=== PATIENT | male | born 1960 | race Hispanic/Latino ===

== ENCOUNTER 2019-12-10 10:41 | Outpatient (CLI) | payer BC, SELFPAY ==
[2019-12-10 11:27] LABS: Anion Gap 7 mmol/L (8-16); Blood Urea Nitrogen 26 mg/dL (9-20); Calcium 8.6 mg/dL (8.4-10.2); Carbon Dioxide 30 mmol/L (22-30); Chloride 101 mmol/L (98-107); Cholesterol 159 mg/dL (0-200); Estimated Glomerular Filt Rate > 60; Glucose 110 mg/dL (75-110); HDL Direct 42 mg/dL; Potassium 3.2 mmol/L (3.4-5.0); Sodium 138 mmol/L (137-145); Triglycerides 115 mg/dL (<150)
[2019-12-10 11:37] LABS: LDL Cholesterol Direct 91 mg/dL
[2019-12-10 11:59] LABS: MALB Creatinine Ratio < 5.4 mg/g (0-30); Microalbumin Urine Random < 6.0 mg/L (0-16.7)
== END 2019-12-10 10:42 | disposition home or self-care (01) ==
PROVIDERS: PCP Internal Medicine; Visit Provider Internal Medicine Endocrinology, Diabetes & Metabolism
DX: E11.65 Type 2 diabetes mellitus with hyperglycemia (principal)
CPT/HCPCS: 36415; 80048; 80061; 82043; 82607

== ENCOUNTER 2019-12-31 10:58 | Outpatient (CLI) | payer BC, SELFPAY ==
[2019-12-31 11:35] LABS: Anion Gap 8 mmol/L (8-16); Blood Urea Nitrogen 20 mg/dL (9-20); Calcium 9.3 mg/dL (8.4-10.2); Carbon Dioxide 32 mmol/L (22-30); Chloride 98 mmol/L (98-107); Estimated Glomerular Filt Rate > 60; Glucose 97 mg/dL (75-110); Potassium 3.7 mmol/L (3.4-5.0); Sodium 138 mmol/L (137-145)
== END 2019-12-31 10:59 | disposition home or self-care (01) ==
LOC: ANHLAB 11:01
PROVIDERS: PCP Internal Medicine; Visit Provider Internal Medicine Endocrinology, Diabetes & Metabolism
DX: E11.65 Type 2 diabetes mellitus with hyperglycemia (principal); E87.6 Hypokalemia
CPT/HCPCS: 36415; 80048

== ENCOUNTER 2020-07-23 10:10 | Outpatient (CLI) | payer BC, SELFPAY ==
[2020-07-23 12:29] LABS: Anion Gap 6 mmol/L (8-16); Blood Urea Nitrogen 20 mg/dL (9-20); Carbon Dioxide 30 mmol/L (22-30); Chloride 102 mmol/L (98-107); Estimated Glomerular Filt Rate > 60; Glucose 98 mg/dL (75-110); Potassium 3.4 mmol/L (3.4-5.0); Sodium 138 mmol/L (137-145)
== END 2020-07-23 10:11 | disposition home or self-care (01) ==
LOC: ANHWCLAB 10:13
PROVIDERS: PCP Internal Medicine; Visit Provider Internal Medicine Endocrinology, Diabetes & Metabolism
DX: E11.65 Type 2 diabetes mellitus with hyperglycemia (principal); E87.6 Hypokalemia
CPT/HCPCS: 36415; 80048

== ENCOUNTER 2020-09-02 07:23 | Outpatient (CLI) | payer BC, SELFPAY | END 2020-09-02 07:24 | disposition home or self-care (01) | LOC: ANHAUDIO 07:25 | PROVIDERS: PCP Internal Medicine; Visit Provider Nurse Practitioner Family | DX: R42 Dizziness and giddiness (principal); H90.3 Sensorineural hearing loss, bilateral | CPT/HCPCS: 92537; 92540; 92546; 92557; 92567 ==

== ENCOUNTER 2021-06-24 09:16 | Outpatient (CLI) | payer BC, SELFPAY ==
[2021-06-24 13:18] LABS: Alanine Aminotransferase 46 U/L (4-50); Albumin Level 4.4 g/dL (3.5-5.1); Alkaline Phosphatase 88 U/L (38-126); Anion Gap 9 mmol/L (8-16); Aspartate Amino Transferase 58 U/L (17-59); Bilirubin,Total 1.3 mg/dL (0.2-1.3); Blood Urea Nitrogen 16 mg/dL (9-20); Calcium 8.7 mg/dL (8.4-10.2); Carbon Dioxide 25 mmol/L (22-30); Chloride 106 mmol/L (98-107); Cholesterol 105 mg/dL (0-200); Estimated Glomerular Filt Rate > 60; Glucose 97 mg/dL (65-110); HDL Direct 48 mg/dL; Potassium 3.7 mmol/L (3.4-5.0); Sodium 140 mmol/L (137-145); Triglycerides 100 mg/dL (<150)
[2021-06-24 13:30] LABS: LDL Cholesterol Direct 31 mg/dL
[2021-06-24 13:49] LABS: Creatinine Urine 100.7 mg/dL
[2021-06-24 13:52] LABS: MALB Creatinine Ratio 44.8 mg/g (0-30); Microalbumin Urine Random 45.1 mg/L (0-16.7)
== END 2021-06-24 09:17 | disposition home or self-care (01) ==
LOC: ANHWCLAB 09:20
PROVIDERS: PCP Internal Medicine; Visit Provider Internal Medicine Endocrinology, Diabetes & Metabolism
DX: E11.65 Type 2 diabetes mellitus with hyperglycemia (principal); E11.69 Type 2 diabetes mellitus with other specified complication; E78.5 Hyperlipidemia, unspecified; E88.81 Metabolic syndrome and other insulin resistance
CPT/HCPCS: 36415; 80053; 80061; 82043; 82607; 84443

== ENCOUNTER 2022-04-28 11:35 | Outpatient (CLI) | payer BC, SELFPAY ==
[2022-04-28 13:16] LABS: Anion Gap 6 mmol/L (8-16); Blood Urea Nitrogen 16 mg/dL (9-20); Calcium 8.6 mg/dL (8.4-10.2); Carbon Dioxide 27 mmol/L (22-30); Chloride 107 mmol/L (98-107); Estimated Glomerular Filt Rate > 60; Glucose 250 mg/dL (65-110); Potassium 4.1 mmol/L (3.4-5.0); Sodium 140 mmol/L (137-145)
[2022-04-28 13:28] LABS: LDL Cholesterol Direct 64 mg/dL
[2022-04-28 13:37] LABS: Creatinine Urine 23.6 mg/dL
[2022-04-28 13:42] LABS: MALB Creatinine Ratio 59.3 mg/g (0-30)
== END 2022-04-28 11:36 | disposition home or self-care (01) ==
PROVIDERS: PCP Internal Medicine; Visit Provider Internal Medicine Endocrinology, Diabetes & Metabolism
DX: E11.65 Type 2 diabetes mellitus with hyperglycemia (principal)
CPT/HCPCS: 36415; 80048; 82043; 82607; 83721; 84443

== ENCOUNTER 2023-02-23 10:40 | Outpatient (CLI) | payer BC, SELFPAY ==
[2023-02-23 13:18] LABS: Alanine Aminotransferase 39 U/L (6-50); Albumin Level 4.5 g/dL (3.5-5.1); Alkaline Phosphatase 126 U/L (38-126); Anion Gap 15 mmol/L (8-16); Aspartate Amino Transferase 52 U/L (17-59); Blood Urea Nitrogen 30 mg/dL (9-20); Calcium 9.5 mg/dL (8.4-10.2); Carbon Dioxide 20 mmol/L (22-30); Chloride 105 mmol/L (98-107); Cholesterol 197 mg/dL (0-200); Estimated Glomerular Filt Rate > 60; Glucose 240 mg/dL (65-110); HDL Direct 57 mg/dL; Potassium 3.7 mmol/L (3.4-5.0); Sodium 140 mmol/L (137-145); Triglycerides 89 mg/dL (<150)
[2023-02-23 13:29] LABS: LDL Cholesterol Direct 108 mg/dL
[2023-02-23 13:32] LABS: Vitamin D 25 Hydroxy 32.7 ng/mL
[2023-02-23 13:50] LABS: Thyroid Stimulating Hormone 0.499 uIU/mL (0.465-4.680)
[2023-02-23 14:15] LABS: Creatinine Urine 49.1 mg/dL
[2023-02-23 14:16] LABS: MALB Creatinine Ratio 18.1 mg/g (0-30); Microalbumin Urine Random 8.9 mg/L (0-16.7)
== END 2023-02-23 10:41 | disposition home or self-care (01) ==
LOC: ANHWCLAB 10:42
PROVIDERS: PCP Internal Medicine; Visit Provider Internal Medicine Endocrinology, Diabetes & Metabolism
DX: E11.69 Type 2 diabetes mellitus with other specified complication (principal); E11.65 Type 2 diabetes mellitus with hyperglycemia; E55.9 Vitamin D deficiency, unspecified; E78.5 Hyperlipidemia, unspecified
CPT/HCPCS: 36415; 80053; 80061; 82043; 82306; 82607; 84443

== ENCOUNTER 2023-02-23 11:22 | Emergency (ER) | payer BC, SELFPAY ==
--- NOTE | ~2023-02-23 | XR_ITS ---
EXAMINATION: XR chest 2V DATE: 02/23/2023 12:02 INDICATION: Cough. TECHNIQUE: Frontal and lateral views of the chest were obtained. COMPARISON: None. FINDINGS: There is no pneumonia, pleural effusion, or pneumothorax. The heart size is normal. There i s a prominent left paracardial fat pad. There is a left chest wall pacer with leads in the right atri um and right ventricle. There is mild chronic anterior wedging of multiple midthoracic vertebral bodi es. IMPRESSION: 1. No acute cardiopulmonary disease. Reviewed, dictated and finalized at location A. WOOD DEALER
--- NOTE | 2023-02-23 11:26 | ED.URI ---
HPI - URI/Sore Throat General Chief Complaint: Upper Respiratory Infection Stated Complaint: Cough Time Seen by Provider: 02/23/23 11:26 Source: patient Mode of arrival: ambulatory Limitations: no limitations History of Present Illness HPI Narrative: Patient is a 62-year-old male who presents with worsening cough and congestion for over 10 days. Patient was seen at a different Urgent Care 02/13 and was given doxycycline and Tylenol with codeine. At that time patient was negative for flu and COVID. Patient finish doxycycline and states he is still having a productive cough. Denies any fever, sore throat, ear pain, nausea, vomiting, diarrhea. Related Data Home Medications Medication Instructions Recorded Confirmed amlodipine 10 mg tablet 10 mg PO DAILY 04/16/19 02/23/23 aspirin 325 mg tablet 325 mg PO DAILY 04/16/19 02/23/23 folic acid 1 mg tablet 1 mg PO DAILY 04/16/19 02/23/23 losartan 100 1 tablet PO DAILY 04/16/19 02/23/23 mg-hydrochlorothiazide 25 mg tablet meloxicam 7.5 mg tablet 7.5 mg PO DAILY 04/16/19 02/23/23 methotrexate sodium 2.5 mg tablet See Rx Instructions .Route .COMPLEX 04/16/19 02/23/23 ranolazine 500 mg tablet,extended 500 mg PO Q12H 04/16/19 02/23/23 release,12 hr (Ranexa) Allergies Allergy/AdvReac Type Severity Reaction Status Date / Time No Known Allergies Allergy Verified 02/23/23 10:07 Review of Systems Review of Systems: All systems reviewed & are unremarkable except as noted in HPI and below Constitutional: Constitutional: Denies body ache(s), Denies chills, Denies fatigue, Denies fever(s), Denies headache(s), Denies malaise and Denies weakness Eyes: Eyes: Denies blurry vision, Denies itchy eyes and Denies loss of vision ENT: Denies otalgia, Denies headache(s), Reports nasal congestion, Denies sinus pain and Denies sore throat Cardiovascular: Cardiovascular: Denies chest pain, Denies irregular heart rhythm and Denies dyspnea Respiratory: Respiratory: Reports cough and Denies dyspnea Gastrointestinal: Gastrointestinal: Denies abdominal pain, Denies diarrhea, Denies nausea and Denies vomiting Musculoskeletal: Musculoskeletal: Denies back pain, Denies myalgias and Denies arthralgias Integumentary/Breasts: Skin/Breast: Denies pruritus and Denies rash Neurologic: Denies headache(s), Denies loss of vision and Denies weakness Psychiatric: Psychiatric: Reports no additional psychiatric complaints Endocrine: Endocrine: Denies fatigue Allergic/Immunologic: Allergic/Immunologic: Denies itchy eyes 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 Erectile dysfunction Hypertension Hypokalemia Metabolic syndrome Morbid obesity Neuropathy Pacemaker Pure hypercholesterolemia SOB (shortness of breath) Type 2 diabetes mellitus with hyperglycemia Surgical History Surgical History No pertinent past surgical history Family History Family History Other Family history of genitourinary disease Hypertension Social History Social History Smoking packs per day: 1 Smoking cigarettes per day: 20.0 Years smoked: 32 Smoking pack-years: 32.00 Smoking status: Former smoker Tobacco type: cigarettes Smoking end date: 03/27/09 Alcohol intake: current Alcohol use details: occasionally Substance use: never Lack of Transportation: No Lack of Food: Never True Current Housing: I Have Housing Concerned About Future Housing: No Difficulty Paying Gas/Electric Bills: No Difficulty Paying for Meds: No Currently Unemployed: No Education: High School Diploma/GED Difficulty w/ Childcar
[2023-02-23 11:33] VITALS: BP 135/73; PULSE 78; RESP 16; TEMP 36.3; O2SAT 100
== END 2023-02-23 12:15 | disposition home or self-care (01) ==
PROVIDERS: Emergency Provider Nurse Practitioner Family; PCP Internal Medicine
DX: J32.9 Chronic sinusitis, unspecified (principal); J40 Bronchitis, not specified as acute or chronic; Z87.891 Personal history of nicotine dependence; M19.90 Unspecified osteoarthritis, unspecified site; J44.9 Chronic obstructive pulmonary disease, unspecified; E78.5 Hyperlipidemia, unspecified; E11.9 Type 2 diabetes mellitus without complications; I10 Essential (primary) hypertension; E66.01 Morbid (severe) obesity due to excess calories; Z68.39 Body mass index [BMI] 39.0-39.9, adult; Z95.0 Presence of cardiac pacemaker; E78.00 Pure hypercholesterolemia, unspecified; Z79.82 Long term (current) use of aspirin; Z79.84 Long term (current) use of oral hypoglycemic drugs; Z79.4 Long term (current) use of insulin
CPT/HCPCS: 36415; 71046; 80053; 80061; 82043; 82306; 82607; 84443; 99213; G0463

== ENCOUNTER 2023-03-05 10:00 | Emergency (ER) | payer BC, SELFPAY ==
[2023-03-05 10:10] VITALS: BP 158/68; PULSE 76; RESP 18; TEMP 36.3; O2SAT 97
--- NOTE | 2023-03-05 10:46 | PC.NURSE ---
Asked to speak to pt, d/t him berating and interrupting stone decorator from doing her job. pt unwilling to listen, pt educated on process for rooms when back is full. pt not willing to wait, asked for bracelet to be taken off, asked for this global technical writer's name. bracelet removed, name given. pt ambulatory out of ED
--- NOTE | 2023-03-05 10:50 | PC.NURSE ---
Pt up to intake desk x 3, verbally aggressive and demanding to be taken back to a room right away. This RN attempted deescalation and pt remained agitated over 28 minute wait time. XRAY ordered per protocol, pt wanting to know wait time and refusing to calm down. Pt demanding to speak with cloth mercerizing supervisor, Dandre GORDONchargeback specialist nurse attempted to explain procedure to patient and to also deescalate pt and family member without success. Pt states he will not remain here to be seen. Pt ambulated out in NAD.
== END 2023-03-05 11:12 | disposition left against medical advice (07) ==
LOC: ANHED 11:08
PROVIDERS: PCP Internal Medicine
DX: S99.922A Unspecified injury of left foot, initial encounter (principal)
CPT/HCPCS: 99199

== ENCOUNTER 2023-04-01 11:31 | Emergency (ER) | payer BC, SELFPAY ==
[2023-04-01 12:00] VITALS: BP 154/63; PULSE 77; RESP 20; TEMP 37.1; O2SAT 97
--- NOTE | 2023-04-01 12:04 | ED.WOUNDLAC ---
HPI - Wound/Laceration General Chief Complaint: Wound/Laceration Stated Complaint: Wound Check Time Seen by Provider: 04/01/23 12:15 Source: patient and RN notes reviewed Mode of arrival: ambulatory Limitations: no limitations History of Present Illness HPI narrative: 62-year-old male presents with concern for wound check. Reports he had a finger amputation and was seen at [facility]. He reports the dressing is bleeding. He called [facility] and was told that he could come and have the dressing redone. Related Data Home Medications Medication Instructions Recorded Confirmed amlodipine 10 mg tablet 10 mg PO DAILY 04/16/19 04/01/23 aspirin 325 mg tablet 325 mg PO DAILY 04/16/19 04/01/23 folic acid 1 mg tablet 1 mg PO DAILY 04/16/19 04/01/23 losartan 100 1 tablet PO DAILY 04/16/19 04/01/23 mg-hydrochlorothiazide 25 mg tablet meloxicam 7.5 mg tablet 7.5 mg PO DAILY 04/16/19 04/01/23 methotrexate sodium 2.5 mg tablet See Rx Instructions .Route .COMPLEX 04/16/19 04/01/23 ranolazine 500 mg tablet,extended 500 mg PO Q12H 04/16/19 04/01/23 release,12 hr (Ranexa) doxycycline monohydrate 100 mg 100 mg PO DIRECTED 04/01/23 04/01/23 capsule oxycodone-acetaminophen 5 mg-325 1 tablet PO DIRECTED 04/01/23 04/01/23 mg tablet Allergies Allergy/AdvReac Type Severity Reaction Status Date / Time No Known Allergies Allergy Verified 04/01/23 12:15 Review of Systems Review of Systems: CONSTITUTIONAL: Denies malaise, chills, sweats, or fever. 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 Erectile dysfunction Hypertension Hypokalemia Metabolic syndrome Morbid obesity Neuropathy Pacemaker Pure hypercholesterolemia SOB (shortness of breath) Type 2 diabetes mellitus with hyperglycemia Surgical History Surgical History No pertinent past surgical history Family History Family History Other Family history of genitourinary disease Hypertension Social History Social History Smoking packs per day: 1 Smoking cigarettes per day: 20.0 Years smoked: 32 Smoking pack-years: 32.00 Smoking status: Former smoker Tobacco type: cigarettes Smoking end date: 03/27/09 Alcohol intake: current Alcohol use details: occasionally Substance use: never Lack of Transportation: No Lack of Food: Never True Current Housing: I Have Housing Concerned About Future Housing: No Difficulty Paying Gas/Electric Bills: No Difficulty Paying for Meds: No Currently Unemployed: No Education: High School Diploma/GED Difficulty w/ Childcare or Family Care: No Comments At time of signature, agree with nursing past medical, surgical, social and family history. There is no relevant family history pertinent to the presenting complaint Exam Narrative: GENERAL: Well-appearing, well-nourished, and in no acute distress. HEART: Regular rate and rhythm. SKIN: Warm, dry. Second digit of left hand amputated at the DIP joint, sutures intact, wound approximated, however there is an area of continuous bleeding on the lateral digit. No surrounding erythema, edema, redness, warmth NEURO: Alert and oriented x3. PSYCH: Normal mood and affect Course Course Emergency Course: Hemostasis attempted with pressure, Surgicel, and time. I was not able to achieve hemostasis with these measures, 1 simple interrupted suture to the bleeding area was placed and hemostasis was achieved. W
== END 2023-04-01 14:25 | disposition home or self-care (01) ==
PROVIDERS: Emergency Provider Nurse Practitioner; PCP Internal Medicine
DX: M96.830 Postprocedural hemorrhage of a musculoskeletal structure following a musculoskeletal system procedure (principal); Z87.891 Personal history of nicotine dependence; J44.9 Chronic obstructive pulmonary disease, unspecified; E78.5 Hyperlipidemia, unspecified; I10 Essential (primary) hypertension; E66.01 Morbid (severe) obesity due to excess calories; Z68.39 Body mass index [BMI] 39.0-39.9, adult; E11.40 Type 2 diabetes mellitus with diabetic neuropathy, unspecified; Z95.0 Presence of cardiac pacemaker; E78.00 Pure hypercholesterolemia, unspecified; M19.90 Unspecified osteoarthritis, unspecified site; Z79.82 Long term (current) use of aspirin
CPT/HCPCS: 12001; 99212; G0463

== ENCOUNTER 2023-04-19 10:20 | Emergency (ER) | payer BC, SELFPAY ==
--- NOTE | ~2023-04-19 | XR_ITS ---
XR finger 2nd LT min 2V 04/19/2023 11:03 Indication: Status amputation. Swelling and discoloration. Procedure: 3 views left second finger Comparison: No prior studies for comparison. Findings: There is a comminuted fracture of the second distal phalanx with amputation. No other fract ure. Mild osteoarthritis of the second finger. 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 Reviewed, dictated and finalized at location B. MEL TENDER Impression: 1: Status post partial amputation of the left second finger at the middle phala nx with adjacent comminuted fracture fragments in the soft tissues.
--- NOTE | 2023-04-19 10:27 | ED.WOUNDLAC ---
HPI - Wound/Laceration General Chief Complaint: Wound/Laceration Stated Complaint: Wound Check Time Seen by Provider: 04/19/23 10:23 Source: patient Mode of arrival: ambulatory Limitations: no limitations History of Present Illness HPI narrative: Atilio is a 62-year-old male patient presenting to the clinic today for a wound check to his left 2nd finger. He reports the left 2nd digit on a chain still on March 31. Was sent to [facility] and the distal finger was not salvageable so flap closure was performed. Patient was seen in the [facility] on April 01 for bleeding coming from the wound and an extra suture was placed at that time closing the wound. Patient was initially placed on doxycycline from initial incident on March 31. Tetanus up-to-date. Has an appointment at [facility]- plastic surgeon next week for suture removal. Comes in today because finger became red and swollen yesterday. He denies any foul odor or discharge coming from the wound. Redness and swelling extends to the entire finger but does not extend into the hand at this time. He denies any fever or chills. Just reports a throbbing pain in his finger. Related Data Home Medications Medication Instructions Recorded Confirmed amlodipine 10 mg tablet 10 mg PO DAILY 04/16/19 04/19/23 aspirin 325 mg tablet 325 mg PO DAILY 04/16/19 04/19/23 folic acid 1 mg tablet 1 mg PO DAILY 04/16/19 04/19/23 losartan 100 1 tablet PO DAILY 04/16/19 04/19/23 mg-hydrochlorothiazide 25 mg tablet meloxicam 7.5 mg tablet 7.5 mg PO DAILY 04/16/19 04/19/23 methotrexate sodium 2.5 mg tablet See Rx Instructions .Route .COMPLEX 04/16/19 04/19/23 ranolazine 500 mg tablet,extended 500 mg PO Q12H 04/16/19 04/19/23 release,12 hr (Ranexa) Allergies Allergy/AdvReac Type Severity Reaction Status Date / Time No Known Allergies Allergy Verified 04/01/23 12:15 Review of Systems Review of Systems: Pertinent positives per HPI. Patient denies any fever, chills, rash, headache, visual changes, dizziness, cough, runny nose, sore throat, shortness of breath, chest pain, palpitations, nausea, vomiting, diarrhea, constipation, abdominal pain, or any urinary issues. 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 Erectile dysfunction Hypertension Hypokalemia Metabolic syndrome Morbid obesity Neuropathy Pacemaker Pure hypercholesterolemia SOB (shortness of breath) Type 2 diabetes mellitus with hyperglycemia Surgical History Surgical History No pertinent past surgical history Family History Family History Other Family history of genitourinary disease Hypertension Social History Social History Smoking packs per day: 1 Smoking cigarettes per day: 20.0 Years smoked: 32 Smoking pack-years: 32.00 Smoking status: Former smoker Tobacco type: cigarettes Smoking end date: 03/27/09 Alcohol intake: current Alcohol use details: occasionally Substance use: never Lack of Transportation: No Lack of Food: Never True Current Housing: I Have Housing Concerned About Future Housing: No Difficulty Paying Gas/Electric Bills: No Difficulty Paying for Meds: No Currently Unemployed: No Education: High School Diploma/GED Difficulty w/ Childcare or Family Care: No Comments At the time of my signature, I reviewed and agree with the nursing past medical, surgical, social, and family history. There is no relevant family history pertinent to the patient complaint. Exam Narrative: General: Well-developed, obese, in no apparent distress Head: Normocephalic, atraumatic.
[2023-04-19 10:38] VITALS: BP 144/62; PULSE 76; RESP 18; TEMP 36.9; O2SAT 98
[2023-04-19] MEDS: cefTRIAXone 1 GM, LIDOCAINE HCL 1% LOCAL INJ 2.1 ML IM (11:49)
== END 2023-04-19 12:10 | disposition home or self-care (01) ==
PROVIDERS: Emergency Provider Nurse Practitioner Family; PCP Internal Medicine
DX: T81.49XA Infection following a procedure, other surgical site, initial encounter (principal); L03.012 Cellulitis of left finger; Z87.891 Personal history of nicotine dependence; J44.9 Chronic obstructive pulmonary disease, unspecified; E78.5 Hyperlipidemia, unspecified; E66.01 Morbid (severe) obesity due to excess calories; Z68.39 Body mass index [BMI] 39.0-39.9, adult; Z95.0 Presence of cardiac pacemaker; E78.00 Pure hypercholesterolemia, unspecified; E11.40 Type 2 diabetes mellitus with diabetic neuropathy, unspecified; M19.90 Unspecified osteoarthritis, unspecified site
CPT/HCPCS: 73140; 96372; 99213; G0463; J0696

== ENCOUNTER 2023-12-14 13:11 | Outpatient (CLI) | payer BC, SELFPAY ==
[2023-12-14 14:40] LABS: Free T4 Free Thyroxine 0.88 ng/mL (0.78-2.19); Vitamin D 25 Hydroxy 35.2 ng/mL
[2023-12-14 15:13] LABS: Alanine Aminotransferase 31 U/L (6-50); Alkaline Phosphatase 83 U/L (38-126); Anion Gap -2 mmol/L (4-12); Aspartate Amino Transferase 36 U/L (17-59); Bilirubin,Total 0.8 mg/dL (0.2-1.3); Blood Urea Nitrogen 13 mg/dL (9-20); Calcium 8.7 mg/dL (8.4-10.2); Carbon Dioxide 29 mmol/L (22-30); Chloride 99 mmol/L (98-107); Cholesterol 169 mg/dL (0-200); Estimated Glomerular Filt Rate > 60; Glucose 98 mg/dL (65-110); HDL Direct 47 mg/dL; Potassium 3.7 mmol/L (3.4-5.0); Sodium 126 mmol/L (137-145); Triglycerides 120 mg/dL (<150)
[2023-12-14 15:24] LABS: LDL Cholesterol Direct 101 mg/dL
== END 2023-12-14 13:12 | disposition home or self-care (01) ==
PROVIDERS: PCP Internal Medicine; Visit Provider Internal Medicine Endocrinology, Diabetes & Metabolism
DX: E11.65 Type 2 diabetes mellitus with hyperglycemia (principal); E55.9 Vitamin D deficiency, unspecified; E78.5 Hyperlipidemia, unspecified; E88.810 Metabolic syndrome
CPT/HCPCS: 36415; 80053; 80061; 82306; 82607; 84439; 84443

== ENCOUNTER 2024-05-02 09:18 | Outpatient (CLI) | payer BC, SELFPAY ==
--- OUTSIDE RECORDS SUMMARY | 2024-05-02 09:29 | XMS_ITS | CCD ---
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 Active losartan-hydroc hlorothiazide (HYZAAR) 100-25 mg tablet Active meloxicam (MOBIC) 7.5 mg tablet Active NACL INH/NEBULIZER Inhale. Active albiglutide (Tanzeum) 30 mg/0.5 mL pen injector Tanzeum 30 mg/0.5 mL subcutaneous pen injector 100 units daily Active albuterol HFA (PROVENTIL HFA;VENTOLIN HFA) 90 mcg/actuation inhaler albuterol sulfate HFA 90 mcg/actuation aerosol inhaler Active aspirin 325 mg tablet Active dulaglutide 1.5 mg/0.5 mL pen injector Inject 1.5 mg under the skin per week. Active empagliflozin 10 mg tablet 10 mg 1 (one) time each day. Active folic acid (FOLVITE) 1 mg tablet Active glimepiride (AMARYL) 2 mg tablet Take 2 mg by mouth 1 (one) time each day. Active glyBURIDE (DIABETA) 5 mg tablet glyburide 5 mg tablet TAKE 2 TABLETS BY MOUTH TWICE DAILY Active hydrOXYzine HCL (ATARAX) 25 mg tablet hydroxyzine HCl 25 mg tablet Active insulin degludec (Tresiba FlexTouch U-200) 200 unit/mL (3 mL) injection Active lisinopriL (PRINIVIL,ZESTR [place]) 20 mg tablet lisinopril 20 mg tablet TAKE 1 TABLET BY MOUTH DAILY Active meclizine (ANTIVERT) 25 mg tablet meclizine 25 mg tablet TK 1 T PO TID PRN Active meloxicam (MOBIC) 15 mg tablet Take 1 tablet by mouth 1 (one) time each day. 1 Active metFORMIN (GLUCOPHAGE) 1,000 mg tablet Acti ve methotrexate 2.5 mg tablet TAKE 7 TABLETS BY MOUTH EVERY 7 DAYS 1 Active methylPREDNISol one (MEDROL DOSPAK) 4 mg tablet follow package directions. You may use a refill if you have flares in the future 0 Active metoprolol tartrate (LOPRESSOR) 25 mg tablet metoprolol tartrate 25 mg tablet Active pioglitazone (ACTOS) 45 mg tablet pioglitazone 45 mg tablet Active ranolazine (RANEXA) 500 mg 12 hr tablet Active simvastatin (ZOCOR) 40 mg tablet Active traMADoL (ULTRAM) 50 mg tablet tramadol 50 mg tablet TK 1 T PO Q 6 H NEEDED FOR MODERATE PAIN Active dulaglutide 1.5 mg/0.5 mL pen injector Inject 4.5 mg under the skin per week. Active folic acid (FOLVITE) 1 mg tablet Take 1 tablet by mouth 1 (one) time each day. 1 Active doxycycline (VIBRAMYCIN) 100 mg capsule Take 100 mg by mouth in the morning and at bedtime. 2 Active ezetimibe (ZETIA) 10 mg tablet Take 10 mg by mouth 1 (one) time each day. 2 Active FreeStyle Yaz 2 Sensor kit 2 Active BD Shelby 2nd Gen Pen Needle 32 gauge x 5/32 needle USE WITH INSULIN INJECTION TWICE DAILY 2 Active rosuvastatin (CRESTOR) 40 mg tablet Take 40 mg by mouth 1 (one) time each day. 2 Active amLODIPine (NORVASC) 10 mg tablet Take 10 mg by mouth 1 (one) time each day. 2 Active Jardiance 25 mg tablet Take 1 tablet by mouth 1 (one) time each day. 2 Active aspirin 325 mg EC tablet Take 1 tablet by mouth 1 (one) time each day. 2 Active folic acid (FOLVITE) 1 mg tablet Take 1,000 mcg by mouth 1 (one) time each day. 2 Active Active Problems Problem Noted Date Diagnosed Date Chronic pain of right knee 10/28/2016 Morbid obesity with body mas s index (BMI) of 40.0 to 44.9 in adult 07/18/2016 Overview (09/23/2020): Morbid obesity with BMI of 40.0-44.9, adult Shoulder pain 07/18/2016 Overview (09/23/2020): Chronic pain of both shoulders Unknown and unspecified causes of morbidity 02/25 Overview (09/23/2020): Encounter for long-term (current) use of high-risk medication Diabetes mellitus 08/10/2013 Overview (09/23/2020): Diabetes mellitus Hypertension 08/10/2013 Overview (09/23/2020): HTN (hypertension) Rheumatoid arthritis 08/10/2013 Overview (09/23/2020): Rheumatoid arthritis Hyperlipidemia 05/25/2012 Overview (09/23/2020): Hyperlipidemia Immunizations Immunization Administration Dates Next Due COVID-19, mRNA, LNP-S, PF, 3 0 mcg/0.3 mL dose 02/11/2021,06/30/2020,06/09/2020 Influenza, high-dose, trivalent, PF 02/21/2017,1 05/10/2014 Influenza, live, intranasal 01/22/2018 Influenza, live, intranasal, quadrivalent 02/04/2020,02/19/2019,01/22/2018,02/14 Influenza, seasonal, intrade rmal, preservative free 01/17/2014 Influenza, split virus, trivalent, PF 02/17/2021 ,02/04/2020,02/08/2017 Influenza, unspecified 01/24/2019 Pneumococcal conjugate PCV 13 02/19/2019 Pneumococcal polysaccharide PPV23 02/15/2016 Td, adult, 2 Lf tetanus toxo id, preservative free, adsorbed 05/17/2017 Social History Tobacco Use Types Packs/Day Years Used Date Smoking Tobacco: Former Cigarettes Smokeless Tobacco: Never Tobacco Cessation:Counseling Given: Not Answered Alcohol Use Standard Drinks/Week Yes 5 (1 standard drink = 0.6 oz pure alcohol) Sex and Gender Information Value Date Recorded Sex Assigned at Not on file Legal Sex Male 11:20 AM PDT Gender Identity Not on file Sexual Orientation Not on file Last Filed Vital Signs Vital Sign Reading Time Taken Comments Blood Pressure 132/69 09/29/2021 8:39 AM CDT Pulse 60 09/29/2021 8:39 AM CDT Temperature 36.1 C (97 F) 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
--- OUTSIDE RECORDS SUMMARY | 2024-05-02 09:29 | XMS_ITS | Clinical Summary ---
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 Name Role Phone Unavailable Primary Care Provider Unavailabl e Social History Tobacco Use Types Packs/Day Years Used Date Smoking Tobacco: Never Assessed Intimate Partner Violence Answer Date R ecorded Insults You Not on file 07/10/2020 Threatens You Not on file 07/10/2020 Screams at You Not on file 07/10/2020 Physically Hurt Not on file 07/10/2020 Intimate Partner Violence Score Not on file 07/10/2020 Stress Answer Date Recorded Stress in your Life Not on file 01/31/2024 Dealing with Stress 3 01/31/2024 Sex and Gender Information Value Date Recorded Sex Assigned at Not on file Legal Sex Male 12:18 AM SPARE PERSON Gender Identity Not on file Sexual Orientation Not on file Plan of Treatment Health Maintenance Due Date Last Done Comments Dental Cleaning/Exam 1960 HIV Screening 1960 Hepatitis C Screening 1960 Annual Preventive Exam 11/08/1977 Hep B Infection Screening - Triple Screen 11/08/1977 Tetanus Diphtheria and Pertu ssis Immunization (1 - Tdap) 11/08/1978 Colorectal Cancer Screening 11/08/1989 Zoster Immunization (1 of 2) 11/08/2009 Covid-19 Immunization (1 - 2 02425 season) 2023 Influenza Immunization (#1) 2023 HIB Immunization Aged Out No longer e ligible based on patient's age to complete this topic HPV Immunization Aged Out No longer e ligible based on patient's age to complete this topic Hepatitis A Immunization Aged Out No longer eligible based on patient's age to complete this topic Hepatitis B Immunization Aged Out No longer eligible based on patient's age to complete this topic Pneumococcal: Ped (0 to 5 Yr s) and At-Risk Member (6 to 64 Yrs) Aged Out No longer e ligible based on patient's age to complete this topic Polio Immunization Aged Out No longer eligible based on patient's age to complete this topic
--- OUTSIDE RECORDS SUMMARY | 2024-05-02 09:29 | XMS_ITS | Clinical Summary ---
Author Organization [facility] Address [address] [place] [address] Care Team Providers Care Trim Setter Name Role Phone Alphonso Echols MD Primary Care Provider Allergies No known active allergies Medications amLODIPine (NORVASC) 10 mg tablet take 1 tablet by oral route every day 0 0 016 Active losartan-hydroc hlorothiazide (HYZAAR) 100-25 mg per tablet take 1 tablet by oral route every day 0 0 016 Active sodium chloride 0.9 % solution for nebulization with albuterol 5 mg/mL solution for nebulization 0.6 mg/mL Take by nebulization Active glyBURIDE (DIABETA) 5 mg tablet glyburide 5 mg tablet TAKE 2 TABLETS BY MOUTH TWICE DAILY Active sildenafiL (VIAGRA) 50 mg tablet TK ONE T PO 30 MINUTES TO 4 HOURS PRIOR TO SEXUAL ACTIVITY Active albuterol HFA (PROVENTIL HFA,VENTOLIN HFA,PROAIR HFA) 90 mcg/actuation inhaler albuterol sulfate HFA 90 mcg/actuation aerosol inhaler Active OneTouch Verio strip Active Accu-Chek Fastclix Lancet Drum misc USE TO CHECK BLOOD SUGAR BID 020 Active meclizine (ANTIVERT) 25 mg tablet meclizine 25 mg tablet TK 1 T PO TID PRN Active OneTouch Delica Plus Lancet 30 gauge misc 020 Active ranolazine ER (RANEXA) 500 mg 12 hr tablet Take 1 tablet (500 mg total) by mouth 2 (two) times a day 020 Active lisinopriL (PRINIVIL,ZESTR IL) 20 mg tablet lisinopril 20 mg tablet TAKE 1 TABLET BY MOUTH DAILY Active traMADoL (ULTRAM) 50 mg tablet Active hydrOXYzine (ATARAX) 25 mg tablet hydroxyzine HCl 25 mg tablet Active pioglitazone (ACTOS) 45 mg tablet Active methylPREDNISol one (MEDROL DOSEPACK) 4 mg Dosepack TAKE DIRECTED YOU MAY USE A REFILL IF YOU HAVE FLARES IN THE FUTURE 21 tablet 021 Active cholecalciferol (VITAMIN D-3) 50,000 unit capsule Take by mouth 016 Active ezetimibe (ZETIA) 10 mg tablet ezetimibe 10 mg tablet 970 Active BD Shelby 2nd Gen Pen Needle 32 gauge x needle USE WITH INSULIN INJECTION TWICE DAILY 022 Active rosuvastatin (CRESTOR) 40 mg tablet Take 1 tablet (40 mg total) by mouth daily 022 Active metFORMIN (GLUCOPHAGE) 1,000 mg tablet Take 1 tablet (1,000 mg total) by mouth 2 (two) times a day 022 Active Jardiance 25 mg tablet Take 1 tablet (25 mg total) by mouth daily 022 Active TRESIBA 200 unit/mL (3 mL) pen for injection INJECT 120 UNITS SUBCUTANEOUSLY ONCE DAILY 022 Active Ozempic 2 mg/dose (8 mg/3 mL) pen injector injection Inject 2 mg under the skin once a week 023 Active FreeStyle Yaz 2 Sensor kit as directed 023 Active glimepiride (AMARYL) 4 mg tablet Take 1 tablet (4 mg total) by mouth daily 023 Active methylPREDNISol one (Medrol, Anibal,) 4 mg Dosepack follow package directions 1 packet 023 Active HumaLOG 100 unit/mL pen for injection MAX 60 UNITS PER DAY, USE DIRECTED PER SLIDING SCALE 023 Active HYDROcodone-ursula taminophen (NORCO) 5-325 mg per tablet Take 1 tablet by mouth every 8 (eight) hours 023 Active diclofenac sodium (VOLTAREN) 1 % gel APPLY TOPICALLY TO AFFECTED AREA TWICE DAILY 023 Active fluorouraciL (EFUDEX) 5 % cream 023 Active Space Chamber with Large Mask spacer as directed 023 Active meloxicam (MOBIC) 15 mg tablet Take 1 tablet by mouth once daily 30 tablet 024 Active Nexletol 180 mg tablet Take 1 tablet by mouth daily 024 Active Toshia Aspirin 325 mg enteric coated tablet Take 1 tablet (325 mg total) by mouth daily 90 tablet 024 Active folic acid (FOLVITE) 1 mg tablet Take 1 tablet by mouth once daily 30 tablet 11 024 Active methotrexate 2.5 mg tablet TAKE 7 TABLETS BY MOUTH ONCE A WEEK 84 tablet 025 Active Mounjaro 2.5 mg/0.5 mL pen injector injection Mounjaro 2.5 mg/0.5 mL pen injector Active methotrexate 2.5 mg tablet TAKE 7 TABLETS BY MOUTH ONCE A WEEK 84 tablet 024 2024 Discontinued Active Problems Problem Noted Date Diagnosed Date Chronic pain of right knee 10/28/2016 Morbid obesity with body mas s index (BMI) of 40.0 to 44.9 in adult 07/18/2016 Overview (08/19/2016): Morbid obesity with BMI of 40.0-44.9, adult Shoulder pain 07/18/2016 Overview (08/19/2016): Chronic pain of both shoulders Drug indicated 03/16/2015 Overview (07/01/2016): Encounter for long-term (current) use of high-risk medication Diabetes mellitus 08/10/2013 Overview (07/01/2016): Diabetes mellitus Rheumatoid arthritis 08/10/2013 Overview (07/01/2016): Rheumatoid arthritis Hypertension 08/10/2013 Overview (07/01/2016): HTN (hypertension) Hyperlipidemia 05/25/2012 Overview (07/01/2016): Hyperlipidemia Encounters Date Type Department Care Team Description 04/25/2024 1:43 PM FUNDRAISING OFFICER - 04/25/2024 11:59 PM FUNDRAISING OFFICER Hospital Encounter [facility] [address] [place] [id number] Discharge Disposition: Discharge to home or self care 04/25/2024 12:30 PM FUNDRAISING OFFICER Office Visit [facility] Rheumatology at [facility] [address] [place] [id number] Farida Serrano MD Rheumatoid arthritis with positive rheumatoid factor, involving unspecified site (HCC) (Primary Dx); Long-term use of high-risk medication from Last 3 Months Immunizations Name Administration Dates Next Due Influenza LAIV (Nasal) 02/04/2020,2018,01/22/2018,02/14 Influenza, Quadrivalent, Hig h Dose, Preservative Free, Intrr 02/17/2021 Influenza, Quadrivalent, Spl it, Intramuscular 02/04/2020,02/19/2019,02/15/2016 Influenza, Quadrivalent, Spl it, Preservative Free, Intramuscular 12/13/2022,12/21/2021,02/04/2020,01/22 Influenza, Trivalent, High D ose, Split, Preservative Free, Intramuscular 02/21/2017,03/09/2015 Influenza, Trivalent, Preser vative Free, Intramuscular 01/17/2024,02/17/2021,02/04/2020,02/08 Influenza, Trivalent, Split, Preservative Free, Intradermal 01/17/2014 Influenza, Unspecified 01/24/2019 [employer] SARS-CoV-2 Monovalent Vaccination (12+ Yrs) PURPLE 02/11/2021,06/30/2020,06/09/2020 Pneumococcal Conjugate PCV 13 02/19/2019 Pneumococcal Polysaccharide PPV23 02/25/2022, TD Preservative Free 05/17/2017 Td, adsorbed 05/17/2017 Tdap 03/31/2023 Family History Medical History Relation Name Comments Other Father Alive and well; /Other; Hypertension Mother Hypertension; Relation Name Status Comments Father Alive Mother Social History Tobacco Use Types Packs/Day Years Used Date Smoking Tobacco: Former Smokeless Tobacco: Never Tobacco Cessation:Counseling Given: Not Answered Comments:Smoking History Packs/day: 1 Packs Alcohol Use Standard Drinks/Week Comments Yes 0 (1 standard drink = 0.6 oz pur e alcohol) AUDIT-C Answer Date Recorded Q1: How often do you have a drink containing alc ohol? 2-4 times a month 04/25/2024 Q2: How many drinks containi ng alcohol do you have on a typical day when you are drinking? 3 or 4 04/25/2024 Q3: How often do you have si x or more drinks on one occasion? Never 04/25/2024 PHQ-2 Answer Date Recorded PHQ-2 Score 0 11/14/2018 Sex and Gender Information Value Date Recorded Sex Assigned at Not on file Legal Sex Male 8:37 AM FUNDRAISING OFFICER Gender Identity Not on file Sexual Orientation Not on file Obstetrics History Last Filed Vital Signs Vital Sign Reading Time Taken Comments Blood Pressure 126/72 04/25/2024 12:38 PM FUNDRAISING OFFICER Pulse 60 04/25/2024 12:38 PM FUNDRAISING OFFICER Temperature 36.3 C (97.4 F) 04/25/2024 12:38 PM FUNDRAISING OFFICER Respiratory Rate 16 09/27/2023 11:53 AM CDT Oxygen Saturation 96% 04/25/2024 12:38 PM FUNDRAISING OFFICER Inhaled Oxygen Concentration - - Weight 114.5 kg (252 lb 8 oz) 04/25/2024 12:38 P M FUNDRAISING OFFICER Height 165.1 cm (5' 5 ) 04/25/2024 12:38 PM FUNDRAISING OFFICER Body Mass Index 42.02 04/25/2024 12:38 PM FUNDRAISING OFFICER Plan of Treatment Health Maintenance Due Date Last Done Comments Albumin Creatinine Ratio, Urine 1959 Colon Cancer Screening-Colonoscopy 1959 Hemoglobin A1C 1959 Hepatitis C Screening 1959 Prostate Cancer Screening-PSA 1959 Dilated Eye Exam 1959 Foot Exam 1959 Lipid Panel 1959 Hepatitis B Screening 11/08/1977 Regular Well Visit/Exam 18-64 11/08/1977 Zoster Vaccine (1 of 2) 11/08/1978 Depression Screening 05/01/2019 05/01/2018 Covid-19 Vaccine (2023-2 5 season) 2023 02/11/2021, 06/30/2020, 06/09/2020 eGFR 04/25/2025 04/25/2024, 12/26, 09/27/2023, Additional history exists Pneumococcal vaccine <65 (4 of 4 - PPSV23 or PCV20) 02/25/2027 02/25/2022, 02/19/2019, 02/15/2016 DTaP/Tdap/Td Vaccine (2 - Td or Tdap) 03/31/2033 03/31/2023, 05/17/2017, 05/17/2017 Influenza Vaccine Completed 01/17/2024, , 12/21/2021, Additional history exists Procedures Procedure Name Priority Date/Time Associated Diagnosis Comments EGFR Routine 04/25/2024 1:38 PM FUNDRAISING OFFICER Long-term use of high-risk medication COMPREHENSIVE METABOLIC PANEL Routine 04/25/2024 1:38 PM FUNDRAISING OFFICER Long-term use of high-risk medication CBC WITHOUT DIFFERENTIAL Routine 04/25/2024 1:38 PM FUNDRAISING OFFICER Long-term use of high-risk medication ERYTHROCYTE SEDIMENTATION RATE Routine 04/25/2024 1:38 PM FUNDRAISING OFFICER Rheumatoid arthritis with positive rheumatoid factor, involving unspecified site (HCC) from Last 3 Months Results * eGFR (04/25/2024 1:38 PM FUNDRAISING OFFICER) eGFR >90 >=60 mL/min/1. 73 m2 Comment: Interpretive Data Reference Interval Normal >/= 90 mL/min/1.73m2 Mildly decreased* 60 - 89 mL/min/1.73m2 Mildly to moderately decreased 45 - 59 mL/min/1.73m2 Moderately to severely decreased 30 - 44 mL/min/1.73m2 Severely decreased 15 - 29 mL/min/1.73m2 Kidney Failure < 15 mL/min/1.73m2 *Relative to young adult level Estimated glomerular filtration rate is determined by the 2020 CKD-EPI equation recommended by the National Kidney Foundation (A Unifying Approach to GFR Estimation: Recommendations of the NKF-ASK Task Force on Reassessing the Inclusion of Race in Diagnosing Kidney Disease, JASN 202). The CKD-EPI equation should not be used for patients with unstable renal function and has not been validated in children and those over 70. Current interpretive data was last reviewed 2021. Blood 04/25/2024 1:38 PM FUNDRAISING OFFICER 04/25/2024 3:58 PM FUNDRAISING OFFICER Farida Serrano MD LAB BLOOD ORDERABLES Final Result Performing Organization Address [facility] Co de Phone Number [facility] [address] [facility] [employer] [place], [place] [id number] * Erythrocyte sedimentation rate (04/25/2024 1:38 PM FUNDRAISING OFFICER) Pathologist [facility] Erythrocyte sedimentation rate 14 1 - 20 mm/hr Blood 04/25/2024 1:38 PM FUNDRAISING OFFICER 04/25/2024 3:39 PM FUNDRAISING OFFICER Farida Serrano MD LAB BLOOD ORDERABLES Final Result Performing Organization Address [facility] de Phone Number [facility] [address] [employer] [place] [place] [address] * (ABNORMAL) CBC without differential (04/25/2024 1:38 PM FUNDRAISING OFFICER) Pathologist [facility] WBC 6.8 3.8 - 9.9 K/cumm Hgb 13.4 13.0 - 17.5 g/dL [facility] Hct 41.6 38.9 - 50.3 % [facility] Plt 252 150 - 400 K/cumm [facility] MPV 11.6 9.1 - 12.3 fL [facility] RBC 4.08(L) 4.30 - 5.80 M/cumm [facility] MCV 102.0(H) 81.3 - 96.4 fL [facility] MCH 32.8 27.1 - 33.3 pg [facility] MCHC 32.2(L) 32.3 - 35.7 g/dL [facility] RDW CV 13.7 11.1 - 14.9 % [facility] RDW SD 50.8(H) 35.7 - 48.1 fL [facility] NRBC abs 0.00 0.00 - 0.01 K/cumm [facility] Blood 04/25/2024 1:38 PM FUNDRAISING OFFICER 04/25/2024 3:39 PM FUNDRAISING OFFICER us Farida Serrano MD LAB BLOOD ORDERABLES Final Result [facility] [address] Department [place] [address] * (ABNORMAL) Comprehensive metabolic panel (04/25/2024 1:38 PM FUNDRAISING OFFICER) Sodium 142 135 - 145 mmol/L Potassium, pl 4.1 3.3 - 4.9 mmol/L [facility] Chloride 103 97 - 110 mmol/L [facility] CO2 28 22 - 32 mmol/L [facility] Anion gap 11 2 - 15 mmol/L [facility] BUN 10 6 - 25 mg/dL [facility] Creatinine 0.74(L) 0.80 - 1.30 mg/dL [facility] Glucose 102 70 - 199 mg/dL [facility] Comment: Interpretive Data Fasting glucose >/= 126 mg/dl is diagnostic for diabetes. Fasting is defined as no caloric intake for at least 8 hours. Fasting glucose between 100 mg/dl to 125 mg/dl is diagnostic of prediabetes. In a patient with classic symptoms of hyperglycemia or hyperglycemic crisis, a random glucose >/= 200 mg/dl is diagnostic for diabetes. In the absence of unequivocal hyperglycemia, results should be confirmed by repeat testing. The classification and Diagnosis of Diabetes Diabetes Care 202; 46: S19-S40. Current interpretive data was last revised 2022. Calcium 9.3 8.5 - 10.3 mg/dL [facility] Bilirubin, total 0.4 0.1 - 1.2 mg/dL [facility] Protein, pl 7.0 6.5 - 8.5 g/dL [facility] Albumin 4.3 3.5 - 5.0 g/dL [facility] Alk phos 90 40 - 130 Units/L [facility] ALT 23 7 - 55 Units/L [facility] AST 27 10 - 50 Units/L [facility] Blood 04/25/2024 1:38 PM FUNDRAISING OFFICER 04/25/2024 3:58 PM FUNDRAISING OFFICER Farida Serrano MD LAB BLOOD ORDERABLES Final Result [facility] [address] Department [place] [address] from Last 3 Months Insurance ANTHEM ACCESS ANTHEM ACCESS CHOICE Care Teams Trim Setter Relationship Specialty Start Date End Date Alphonso Echols MD PCP - General Internal Medicine 05/29/17
--- OUTSIDE RECORDS SUMMARY | 2024-05-02 09:29 | XMS_ITS | CONTINUITY OF CARE DOCUMENT ---
Author Name seema bernardolaurie Address Unknown Organization [facility] Address [address] [place] [address] Phone [phone] Care Team Providers Care Cath Lab Radiology Technician Name Role Phone Lalo SOLIMAN, Lakshmi Unavailable Alphonso Echols MD Unavailable Alphonso Echols MD Unavailable PROBLEMS Condition Status Date Provider Notes Vitamin D deficiency active Tayo Zamudio Sick sinus syndrome active Jaimie Lawrence DIABETES MELLITUS active Lakshmi May MD HX OF CHEST PAIN-NL CORS ON CATH 05/15 active Lakshmi May MD HTN ESSENTIAL--echo ef nl, 03/2024 active Davie Finneymedzai OBESITY active Lakshmi May MD FAMILY HX HEART DISEASE active Lakshmi May MD ABDOMINAL PAIN completed - Tayo Zee MD LEG PAIN completed - Tayo Zee MD ABNORMAL ELECTROCARDIOGRAM COMPLETE HEART BLOCK completed - Tayo Zee MD SICK SINUS SYNDROME S/P PACEMAKER BIOTRONIC;RV PACES 100% completed - Lakshmi May MD Echo nl lv fn , mild LAE, NO LVH, no valve issues 08/08 SLEEP APNEA;ON CPAP active Tayo Zee MD COPD active Tayo Zee MD Dyspnea on exertion;mild to mod obst on pfts active Lakshmi May MD Tobacco use, quit active Tayo Zee MD Hypercholesterolemia completed - Lakshmi May MD RHEUMATOID ARTHRITIS active Tayo Zamudio Hyperlipidemia active Lakshmi May MD s/p biotronic pacemaker/Gen. change Biotronik PM 11/04/19 ( NOT MRI SAFE) active Hanna Shields Fatigue, chronic active Lakshmi May MD Cardiology examination active Davie Peralta ENCOUNTERS Date Type Provider Location Encounter Diag nosis - In-person encounter Office Visit Lakshmi May MD [place] [facility] HTN ESSENTIAL--echo ef nl, ardiology examination - In-person encounter Office Visit Lakshmi May MD [place] [facility] - In-person encounter Office Visit Lakshmi May MD [place] [facility] - In-person encounter Office Visit Lakshmi May MD [place] [facility] - In-person encounter Office Visit Lakshmi May MD [place] [facility] - In-person encounter Office Visit Lakshmi May MD [facility] - In-person encounter Office Visit Lakshmi May MD [place] [facility] - In-person encounter Office Visit Lakshmi May MD [facility] HTN ESSENTIAL--echo ef nl, 03/2024 - In-person encounter Office Visit Lakshmi May MD [place] [facility] - In-person encounter Office Visit Genaro Fernandez MD [place] [facility] - In-person encounter Office Visit Lakshmi May MD [place] [facility] - In-person encounter Office Visit Lakshmi May MD [place] [facility] - In-person encounter Office Visit Lakshmi May MD [place] [facility] - In-person encounter Office Visit Lakshmi May MD [place] [facility] Fatigue, chronic - In-person encounter Office Visit Lakshmi May MD [facility] - In-person encounter Office Visit Lakshmi May MD [facility] - In-person encounter Office Visit Lakshmi May MD [facility] SICK SINUS SYNDROME S/P PACEMAKER BIOTRONIC;RV PACES 100%HypercholesterolemiaHyperl ipidemias/p biotronic pacemaker/Gen. change Biotronik PM 11/04/19 ( NOT MRI SAFE) - In-person encounter Office Visit Tayo Zee MD [place] [facility] RHEUMATOID ARTHRITIS - In-person encounter Office Visit Lakshmi May MD [place] [facility] - In-person encounter Office Visit Lakshmi May MD [place] [facility] - In-person encounter Office Visit Lakshmi May MD [place] [facility] - In-person encounter Office Visit Tayo Zee MD [place] [facility] HX OF CHEST PAIN-NL CORS ON CATH N ESSENTIAL--echo ef nl, BDOMINAL PAINLEG PAINABNORMAL ELECTROCARDIOGRAM COMPLETE HEART BLOCKSICK SINUS SYNDROME S/P PACEMAKER BIOTRONIC;RV PACES 100%SLEEP APNEA;ON CPAPCOPDDyspnea on exertion;mild to mod obst on pftsTobacco use, quitHypercholesterolemia - In-person encounter Office Visit Lakshmi May MD [place] [facility] - In-person encounter Office Visit Lakshmi May MD [facility] - In-person encounter Office Visit Lakshmi May MD [facility] - In-person encounter Office Visit Lakshmi May MD [place] [facility] HX OF CHEST PAIN-NL CORS ON CATH 05/15SICK SINUS SYNDROME S/P PACEMAKER BIOTRONIC;RV PACES 100% - In-person encounter Office Visit Lakshmi May MD [place] [facility] DIABETES MELLITUSHX OF CHEST PAIN-NL CORS ON CATH 05/15HTN ESSENTIAL--echo ef nl, 03/2024OBESITYFAMILY HX HEART DISEASE VITAL SIGNS Date Observation Value Provider Body Mass Index (Ratio) 39.38 kg/m2 [facility] blood pressure, diastolic 79 mm[Hg[facility], systolic 165 mm[Hg] [facility], oximetry 98 % [facility] pulse rate 72 /min [facility] respiratory rate E&M 12 /min [facility] weight E&M 244 [lb_av] [facility] height E&M 66 [in_i] [facility] blood pressure, cuff size regular [facility] Body Mass Index (Ratio) 37.12 kg/m2 Deandre May MD pulse rate 78 /min Celina Polo blood pressure, cuff size regular Ta bitevens Polo blood pressure, diastolic 82 mm[Hg] Ta bitha Polo blood pressure, systolic 148 mm[Hg] Tab itha Polo weight E&M 230 [lb_av] Celina Polo respiratory rate E&M 12 /min Celina Polo height E&M 66 [in_i] Celina Polo Body Mass Index (Ratio) 39.06 kg/m2 [facility] blood pressure, diastolic 67 mm[Hg] Li nkLogic blood pressure, systolic 134 mm[Hg] Carol kLogic blood pressure, cuff size regular Dennis marychuy [place] blood pressure, diastolic 67 mm[Hg] Fa marychuy [place] blood pressure, systolic 134 mm[Hg] Armando amaya [place] oxygen saturation, oximetry 95 % [facility] respiratory rate E&M 16 /min Tisha Mccarty iller pulse rate 75 /min [facility] weight E&M 242 [lb_av] [facility] height E&M 66 [in_i] [facility] Body Mass Index (Ratio) 37.44 kg/m2 Deandre aMy MD oxygen saturation, oximetry 97 % [facility] pulse rate 75 /min [facility] blood pressure, diastolic 76 mm[Hg] [facility] blood pressure, systolic 169 mm[Hg] [facility] weight E&M 232 [lb_av] [facility] blood pressure, cuff size large An alexsandra Vance height E&M 66 [in_i] Preethi Vance Body Mass Index (Ratio) 39.22 kg/m2 Deandre May MD blood pressure, diastolic 83 mm[Hg] Ke rri Edd blood pressure, systolic 164 mm[Hg] Jennifer ri Edd blood pressure, cuff size large Ke rri Edd oxygen saturation, oximetry 97 % Gabby Edd respiratory rate E&M 16 /min Gabby G isiahenejohn pulse rate 69 /min Gabby Jeremy [facility] weight E&M 243 [lb_av] Gabby Edwinanenfe ld height E&M 66 [in_i] Gabby Chidiuenenfe [facility] Body Mass Index (Ratio) 38.25 kg/m2 Davie Peralta pulse rate 75 /min Lizet Urena blood pressure, diastolic 62 mm[Hg] Te ri Urena blood pressure, systolic 144 mm[Hg] Ter i Urena oxygen saturation, oximetry 98 % Lizet Urena respiratory rate E&M 14 /min [facility]et St[facility] weight E&M 237 [lb_av] Lizet Urena Body Mass Index (Ratio) 38.09 kg/m2 Deandre May MD blood pressure, diastolic 75 mm[Hg] Li nkLogic blood pressure, systolic 166 mm[Hg] Carol kLogic blood pressure, cuff size regular Ca therine [place] blood pressure, diastolic 75 mm[Hg] Ca therine Rolando blood pressure, systolic 166 mm[Hg] Cat herine Rolando oxygen saturation, oximetry 98 % Jaclyn [place] respiratory rate E&M 18 /min Catheri ne Rolando pulse rate 89 /min Jaclyn Rolando weight E&M 236 [lb_av] Jaclyn Rolando height E&M 66 [in_i] Jaclyn Rolando Body Mass Index (Ratio) 39.06 kg/m2 Prosper Yaoty blood pressure, cuff size large Ke rri Gruenenfelder blood pressure, diastolic 70 mm[Hg] Ke rri Gruenenfelder blood pressure, systolic 168 mm[Hg] Ker ri Edwinanenfbradener oxygen saturation, oximetry 98 % Gabby Jamaalnfbradener respiratory rate E&M 16 /min Gabby G khadar pulse rate 76 /min Gabby Edwinanechase lder weight E&M 242 [lb_av] Gabby Gruenenfe lder height E&M 66 [in_i] Gabby Luna er Body Mass Index (Ratio) 38.25 kg/m2 Urban Fernandez MD blood pressure, diastolic 60 mm[Hg] Deya Ferreira Rowe blood pressure, systolic 122 mm[Hg] Melinda Rowe oxygen saturation, oximetry 97 % Larry Rowe respiratory rate E&M 18 /min Jason Rowe pulse rate 84 /min Larry Santana nson weight E&M 237 [lb_av] Larry melissaon height E&M 66 [in_i] Larry Santana nson Body Mass Index (Ratio) 39.06 kg/m2 Deandre May MD blood pressure, cuff size large Deya juarez Sydni blood pressure, diastolic 70 mm[Hg] Deya juarez Sydni blood pressure, systolic 122 mm[Hg] Kisha hardy Sydni oxygen saturation, oximetry 98 % Himanshu Sydni respiratory rate E&M 18 /min Himanshu Sydni pulse rate 83 /min Himanshu Sydni weight E&M 242 [lb_av] Himanshu Sydni height E&M 66 [in_i] Himanshu Sydni Body Mass Index (Ratio) 39.06 kg/m2 Deandre May MD blood pressure, cuff size regular Kr isty [place] blood pressure, diastolic 70 mm[Hg] Kr isty Joanna blood pressure, systolic 140 mm[Hg] Sonia Marshall pulse rate 92 /min Tessa Joanna oxygen saturation, oximetry 98 % Tessa Joanna respiratory rate E&M 17 /min Tessa Joanna weight E&M 242 [lb_av] Tessa Joanna height E&M 66 [in_i] Tessa Joanna Body Mass Index (Ratio) 39.22 kg/m2 Deandre May MD blood pressure, diastolic 80 mm[Hg] Da kevin Madan blood pressure, systolic 122 mm[Hg] Dac ia Madan oxygen saturation, oximetry 98 % Aidee Madan respiratory rate E&M 16 /min Aidee V oss pulse rate 94 /min Aidee Madan weight E&M 243 [lb_av] Aidee Madan height E&M 66 [in_i] Aidee Madan Body Mass Index (Ratio) 40.02 kg/m2 Deandre May MD blood pressure, diastolic 62 mm[Hg] astity Marcos blood pressure, systolic 142 mm[Hg] Sheeba stity Marcos oxygen saturation, oximetry 96 % [facility] E&M 16 /min Chastit y Marcos pulse rate 77 /min Chastity Marcos weight E&M 248 [lb_av] [facility] Marcos height E&M 66 [in_i] [facility] Marcos Body Mass Index (Ratio) 40.19 kg/m2 Deandre May MD blood pressure, diastolic 68 mm[Hg] Ma rsha O'Augustin blood pressure, systolic 122 mm[Hg] Mar tari O'Augustin oxygen saturation, oximetry 97 % Claudia O'Augutsin respiratory rate E&M 16 /min Claudia O'Augustin pulse rate 96 /min Claudia O'Augustin weight E&M 249 [lb_av] Claudia O'Augustin blood pressure, resting Yes Linton horner O'Augustin height E&M 66 [in_i] Claudia O'Augustin Body Mass Index (Ratio) 40.35 kg/m2 Deandre May MD pulse rate 93 /min Lisa Watt respiratory rate E&M 20 /min Lisa Watt oxygen saturation, oximetry 98 % Lisa Watt blood pressure, diastolic 80 mm[Hg] Ashvin Watt blood pressure, systolic 124 mm[Hg] Jhonny Watt blood pressure, cuff size large Ashvin Watt weight E&M 250 [lb_av] Lisa Watt height E&M 66 [in_i] Lisa Awtt Body Mass Index (Ratio) 40.99 kg/m2 Deandre May MD blood pressure, cuff size regular Ashvin Watt blood pressure, diastolic 70 mm[Hg] Ashvin Watt blood pressure, systolic 144 mm[Hg] Jhonny Watt oxygen saturation, oximetry 99 % Lisa Watt respiratory rate E&M 22 /min Lisa Watt pulse rate 84 /min Lisa Watt weight E&M 254 [lb_av] Lisa Watt height E&M 66 [in_i] Lisa Watt blood pressure, diastolic 80 mm[Hg] Richard Puga blood pressure, systolic 142 mm[Hg] Jennifer Puga pulse rate 85 /min Gabby rodriguezer oxygen saturation, oximetry 97 % Gabby Puga respiratory rate E&M 16 /min Gabby rubalcava Body Mass Index (Ratio) 40.67 kg/m2 Luis Carlos Puga weight E&M 252 [lb_av] Gabby Luna lder blood pressure, diastolic 74 mm[Hg] Deya Rowe blood pressure, systolic 130 mm[Hg] Melinda Rowe pulse rate 80 /min Larry araya oxygen saturation, oximetry 98 % Larry Rowe respiratory rate E&M 16 /min Jason Rowe Body Mass Index (Ratio) 39.73 kg/m2 Arlen Rowe weight E&M 246.2 [lb_av] Larry ruiz blood pressure, diastolic 77 mm[Hg] Me wendy Marcum blood pressure, systolic 145 mm[Hg] Portia jose Marcum pulse rate 84 /min Chelo Marcum oxygen saturation, oximetry 98 % Chelo Marcum respiratory rate E&M 14 /min Chelo Marcum Body Mass Index (Ratio) 39.86 kg/m2 [facility] ssa Marcum weight E&M 247 [lb_av] Chelo Marcum Body Mass Index (Ratio) 39.70 kg/m2 [facility] ssa Marcum blood pressure, diastolic 80 mm[Hg] Me wendy Marcum blood pressure, systolic 176 mm[Hg] Portia jose Marcum pulse rate 83 /min Chelo Marcum oxygen saturation, oximetry 98 % Chelo Marcum respiratory rate E&M 14 /min Chelo Marcum weight E&M 246 [lb_av] Chelo Marcum Body Mass Index (Ratio) 39.06 kg/m2 Anea armani Brown blood pressure, diastolic 75 mm[Hg] An eatris Brown blood pressure, systolic 134 mm[Hg] Ane atris Brown pulse rate 76 /min Aneatris Brown oxygen saturation, oximetry 98 % Aneatris Brown respiratory rate E&M 17 /min Aneatri s Brown weight E&M 242 [lb_av] Aneatris Brown blood pressure, diastolic 84 mm[Hg] Me wendy Marcum blood pressure, systolic 194 mm[Hg] Portia jose Marcum Body Mass Index (Ratio) 39.54 kg/m2 Alaina glynn Marcum pulse rate 78 /min Chelo Marcum oxygen saturation, oximetry 98 % Chelo Marcum respiratory rate E&M 14 /min Chelo Kim weight E&M 245 [lb_av] Chelo Marcum Body Mass Index (Ratio) 40.98 kg/m2 Liza Williamoney blood pressure, diastolic 72 mm[Hg] Na luisa Williamoney blood pressure, systolic 137 mm[Hg] Karly zuri Jaquez pulse rate 91 /min Vanessa Jaquez oxygen saturation, oximetry 97 % Vanessa Williamoney respiratory rate E&M 18 /min Vanessa Jaquez weight E&M 253 [lb_av] Vanessa Williamoney blood pressure, diastolic 74 mm[Hg] Ch erese Patrick blood pressure, systolic 132 mm[Hg] Justine kirill Patrick pulse rate 78 /min Lynne Patrick oxygen saturation, oximetry 97 % Lynne Patrick respiratory rate E&M 17 /min Lynne Patrick weight E&M 238 [lb_av] Lynne Patrick Body Mass Index (Ratio) 37.58 kg/m2 Alan Schmitz blood pressure, diastolic, left arm 70 mm [Hg] Melba Schmitz blood pressure, systolic, left arm 138 mm [Hg] Melba Schmitz blood pressure, diastolic, right arm 70 m m[Hg] Melba Schmitz blood pressure, systolic, right arm 124 m m[Hg] Melba Schmitz blood pressure, diastolic 70 mm[Hg] Collins blood pressure, systolic 138 mm[Hg] Rio Schmitz pulse rate 75 /min Melba Schmitz oxygen saturation, oximetry 98 % Melba Schmitz respiratory rate E&M 16 /min Melba Schmitz weight E&M 232 [lb_av] Melba Schmitz blood pressure, diastolic 60 mm[Hg] Héctor elaine Young RN blood pressure, systolic 150 mm[Hg] Matthew Hernandezjemma GORDON pulse rate 33 /min Matthew Hernandezjemma GORDON oxygen saturation, oximetry 98 % Matthew Hernandezjemma GORDON respiratory rate E&M 18 /min Matthew malone RN weight E&M 232 [lb_av] Matthew Hector GORDON height E&M 66 [in_i] Matthew Young RN ALLERGIES No Known Drug Allergies RESULTS Date Observation Value Provider Reference Range Interpretation Location activated partial thromboplastin time (aPTT) 23 s [facility] 24-33 Low prothrombin time (patient) 9.7 s [facility] 9.1-12.0 international normalized ratio (INR) 0.9 [facility] 0.8-1.2 bacteria, urine microscopy None seen [facility] None seen/Few epithelial cells, urine 0-10 [facility] 0 - 10 RBC, Urine 0-2 /hpf [facility] 0 - 2 WBC urine on microscopy 0-5 /hpf [facility] 0 - 5 urinalysis, microscopic examination See report [facility] nitrate, urine Negative [facility] Negative urobilinogen, urine, semiquantitative (dipstick) 0.2 [facility] 0.2-1.0 bilirubin, urine Negative [facility] Negative hemoglobin, urine, by dipstick Negative [facility] Negative ketones, urine, by test strip Negative [facility] Negative glucose, urine 3+ [facility] Negative Abnormal protein, urine, semiquantitative (dipstick) Negative [facility] Negative/Tra ce leukocyte esterase, urine, by dipstick Negative [facility] Negative appearance, urine Clear [facility] Clear urine color Yellow [facility] Yellow pH, urine, semiquantitative 5.5 [facility] 5.0-7.5 specific gravity, body fluid >=1.030 [facility] 1.005-1.030 Abnormal basophil count, absolute 0.0 x10E3/uL [facility] 0.0-0.2 Eosinophil Absolute Count 0.2 X10E3/UL [facility] 0.0-0.4 monocyte count, blood, automated 1.0 X10E3/UL [facility] 0.1-0.9 High lymphocyte count, blood, automated 1.3 X10E3/UL [facility] 0.7-3.1 Absolute Neutrophils 10.1 X10E3/UL [facility] 1.4-7.0 High basophils as percent of blood leukocytes 0 % [facility] Not Estab. eosinophils as percent of blood leukocytes 2 % [facility] Not Estab. monocytes as percent of blood leukocytes 8 % [facility] Not Estab. lymphocytes as percent of blood leukocytes 10 % [facility] Not Estab. neutrophils as percent of blood leukocytes 79 % [facility] Not Estab. platelet count 254 X10E3/UL [facility] 391-288 2862/08 /06 red blood cell distribution width 12.8 % [facility] 11.6-15.4 mean corpuscular hemoglobin concentration, RBC 33.1 G/DL [facility] 31.5-35.7 mean corpuscular hemoglobin, RBC 34.3 pg [facility] 26.6-33.0 High mean corpuscular volume, RBC 104 fL [facility] 79-97 High hematocrit, blood 43.8 % [facility] 37.5-51.0 hemoglobin, blood 14.5 g/dL [facility] 13.0-17.7 erythrocyte (RBC) count 4.23 X10E6/UL [facility] 4.14-5.80 leukocyte count, blood 12.7 X10E3/UL [facility] 3.4-10.8 High alanine aminotransferase (SGPT), serum 28 1/L [facility] 0-44 aspartate aminotransferase (SGOT), serum 18 1/L [facility] 0-40 alkaline phosphatase, serum 113 1/L [facility] 39-117 bilirubin, serum, total 0.5 mg/dL [facility] 0.0-1.2 albumin/globulin ratio, serum 2.0 [facility] 1.2-2.2 globulin, serum 2.2 [facility] 1.5-4.5 albumin, serum 4.4 g/dL [facility] 3.8-4.9 protein, total, serum 6.6 g/dL [facility] 6.0-8.5 calcium, serum 9.3 mg/dL [facility] 8.7-10.2 carbon dioxide, venous blood 28 mmol/L [facility] 20-29 chloride, serum 99 mmol/L [facility] 96-106 potassium, serum 5.7 mmol/L [facility] 3.5-5.2 High sodium, serum 138 mmol/L [facility] 434-387 5034/08 /06 urea nitrogen/creatinine ratio, serum 19 [facility] 9-20 eGFR if 88 mL/min/{1.7 3_m2} [facility] >59 eGFR if not 76 mL/min/{1.7 3_m2} [facility] >59 creatinine, serum 1.06 mg/dL [facility] 0.76-1.27 urea nitrogen, blood 20 mg/dL [facility] 6-24 blood glucose, random 281 mg/dL [facility] 65-99 High ferritin, serum 57 ng/mL [facility] 30-400 thyroid stimulating hormone, serum 3.570 u[IU]/mL [facility] 0.450-4.500 iron saturation percent, serum 13 % [facility] 15-55 Low iron, serum 51 ug/dL [facility] 38-169 iron binding capacity, unsaturated 337 ug/dL [facility] [phone]/01 /10 iron binding capacity, total 388 ug/dL [facility] 149-840 7852/01 /10 basophil count, absolute 0.0 x10E3/uL [facility] 0.0-0.2 Eosinophil Absolute Count 0.3 X10E3/UL [facility] 0.0-0.4 monocyte count, blood, automated 0.9 X10E3/UL [facility] 0.1-0.9 lymphocyte count, blood, automated 1.8 X10E3/UL [facility] 0.7-3.1 Absolute Neutrophils 8.0 X10E3/UL [facility] 1.4-7.0 High basophils as percent of blood leukocytes 0 % [facility] Not Estab. eosinophils as percent of blood leukocytes 3 % [facility] Not Estab. monocytes as percent of blood leukocytes 8 % [facility] Not Estab. lymphocytes as percent of blood leukocytes 16 % [facility] Not Estab. neutrophils as percent of blood leukocytes 73 % [facility] Not Estab. platelet count 252 X10E3/UL [facility] [phone]/01 /10 red blood cell distribution width 14.3 % [facility] 12.3-15.4 mean corpuscular hemoglobin concentration, RBC 33.0 G/DL [facility] 31.5-35.7 mean corpuscular hemoglobin, RBC 32.6 pg [facility] 26.6-33.0 mean corpuscular volume, RBC 99 fL [facility] 79-97 High hematocrit, blood 38.8 % [facility] 37.5-51.0 hemoglobin, blood 12.8 g/dL [facility] 13.0-17.7 Low erythrocyte (RBC) count 3.93 X10E6/UL [facility] 4.14-5.80 Low leukocyte count, blood 11.1 X10E3/UL [facility] 3.4-10.8 High alanine aminotransferase (SGPT), serum 23 1/L [facility] 0-44 aspartate aminotransferase (SGOT), serum 25 1/L [facility] 0-40 alkaline phosphatase, serum 87 1/L [facility] 39-117 bilirubin, serum, total 0.4 mg/dL [facility] 0.0-1.2 albumin/globulin ratio, serum 1.8 [facility] 1.2-2.2 globulin, serum 2.4 [facility] 1.5-4.5 albumin, serum 4.4 g/dL [facility] 3.5-5.5 protein, total, serum 6.8 g/dL [facility] 6.0-8.5 calcium, serum 9.0 mg/dL [facility] 8.7-10.2 carbon dioxide, venous blood 24 mmol/L [facility] 20-29 chloride, serum 102 mmol/L [facility] 96-106 potassium, serum 4.0 mmol/L [facility] 3.5-5.2 sodium, serum 140 mmol/L [facility] [phone]/01 /10 urea nitrogen/creatinine ratio, serum 23 [facility] 9-20 High eGFR if 126 mL/min/{1.7 3_m2} [facility] >59 eGFR if not 109 mL/min/{1.7 3_m2} [facility] >59 creatinine, serum 0.62 mg/dL [facility] 0.76-1.27 Low urea nitrogen, blood 14 mg/dL [facility] 6-24 blood glucose, random 75 mg/dL [facility] 65-99 pro brain natriuretic peptide 22.5 pg/mL [facility] 0.0 - 125.0 very low density lipoproteins 36.2 mg/dL [facility] 5.0 - 40.0 LDL/HDL (low-density lipoprotein/high-de nsity lipoprotein) ratio 1.5 [facility], beta, serum, point, quantitative, calculated 75.8 (?) [facility] 0.0 - 100.0 HDL cholesterol, serum 52.0 mg/dL [facility] 35.0 - 55.0 cholesterol, serum 164.0 mg/dL [facility] 0.0 - 200.0 triglyceride, serum, fasting 181.0 mg/dL [facility] 0.0 - 150.0 High hemoglobin A1C, blood, as % of total hemoglobin 11.4 % [facility] 4.0 - 5.6 [facility] platelet count 181 10*3/mm3 [facility] hematocrit, blood 35.8 % [facility] lipoprotein, beta, serum, point, quantitative, calculated 52 mg/dL [facility] cholesterol, serum 104 mg/dL [facility] international normalized ratio (INR) 1.0 [facility] thyroid stimulating hormone, serum 3.700 u[IU]/mL [facility] B-type natriuretic peptide 308 pg/mL [facility] alanine aminotransferase (SGPT), serum 64 1/L [facility] aspartate aminotransferase (SGOT), serum 49 1/L [facility] creatinine, serum 0.70 mg/dL [facility] potassium, serum 4.9 mmol/L [facility] sodium, serum 139 mmol/L [facility] HISTORY OF MEDICATION USE Medication Status Instructions Dates Provider Indications Com geoffs Frances 2.5 mg/0.5 mL pen injector active Davie Ahmedzai Humulin R U-500 (Conc) Kwikpen 500 unit/mL (3 mL) insulin pen active Davie Ahmedzai Ozempic 2 mg/dose (8 mg/3 mL) pen injector completed - Davie Ahmedzai ranolazine 500 mg tablet extended release 12 hr active Take 1 tablet by mouth twice daily Gabby Puga Trulicity 4.5 mg/0.5 mL pen injector completed - Eve Mack Tresiba FlexTouch U-200 200 unit/mL (3 mL) insulin pen active Davie Finneymedzai Jardiance 25 mg tablet active Davie Sharminmedzai rosuvastatin 40 mg tablet active Take 1 tablet by mouth once a day Davie Ahmedzai ezetimibe 10 mg tablet active Davie Ahmedzai tramadol 50 mg tablet completed 1 tablet by mouth every six hours as needed - Genaro Fernandez MD CEPHALEXIN 500 MG ORAL CAPSULE completed 1 po tid x 5 days - Larry Rowe Trulicity 1.5 mg/0.5 mL pen injector completed subcutaneously once a day - Davie Ahmedzai Jardiance 10 mg tablet completed 1 tablet by mouth once a day - Davie Ahmedzai Ranexa 500 mg tablet extended release 12 hr completed 1 tablet by mouth twice a day - Vickie STORYEMPRYAN 1 MG/DOSE SUBCUTANEOUS SOLUTION PEN-INJECTOR completed 1 unit every monday - Himanshu Sydni Tresiba FlexTouch U-100 100 unit/mL (3 mL) insulin pen completed 100 unit subcutaneously once a day - Letha Rodríguez meloxicam 7.5 mg tablet active 1 tablet by mouth once a day Lakshmi May MD methotrexate sodium 2.5 mg tablet active 7 tablet by mouth once a week Gabby Puga IBUPROFEN 800 MG ORAL TABLET completed as needed - Lakshmi May MD cholecalciferol (vitamin D3) 1,250 mcg (50,000 unit) capsule active 1 once a week Tayo Zee MD LET HIM KNOW HIS VIT D IS LOW AND SUGAR IT TOO HIGH QSYMIA 7.5-46 MG ORAL CAPSULE EXTENDED RELEASE 24 HOUR completed one tablet daily - Lakshmi May MD QSYMIA 3.75-23 MG ORAL CAPSULE EXTENDED RELEASE 24 HOUR completed one tablet daily - Lakshmi MCMAHAN PEN-INJECTOR completed once aweek - Chastity Marcos Hyzaar 100-25 mg tablet active tablet by mouth once a day Lakshmi May MD HUMALOG MIX 50/50 SUSPENSION completed 35 units in AM, 40 in PM - Chastity Marcos Norvasc 10 mg tablet active 1 tablet by mouth once a day Jaclyn Marshall ProAir HFA 90 mcg/actuation HFA aerosol inhaler active 2 puff every four to six hours Lakshmi May MD GLYBURIDE 5 MG ORAL TABLET completed 2 tabs twice daily - Larry Rowe metformin 1,000 mg tablet active tablet by mouth twice a day Jaclyn Marshall aspirin 325 mg tablet active Take 1 tablet by mouth once a day Elsa Gonzlaez RN METOPROLOL TARTRATE 25 MG ORAL TABLET completed one tablet twice daily - Lakshmi May MD folic acid 1 mg tablet active tablet by mouth once a day Matthew Young RN ACTOS 45 MG ORAL TABLET completed daily - Larry Rowe METHOTREXATE 2.5 MG ORAL TABLET completed 7 tabs on Mon - Lisa Watt LISINOPRIL-HYDROC HLOROTHIAZIDE 20-25 MG ORAL TABLET completed po daily - Lakshmi May MD GLYBURIDE-METFORM IN 2.5-500 MG ORAL TABLET completed 2 in am and pm - Lynne Patrick simvastatin 40 mg tablet completed tablet by mouth once a day - Tayo eZe MD JANUVIA 100 MG ORAL TABLET completed 1 tab daily - Gabby Puga SOCIAL HISTORY Date Observation Value Provider drug use none Davie Peralta alcohol use, average drinks per day yes Davie Peralta alcohol use, type beer Davie bocanegra alcohol use yes Davie Peralta passive cigarette sm josselyn exposure no Davie Peralta chewing tobacco use Former Davie martinez smoking status Former smoker Davie Cruz i drug use none Davie Peralta alcohol use, average drinks per day yes Davie Peralta alcohol use, type beer Davie bocanegra alcohol use yes Davie Peralta passive cigarette sm josselyn exposure no Davie Peralta chewing tobacco use Former Davie martinez smoking status Former smoker Davie Cruz i drug use none [facility] alcohol use, average drinks per day yes [facility] alcohol use, type beer [facility] alcohol use yes [facility] passive cigarette sm josselyn exposure no [facility] chewing tobacco use Former [facility] ller smoking status Former smoker [facility] social history E&M Marital Statu s: Radha marin: 2 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 Davie Peralta social history reviewed E&M revi ewed - no changes required Davie Chancezaceci alcohol use yes Lizet Urena chewing tobacco use Former Lizet schneider smoking status Former smoker Lizet Urena physical exercise, f requency, days per week some Jaclyn Rolando caffeine use, averag e drinks per day yes Jaclyn Rolando passive cigarette sm josselyn exposure no Jaclyn [place] smoking status Former smoker Jaclyn Ot is social history reviewed E&M revi ewed - no changes required Davie Chancezaceci social history reviewed E&M revi ewed - no changes required Davie Finneymedzai In the past 3 months , has anyone annoyed you by telling you to cut down or stop using drugs? 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 Genaro Fernandez MD pacemaker surgery, hx of yes Preston Fernandez MD physical exercise, f requency, days per week some Larry Rowe caffeine use, averag e drinks per day yes Larry Rowe passive cigarette sm josselyn exposure no Larry Rowe smoking status Former smoker Larry St munoz social history reviewed E&M revi ewed - no changes required Patrick Tan physical exercise, f requency, days per week some Himanshu Sydni caffeine use, averag e drinks per day yes Himanshu Sydni passive cigarette sm josselyn exposure no Himanshu Sydni smoking status Former smoker Himanshu Armasyyu m social history E&M Marital Statu s: Smoking History: Priscilla rueda is a former smoker. Lakshmi May MD social history reviewed E&M revi ewed - no changes required Lakshmi May MD physical exercise, f requency, days per week some Tessa Marshall caffeine use, averag e drinks per day yes Tessa Marshall passive cigarette sm josselyn exposure no Tsesa Marshall smoking status Former smoker Tessa Marshall social history E&M Marital Statu s: Smoking History: Priscilla rueda is a former smoker. Lakshmi May MD social history reviewed E&M revi ewed - no changes required Lakshmi May MD physical exercise, f requency, days per week some Aidee Madan alcohol counseling no Aidee Satya s In the past 3 months , has anyone annoyed you by telling you to cut down or stop using drugs? (CAGE substance use question #2) N Aidee Madan In the past 3 months , have you felt you should cut down or stop using drugs?(CAGE substance use question #1) N Aidee Madan alcohol use, average drinks per day yes Aidee Madan alcohol use, type beer Aidee Madan alcohol use yes Aidee Madan caffeine use, averag e drinks per day yes Aidee Madan drug use none Aidee Madan passive cigarette sm josselyn exposure no Aidee Madan smoking status Former smoker Lakshmi May MD smoking status Former smoker Lakshmi May MD social history reviewed E&M revi ewed - no changes required Lakshmi May MD physical exercise, f requency, days per week some Chastity Marcos alcohol counseling no Chastity Marcos In the past 3 months , has anyone annoyed you by telling you to cut down or stop using drugs? (CAGE substance use question #2) N Chastity Marcos In the past 3 months , have you felt you should cut down or stop using drugs?(CAGE substance use question #1) N Chastity Marcos alcohol use, average drinks per day yes Chastity Marcos alcohol use, type beer Chastity H ogue alcohol use yes Chastity Marcos caffeine use, averag e drinks per day yes Chastity Marcos drug use none Chastity Marcos passive cigarette sm josselyn exposure no Chastity Marcos number of grandchildren Lakshmi May MD T matt May MD social history reviewed E&M revi ewed - no changes required Lakshmi May MD smoking status Former smoker Claudia Primitivo recinos social history reviewed E&M revi ewed - no changes required Lakshmi May MD social history reviewed E&M revi ewed - no changes required Lakshmi May MD quit smoking, stage quit Tayo spears MD social history E&M Marital Statu s: Smoking History: Priscilla rueda is a former smoker. Tayo Zee MD social history reviewed E&M revi ewed - no changes required Tayo Zee MD physical exercise, f requency, days per week some Gabby Puga alcohol counseling no Gabby llanos In the past 3 months , has anyone annoyed you by telling you to cut down or stop using drugs? (CAGE substance use question #2) N Gabby Puga In the past 3 months , have you felt you should cut down or stop using drugs?(CAGE substance use question #1) N Gabby Puga alcohol use, average drinks per day yes Gabby Puga alcohol use, type beer Gabby pierson alcohol use yes Gabby fierro caffeine use, averag e drinks per day yes Gabby Puga drug use none Gabby rodriguezer passive cigarette sm josselyn exposure no Gabby Puga smoking status Former smoker Gabby Hinton [facility] social history reviewed E&M revi ewed - no changes required Lakshmi May MD physical exercise, f requency, days per week some Larry Rowe alcohol counseling no Larry Rowe In the past 3 months , has anyone annoyed you by telling you to cut down or stop using drugs? (CAGE substance use question #2) N Larry Rowe In the past 3 months , have you felt you should cut down or stop using drugs?(CAGE substance use question #1) N Larry Rowe alcohol use, average drinks per day yes Larry Rowe alcohol use, type beer Larry Rowe alcohol use yes Larry araya caffeine use, averag e drinks per day yes Larry Rowe drug use none Larry araya passive cigarette sm josselyn exposure no Larry Rowe smoking status Former smoker Larry Chu social history reviewed E&M revi ewed - no changes required Lakshmi May MD physical exercise, f requency, days per week some Chelo Marcum alcohol counseling no Cheol Han In the past 3 months , has anyone annoyed you by telling you to cut down or stop using drugs? (CAGE substance use question #2) N Chelo Marcum In the past 3 months , have you felt you should cut down or stop using drugs?(CAGE substance use question #1) N Chelo Marcum alcohol use, average drinks per day yes Chelo Marcum alcohol use, type beer Chelo Hi alcohol use yes Chelo Marcum caffeine use, averag e drinks per day yes Chelo Marcum drug use none Chelo Marcum passive cigarette sm josselyn exposure no Chelo Marcum smoking status Former smoker Chelo Ordonez nn social history reviewed E&M revi ewed - no changes required Lakshmi May MD physical exercise, f requency, days per week some Chelo Marcum alcohol counseling no Chelo Han In the past 3 months , has anyone annoyed you by telling you to cut down or stop using drugs? (CAGE substance use question #2) N Chelo Marcum In the past 3 months , have you felt you should cut down or stop using drugs?(CAGE substance use question #1) N Chelo Marcum alcohol use, average drinks per day yes Chelo Marcum alcohol use, type beer Chelo Hi caffeine use, averag e drinks per day yes Chelo Marcum drug use none Chelo Marcum passive cigarette sm josselyn exposure no Chelo Marcum smoking/tobacco cess ation, patient education and counseling yes Chelo Marcum smoking status Former smoker Chelo Ordonez luis alberto smoking/tobacco cess ation, patient education and counseling yes Tayo Zee MD quit smoking, stage quit Tayo spears MD social history reviewed E&M revi ewed - no changes required Tayo Zee MD smoking status Former smoker Pedrito Edin nunes social history reviewed E&M revi ewed - no changes required Lakshmi May MD physical exercise, f requency, days per week some Chelo Marcum alcohol counseling no Chelo Mccarty cCaluis alberto In the past 3 months , has anyone annoyed you by telling you to cut down or stop using drugs? (CAGE substance use question #2) N Chelo Marcum In the past 3 months , have you felt you should cut down or stop using drugs?(CAGE substance use question #1) N Chelo Marcum alcohol use, average drinks per day yes Chelo Marcum alcohol use, type beer Chelo Hi caffeine use, averag e drinks per day yes Chelo Kimann drug use none Chelo Kimann passive cigarette sm josselyn exposure no Chelo Marcum smoking status Former smoker Chelo Ordonez nn drug use none Lakshmi May MD social history reviewed E&M reviewed Lakshmi May MD social history reviewed E&M reviewed Matthew Young RN smoking history, tot al pack/year 12 Melba Schmitz alcohol counseling no Melba mckeon In the past 3 months , has anyone annoyed you by telling you to cut down or stop using drugs? (CAGE substance use question #2) N Melba Schmitz In the past 3 months , have you felt you should cut down or stop using drugs?(CAGE substance use question #1) N Melba Schmitz alcohol use, type beer Melba tavarez drug use no Melba Schmitz passive cigarette sm josselyn exposure no Melba Schmitz smoking, year quit 3 2008 Melba Schmitz smoking status former smoker Melba barcenas social history E&M Marital Status: Marrie d Lakshmi May MD physical exercise, f requency, days per week some Matthew Young RN drug use none Matthew Young RN caffeine use, averag e drinks per day yes Matthew Young RN alcohol use, average drinks per day yes Matthew Young RN smoking status Quit Matthew Young RN social history reviewed E&M reviewed Matthew Young RN MENTAL STATUS Date Observation Value Provider assessment of judgme nt and insight E&M Alert and oriented to time, place and person. Mood and affect are normal. Lakshmi May MD assessment of judgme nt and insight E&M Alert and oriented to time, place and person. Mood and affect are normal. Matthew Young RN assessment of judgme nt and insight E&M Alert and oriented to time, place and person. Mood and affect are normal. Matthew Young RN FAMILY HISTORY Family Member Condition Mother Family History Unkno wn Father Negative FH of Coron keiry Artery Disease INSURANCE PROVIDERS Payer name Policy type / Coverage type [place] red constitution party ID [facility] [id number] ADVANCE DIRECTIVES Name Date DISCUSSED - NO DECISION MADE TREATMENT PLAN Date Name Performer [id number],S, Davie Ahmedza i [id number],S, Davie Ahmedza i [id number],S, Davie Ahmedza i [id number],S, Davie Ahmedza i [id number],S, Davie Ahmedza i [id number],S, Davie Ahmedza i [id number],S, Davie Ahmedza i [id number],S, Davie Ahmedza i [id number],S, Davie Ahmedza i [id number],S, Davie Ahmedza i [id number],S, Davie Ahmedza i [id number],S, Davie Ahmedza i [id number],S, Davie Ahmedza i [id number],S, Davie Ahmedza i Cardiology: H is updated medication list for this problem includes: Mounjaro 2.5 Mg/0.5 Ml Pen Injector (Tirzepatide) Humulin R U-500 (conc) Kwikpen 500 Unit/ml (3 Ml) Insulin Pen (Insulin regular hum u-500 conc) Aspirin 325 Mg Tablet (Aspirin) ..... Take 1 tablet by mouth once a day Ozempic 2 Mg/dose (8 Mg/3 Ml) Pen Injector (Semaglutide) Tresiba Flextouch U-200 200 Unit/ml (3 Ml) Insulin Pen (Insulin degludec) Jardiance 25 Mg Tablet (Empagliflozin) Metformin 1,000 Mg Tablet (Metformin) ..... Tablet by mouth twice a day Hyzaar 100-25 Mg Tablet (Losartan-hydrochlorothiazide) ..... Tablet by mouth once a day Lakshmi May MD Cardiology Lakshmi May MD Cardiology: H is updated medication list for this problem includes: Aspirin 325 Mg Tablet (Aspirin) ..... Take 1 tablet by mouth once a day Hyzaar 100-25 Mg Tablet (Losartan-hydrochlorothiazide) ..... Tablet by mouth once a day Norvasc 10 Mg Tablet (Amlodipine) ..... 1 tablet by mouth once a day T his visit has been a part of the consistent, comprehensive, and ongoing management of the chronic medical condition(s) listed above for the patient. Lakshmi May MD Cardiology Lakshmi May MD Cardiology Davie Peralta Cardiology Davie Peralta Cardiology Davie Peralta Cardiology: B P today: 148/82 P rior BP: 134/67 (03/14/2023) Labs Reviewed: C reat: 1.06 (10/31/2019) C hol: 164.0 (01/06/2016) HDL: 52.0 (01/06/2016) LDL: 75.8 (?) (01/06/2016) T.0 (01/06/2016) His updated medication list for this problem includes: Aspirin 325 Mg Tablet (Aspirin) ..... 1 tablet by mouth once a day Hyzaar 100-25 Mg Tablet (Losartan-hydrochlorothiazide) ..... Tablet by mouth once a day Norvasc 10 Mg Tablet (Amlodipine) ..... 1 tablet by mouth once a day Davie Peralta Cardiology Davie Peralta Cardiology Davie Peralta Cardiology Davie Ahmedzai Cardiology Davie Ahmedzai Cardiology Davie Ahmedzai Cardiology Davie Ahmedzai Cardiology Davie Ahmedzai Cardiology Davie Ahmedzai Cardiology Davie Ahmedzai Cardiology Davie Ahmedzai Cardiology Davie Ahmedzai Cardiology Davie Ahmedzai Cardiology Davie Ahmedzai Cardiology Davie Ahmedzai Cardiology Davie Ahmedzai Cardiology Davie Ahmedzai Cardiology Davie Ahmedzai Cardiology Davie Ahmedzai Cardiology Davie Ahmedzai Cardiology Follow up Prosper C Beat ty Cardiology Follow up Prosper C Beat ty Cardiology Follow up Prosper C Beat ty Cardiology Follow up : B P today: 168/70 P rior BP: 122/60 (12/31/2019) Labs Reviewed: C reat: 1.06 (10/31/2019) C hol: 164.0 (01/06/2016) HDL: 52.0 (01/06/2016) T.0 (01/06/2016) Pros[facility] Genaro Fernandez MD Cardiology Genaro Fernandez MD Cardiology Genaro Ramlowell SOLIMAN Cardiology Genaro Ramlowell SOLIMAN Cardiology Lakshmi May MD Cardiology Lakshmi May MD Cardiology Lakshmi May MD Cardiology Lakshmi May MD Cardiology Lakshmi May MD Cardiology Lakshmi May MD Cardiology Lakshmi May MD Cardiology Lakshmi May MD Cardiology Lakshmi May MD Cardiology follow up Lakshmi barnard MD Cardiology follow up Lakshmi barnard MD Cardiology follow up Lakshmi barnard MD Cardiology follow up Lakshmi barnard MD Cardiology:Per pt, akil perez gets cortisone injections in his knee and shoulders for pain management. Lakshmi May MD Cardiology:C/o b/l B LE edema that is fairly new since his last visit. Will check echo to evaluate his cardiac function. 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 His HgB A1c was recently checked. Lakshmi May MD Cardiology:C/o chron ic fatigue and often has to wake up throughout the night. Will do stress test and echo to evaluate his cardiac function. W ill do routine blood work to evaluate. Lakshmi May MD Cardiology:BP today: 142/62 P rior BP: 122/68 (03/17/2017) Lakshmi May MD Cardiology:Recent he at stroke due to the heat environment at his work. Advised him on increasing his fluid intake. Lakshmi May MD Cardiology Lakshmi May MD Cardiology Lakshmi May MD Cardiology:Will stop Vitamin D. Recheck with next bloodwork Lakshmi May MD Cardiology Lakshmi May MD Cardiology: B P today: 122/68 P rior BP: 124/80 (09/15/2016) Labs Reviewed: C reat: 0.70 (01/11/2012) C hol: 164.0 (01/06/2016) HDL: 52.0 (01/06/2016) T.0 (01/06/2016) Lakshmi May MD Cardiology:The patie nt is using CPAP on a regular basis. The patient has been benefiting from therapy and should continue use. Lakshmi May MD Cardiology:Last pacemaker functi on shows no events. Lakshmi May MD Cardiology Lakshmi May MD Cardiology Lakshmi May MD Cardiology Lakshmi May MD Cardiology Lakshmi May MD Cardiology Lakshmi May MD Cardiology Lakshmi May MD Cardiology Lakshmi May MD Cardiology Lakshmi May MD Cardiology Lakshmi May MD Cardiology Lakshmi May MD Cardiology Follow up:will try di et pill Tayo Zee MD Cardiology Follow up :machine broke, needs new script, has been 100% complinat Tayo Zee MD Cardiology Follow up :for 5 years, if hdl low and a1c would fit best trial cat 3 Tayo Zee MD Cardiology Follow up :rv paces 100%, nml ef 15, need to keep eye on ef while rv pacing Tayo Zee MD Cardiology Lakshmi May MD Cardiology Lakshmi May MD Cardiology Lakshmi May MD Cardiology Lakshmi May MD Cardiology Lakshmi May MD Cardiology Lakshmi May MD Cardiology Lakshmi May MD Cardiology Lakshmi May MD Cardiology Lakshmi May MD follow up: T he following medications were removed from the medication list: Metoprolol Tartrate 25 Mg Tabs (Metoprolol tartrate) ..... One tablet twice daily His updated medication list for this problem includes: Norvasc 5 Mg Oral Tabs (Amlodipine besylate) ..... Po daily Aspirin 325 Mg Tabs (Aspirin) ..... 1 tab daily Lisinopril-hydrochlorothiazide 20-25 Mg Oral Tabs (Lisinopril-hydrochlorothiazide) ..... Po daily BP today: 176/80 P rior BP: 134/75 (08/14/2014) Labs Reviewed: C reat: 0.70 (01/11/2012) C hol: 104 (01/11/2012) LDL: 52 (01/11/2012) Lakshmi May MD follow up: O rders: C arotid Duplex Bilateral (CPT-64319) X -Ray, Chest, PA & Lateral (CPT-90371) P FRANNY, N TERMINAL (64570) Tayo Zee MD follow up: H is updated medication list for this problem includes: Aspirin 325 Mg Tabs (Aspirin) ..... 1 tab daily Lisinopril 20 Mg Tabs (Lisinopril) ..... One tab. daily Glyburide 5 Mg Tabs (Glyburide) ..... 1.5 tabs twice daily Januvia 100 Mg Tabs (Sitagliptin phosphate) ..... 1 tab daily Actos 45 Mg Tabs (Pioglitazone hcl) ..... Daily Metformin Hcl 1000 Mg Tabs (Metformin hcl) ..... Twice daily Lakshmi May MD follow up: H is updated medication list for this problem includes: Aspirin 325 Mg Tabs (Aspirin) ..... 1 tab daily Lisinopril 20 Mg Tabs (Lisinopril) ..... One tab. daily Metoprolol Tartrate 25 Mg Tabs (Metoprolol tartrate) ..... One tablet twice daily Orders: E KG (CPT-07171) Lakshmi May MD follow up: H is updated medication list for this problem includes: Aspirin 325 Mg Tabs (Aspirin) ..... 1 tab daily Lisinopril 20 Mg Tabs (Lisinopril) ..... One tab. daily Metoprolol Tartrate 25 Mg Tabs (Metoprolol tartrate) ..... One tablet twice daily Lakshmi May MD follow up: H is updated medication list for this problem includes: Januvia 100 Mg Tabs (Sitagliptin phosphate) ..... 1 tab daily Lisinopril 20 Mg Tabs (Lisinopril) ..... One tab. daily Actos 45 Mg Tabs (Pioglitazone hcl) ..... Daily Aspirin 325 Mg Tabs (Aspirin) ..... 1 tab daily Metformin Hcl 1000 Mg Tabs (Metformin hcl) ..... Twice daily BP today: 137/72 Prior BP: 132/74 (09/21/2012) Labs Reviewed: C reat: 0.70 (01/11/2012) Lakshmi May MD follow up: H is updated medication list for this problem includes: Lisinopril 20 Mg Tabs (Lisinopril) ..... One tab. daily Metoprolol Tartrate 25 Mg Tabs (Metoprolol tartrate) ..... One tablet twice daily Aspirin 325 Mg Tabs (Aspirin) ..... 1 tab daily Orders: E KG (CPT-17639) BP today: 137/72 P rior BP: 132/74 (09/21/2012) Labs Reviewed: C reat: 0.70 (01/11/2012) C hol: 104 (01/11/2012) LDL: 52 (01/11/2012) Lakshmi May MD follow up: H is updated medication list for this problem includes: Lisinopril 20 Mg Tabs (Lisinopril) ..... One tab. daily Metoprolol Tartrate 25 Mg Tabs (Metoprolol tartrate) ..... One tablet twice daily Aspirin 325 Mg Tabs (Aspirin) ..... 1 tab daily BP today: 137/72 Prior BP: 132/74 (09/21/2012) H CT: 35.8 (01/11/2012) Platelets: 181 (01/11/2012) C reat: 0.70 (01/11/2012) Na+: 139 (01/11/2012) K+: 4.9 (01/11/2012) TSH: 3.700 (01/11/2012) Stress Echo Findings: Baseline EKG revealed RBBB/ during exercise had very frequent VPC`s, but no ST segment depression to suggest ischemia. Baseline echo revealed left ventricular hypertrophy with normal left ventricular function; post exercise revealed expected increase in wall motion and decrease in cavity size. No wall motion abnormalities. In view of RBBB on baseline EKG; an exericse myoview test maybe considered, also for very frequent VPC`s. - [facility] (12/30/2011) C ardiac Cath: Angiographically normal coronary arteries. Normal left ventricular systolic function with an ejection fraction of 60%. - [facility] (01/11/2012) Lakshmi May MD follow up: H is updated medication list for this problem includes: Lisinopril 20 Mg Tabs (Lisinopril) ..... One tab. daily Metoprolol Tartrate 25 Mg Tabs (Metoprolol tartrate) ..... One tablet twice daily Aspirin 325 Mg Tabs (Aspirin) ..... 1 tab daily BP today: 137/72 Prior BP: 132/74 (09/21/2012) H CT: 35.8 (01/11/2012) Platelets: 181 (01/11/2012) C reat: 0.70 (01/11/2012) Na+: 139 (01/11/2012) K+: 4.9 (01/11/2012) TSH: 3.700 (01/11/2012) Stress Echo Findings: Baseline EKG revealed RBBB/ during exercise had very frequent VPC`s, but no ST segment depression to suggest ischemia. Baseline echo revealed left ventricular hypertrophy with normal left ventricular function; post exercise revealed expected increase in wall motion and decrease in cavity size. No wall motion abnormalities. In view of RBBB on baseline EKG; an exericse myoview test maybe considered, also for very frequent VPC`s. - [facility] (12/30/2011) C ardiac Cath: Angiographically normal coronary arteries. Normal left ventricular systolic function with an ejection fraction of 60%. - [facility] (01/11/2012) Lakshmi May MD follow up: T he following medications were removed from the medication list: Glyburide-metformin 2.5-500 Mg Tabs (Glyburide-metformin) ..... 2 in am and pm His updated medication list for this problem includes: Januvia 100 Mg Tabs (Sitagliptin phosphate) ..... 1 tab daily Lisinopril 20 Mg Tabs (Lisinopril) ..... One tab. daily Actos 45 Mg Tabs (Pioglitazone hcl) ..... Daily Aspirin 325 Mg Tabs (Aspirin) ..... 1 tab daily Metformin Hcl 1000 Mg Tabs (Metformin hcl) ..... Twice daily BP today: 132/74 Prior BP: 138/70 (02/14/2012) Labs Reviewed: C reat: 0.70 (01/11/2012) Lakshmi May MD follow up: H is updated medication list for this problem includes: Lisinopril 20 Mg Tabs (Lisinopril) ..... One tab. daily Metoprolol Tartrate 25 Mg Tabs (Metoprolol tartrate) ..... One tablet twice daily Aspirin 325 Mg Tabs (Aspirin) ..... 1 tab daily Lakshmi May MD follow up: H is updated medication list for this problem includes: Lisinopril 20 Mg Tabs (Lisinopril) ..... One tab. daily Metoprolol Tartrate 25 Mg Tabs (Metoprolol tartrate) ..... One tablet twice daily Aspirin 325 Mg Tabs (Aspirin) ..... 1 tab daily BP today: 132/74 Prior BP: 138/70 (02/14/2012) H CT: 35.8 (01/11/2012) Platelets: 181 (01/11/2012) C reat: 0.70 (01/11/2012) Na+: 139 (01/11/2012) K+: 4.9 (01/11/2012) TSH: 3.700 (01/11/2012) Stress Echo Findings: Baseline EKG revealed RBBB/ during exercise had very frequent VPC`s, but no ST segment depression to suggest ischemia. Baseline echo revealed left ventricular hypertrophy with normal left ventricular function; post exercise revealed expected increase in wall motion and decrease in cavity size. No wall motion abnormalities. In view of RBBB on baseline EKG; an exericse myoview test maybe considered, also for very frequent VPC`s. - O (12/30/2011) C ardiac Cath: Angiographically normal coronary arteries. Normal left ventricular systolic function with an ejection fraction of 60%. - [facility] (01/11/2012) Lakshmi May MD follow up: H is updated medication list for this problem includes: Januvia 100 Mg Tabs (Sitagliptin phosphate) ..... 1 tab daily Glyburide-metformin 2.5-500 Mg Tabs (Glyburide-metformin) ..... 2 in am and pm Lisinopril 20 Mg Tabs (Lisinopril) ..... One tab. daily Actos 45 Mg Tabs (Pioglitazone hcl) ..... Daily Aspirin 325 Mg Tabs (Aspirin) ..... 1 tab daily BP today: 138/70 Prior BP: 150/60 (01/09/2012) Labs Reviewed: C reat: 0.70 (01/11/2012) Lakshmi May MD follow up: H is updated medication list for this problem includes: Lisinopril 20 Mg Tabs (Lisinopril) ..... One tab. daily Metoprolol Tartrate 25 Mg Tabs (Metoprolol tartrate) ..... One tablet twice daily Aspirin 325 Mg Tabs (Aspirin) ..... 1 tab daily BP today: 138/70 Prior BP: 150/60 (01/09/2012) S tress Echo Findings: Baseline EKG revealed RBBB/ during exercise had very frequent VPC`s, but no ST segment depression to suggest ischemia. Baseline echo revealed left ventricular hypertrophy with normal left ventricular function; post exercise revealed expected increase in wall motion and decrease in cavity size. No wall motion abnormalities. In view of RBBB on baseline EKG; an exericse myoview test maybe considered, also for very frequent VPC`s. - [facility] (12/30/2011) C ardiac Cath: Angiographically normal coronary arteries. Normal left ventricular systolic function with an ejection fraction of 60%. - [facility] (01/11/2012) C HOL: 104 (01/11/2012) LDL: 52 (01/11/2012) HCT: 35.8 (01/11/2012) Platelets: 181 (01/11/2012) C reat: 0.70 (01/11/2012) Na+: 139 (01/11/2012) K+: 4.9 (01/11/2012) INR: 1.0 (01/11/2012) T SH: 3.700 (01/11/2012) Lakshmi May MD follow up: H is updated medication list for this problem includes: Lisinopril 20 Mg Tabs (Lisinopril) ..... One tab. daily Metoprolol Tartrate 25 Mg Tabs (Metoprolol tartrate) ..... One tablet twice daily Aspirin 325 Mg Tabs (Aspirin) ..... 1 tab daily BP today: 138/70 Prior BP: 150/60 (01/09/2012) H CT: 35.8 (01/11/2012) Platelets: 181 (01/11/2012) C reat: 0.70 (01/11/2012) Na+: 139 (01/11/2012) K+: 4.9 (01/11/2012) TSH: 3.700 (01/11/2012) Stress Echo Findings: Baseline EKG revealed RBBB/ during exercise had very frequent VPC`s, but no ST segment depression to suggest ischemia. Baseline echo revealed left ventricular hypertrophy with normal left ventricular function; post exercise revealed expected increase in wall motion and decrease in cavity size. No wall motion abnormalities. In view of RBBB on baseline EKG; an exericse myoview test maybe considered, also for very frequent VPC`s. - [facility] (12/30/2011) C ardiac Cath: Angiographically normal coronary arteries. Normal left ventricular systolic function with an ejection fraction of 60%. - [facility] (01/11/2012) Lakshmi May MD Lakshmi May MD Lakshmi May MD : H is updated medication list for this problem includes: Lisinopril 20 Mg Tabs (Lisinopril) ..... One tab. daily Lakshmi May MD : H is updated medication list for this problem includes: Lisinopril 20 Mg Tabs (Lisinopril) ..... One tab. daily S tress Echo Findings: Baseline EKG revealed RBBB/ during exercise had very frequent VPC`s, but no ST segment depression to suggest ischemia. Baseline echo revealed left ventricular hypertrophy with normal left ventricular function; post exercise revealed expected increase in wall motion and decrease in cavity size. No wall motion abnormalities. In view of RBBB on baseline EKG; an exericse myoview test maybe considered, also for very frequent VPC`s. - O (12/30/2011) Lakshmi May MD : H is updated medication list for this problem includes: Januvia 25 Mg Tabs (Sitagliptin phosphate) ..... Once daily Glyburide-metformin 2.5-500 Mg Tabs (Glyburide-metformin) ..... 2 in am and pm Lisinopril 20 Mg Tabs (Lisinopril) ..... One tab. daily Actos 45 Mg Tabs (Pioglitazone hcl) ..... Daily Lakshmi May MD Date Name Complete Echo Complete Echo PARTIAL THROMBOPLAST IN TIME, ACTIVATED URINALYSIS, COMPLETE W/REFLEX TO CULTURE COMPREHENSIVE METABO LIC PANEL W/EGFR PROTHROMBIN TIME WIT H INR CBC (INCLUDES DIFF/P LT) TSH, 3RD GENERATION W/REFLEX TO FT4 COMPREHENSIVE METABO LIC PANEL, W/EGFR IRON AND TOTAL IRON BINDING CAPACITY FERRITIN CBC (INCLUDES DIFF/P LT) TSH, 3RD GENERATION W/REFLEX TO FT4 COMPREHENSIVE METABO LIC PANEL, W/EGFR IRON AND TOTAL IRON BINDING CAPACITY FERRITIN CBC (INCLUDES DIFF/P LT) Sleep Study Home STR - Adenosine Complete Echo Complete Echo PROBNP, N TERMINAL VITAMIN D, 25-HYDROX Y, LC/MS/MS HEMOGLOBIN A1c LIPID PANEL DLCO - 75851 FRC - 30556 FVC - 44984 CBC (H/H, RBC, INDIC ES, WBC, PLT) COMPREHENSIVE METABO LIC PANEL W/EGFR PROBNP, N TERMINAL X-Ray, Chest, PA & L ateral Carotid Duplex Bilat eral Complete Echo HISTORY OF PROCEDURES Procedure Date Procedure Name Provider Procedure Notes S tatus Complex e/m visit ad d on Lakshmi May MD completed EKG Lakshmi May MD completed EKG Lakshmi May MD completed EKG Lakshmi May MD completed EKG Lakshmi May MD completed ICM Interrogation, Remote (Prof) Lakshmi May MD INTERROGATION EVAL REMOTE </30 D CV MNTR SYS completed ICM Interrogation, Remote (Tech) Lakshmi May MD INTERROGATION EVAL REMOTE </30 D TECH REVIEW completed Pacemaker Interrogation, Remote (Tech) Lakshmi May MD INTERROGATION REMOTE </90 D CAREER TECHNICAL COUNSELOR REVIEW completed Pacemaker Interrogation, Remote (Prof) Lakshmi May MD INTERROGATION EVAL REMOTE </90 D 1/2/BERRY PLANTER LEAD P completed Pacemaker Interrogation, Remote (Tech) Lakshmi May MD INTERROGATION REMOTE </90 D CAREER TECHNICAL COUNSELOR REVIEW completed Pacemaker Interrogation, Remote (Prof) Lakshmi May MD INTERROGATION EVAL REMOTE </90 D 1/2/BERRY PLANTER LEAD P completed Regadenoson, 4 units Lakshmi May MD completed Cardiolite, 2 units Lakshmi May MD completed SPECT Images Beverly Lowry MD completed Stress EKG Beverly Lowry MD completed Pacemaker Interrogation, Remote (Tech) Lakshmi May MD INTERROGATION REMOTE </90 D CAREER TECHNICAL COUNSELOR REVIEW completed Pacemaker Interrogation, Remote (Prof) Lakshmi May MD INTERROGATION EVAL REMOTE </90 D 1/2/BERRY PLANTER LEAD P completed Pacemaker Interrogation, Remote (Tech) Lakshmi May MD INTERROGATION REMOTE </90 D CAREER TECHNICAL COUNSELOR REVIEW completed Pacemaker Interrogation, Remote (Prof) Lakshmi May MD INTERROGATION EVAL REMOTE </90 D 1/2/BERRY PLANTER LEAD P completed SNOMED-CT: [id number] Current Medications Documented Lakshmi May MD completed Pacemaker Interrogation, Remote (Tech) Lakshmi May MD INTERROGATION REMOTE </90 D CAREER TECHNICAL COUNSELOR REVIEW completed Pacemaker Interrogation, Remote (Prof) Lakshmi May MD INTERROGATION EVAL REMOTE </90 D 1/2/BERRY PLANTER LEAD P completed ICM Interrogation, Remote (Prof) Lakshmi May MD INTERROGATION EVAL REMOTE </30 D CV MNTR SYS completed ICM Interrogation, Remote (Tech) Lakshmi May MD INTERROGATION EVAL REMOTE </30 D TECH REVIEW completed SNOMED-CT: 50564501 Physical Exam, Performed: Pulse Exam of Foot Laskhmi May MD completed EKG Lakshmi May MD completed SNOMED-CT: [id number] Current Medications Documented Lakshmi May MD completed Pacemaker Interrogation, Remote (Tech) Lakshmi May MD INTERROGATION REMOTE </90 D CAREER TECHNICAL COUNSELOR REVIEW completed Pacemaker Interrogation, Remote (Prof) Lakshmi May MD INTERROGATION EVAL REMOTE </90 D 1/2/BERRY PLANTER LEAD P completed SNOMED-CT: 24122346 Physical Exam, Performed: Pulse Exam of Foot Lakshmi May MD completed Pacemaker Interrogation, Remote (Tech) Lakshmi May MD INTERROGATION REMOTE </90 D CAREER TECHNICAL COUNSELOR REVIEW completed Pacemaker Interrogation, Remote (Prof) Lakshmi May MD INTERROGATION EVAL REMOTE </90 D 1/2/BERRY PLANTER LEAD P completed FVC - 80553 Lakshmi May MD complete d FRC - 99540 Lakshmi May MD complete d DLCO - 72475 Lakshmi May MD complet ed SNOMED-CT: [id number] Current Medications Documented Tayo Zee MD completed Pacemaker Interrogation, Remote (Tech) Lakshmi May MD INTERROGATION REMOTE </90 D CAREER TECHNICAL COUNSELOR REVIEW completed Pacemaker Interrogation, Remote (Prof) Lakshmi May MD INTERROGATION EVAL REMOTE </90 D 1/2/BERRY PLANTER LEAD P completed SNOMED-CT: [id number] Physical Exam, Performed: Pulse Exam of Foot Lakshmi May MD completed EKG Lakshmi May MD completed SNOMED-CT: [id number] Current Medications Documented Lakshmi May MD completed Pacemaker Interrogation, Remote (Tech) Lakshmi May MD INTERROGATION REMOTE </90 D CAREER TECHNICAL COUNSELOR REVIEW completed Pacemaker Interrogation, Remote (Prof) Lakshmi May MD INTERROGATION EVAL REMOTE </90 D 1/2/BERRY PLANTER LEAD P completed Pacemaker Interrogation, Remote (Tech) Lakshmi May MD INTERROGATION REMOTE </90 D CAREER TECHNICAL COUNSELOR REVIEW completed Pacemaker Interrogation, Remote (Prof) Lakshmi May MD INTERROGATION EVAL REMOTE </90 D 1/2/BERRY PLANTER LEAD P completed SNOMED-CT: [id number] Physical Exam, Performed: Pulse Exam of Foot Lakshmi aMy MD completed SNOMED-CT: [id number] Current Medications Documented Matthew Young RN completed Pacemaker Interrogation, Remote (Tech) Lakshmi May MD INTERROGATION REMOTE </90 D CAREER TECHNICAL COUNSELOR REVIEW completed Pacemaker Interrogation, Remote (Prof) Lakshmi May MD INTERROGATION EVAL REMOTE </90 D 1/2/BERRY PLANTER LEAD P completed Pacemaker Interrogation, Remote (Tech) Lakshmi May MD INTERROGATION REMOTE </90 D CAREER TECHNICAL COUNSELOR REVIEW completed Pacemaker Interrogation, Remote (Prof) Lakshmi May MD INTERROGATION EVAL REMOTE </90 D 1/2/BERRY PLANTER LEAD P completed EKG Tayo Zee MD complete d Pacemaker Interrogation, Remote (Tech) Lakshmi May MD INTERROGATION REMOTE </90 D CAREER TECHNICAL COUNSELOR REVIEW completed Pacemaker Interrogation, Remote (Prof) Lakshmi May MD INTERROGATION EVAL REMOTE </90 D 1/2/BERRY PLANTER LEAD P completed EKG Lakshmi May MD completed ICM Interrogation, Remote (Prof) Lakshmi May MD INTERROGATION EVAL REMOTE </30 D CV MNTR SYS completed Pacemaker Interrogation, Remote (Tech) Lakshmi May MD INTERROGATION REMOTE </90 D CAREER TECHNICAL COUNSELOR REVIEW completed Pacemaker Interrogation, Remote (Prof) Lakshmi May MD INTERROGATION EVAL REMOTE </90 D 1/2/BERRY PLANTER LEAD P completed Pacemaker Interrogation, Remote (Tech) Lakshmi May MD INTERROGATION REMOTE </90 D CAREER TECHNICAL COUNSELOR REVIEW completed Pacemaker Interrogation, Remote (Prof) Lakshmi May MD INTERROGATION EVAL REMOTE </90 D 1/2/BERRY PLANTER LEAD P completed Pacemaker Interrogation, Remote (Tech) Lakshmi May MD INTERROGATION REMOTE </90 D CAREER TECHNICAL COUNSELOR REVIEW completed Pacemaker Interrogation, Remote (Prof) Lakshmi May MD INTERROGATION EVAL REMOTE </90 D 1/2/BERRY PLANTER LEAD P completed DLCO - 36373 Dean Durham completed FRC - 50493 Dean Durham completed FVC - 55749 Dean Durham completed EKG Lakshmi May MD completed Pacemaker Interrogation, Remote (Tech) Lakshmi May MD INTERROGATION REMOTE </90 D CAREER TECHNICAL COUNSELOR REVIEW completed Pacemaker Interrogation, Remote (Prof) Lakshmi May MD INTERROGATION EVAL REMOTE </90 D 1/2/BERRY PLANTER LEAD P completed Pacemaker Interrogation, Remote (Tech) Lkashmi May MD INTERROGATION REMOTE </90 D CAREER TECHNICAL COUNSELOR REVIEW completed Pacemaker Interrogation, Remote (Prof) Lakshmi May MD INTERROGATION EVAL REMOTE </90 D 1/2/BERRY PLANTER LEAD P completed
--- OUTSIDE RECORDS SUMMARY | 2024-05-02 09:29 | XMS_ITS | Referral Summary ---
Author Organization [facility] Address [address] [place] [address] Care Team Providers Care Small Equipment Operator Name Role Phone Alphonso Echols MD Primary Care Provider Encounters Date Type Department Care Team Description 04/25/2024 1:43 PM CLINICAL OPERATIONS CONSULTANT - 04/25/2024 11:59 PM CLINICAL OPERATIONS CONSULTANT Hospital Encounter [id number] [place] [address] Discharge Disposition: Discharge to home or self care 04/25/2024 12:30 PM CLINICAL OPERATIONS CONSULTANT Office Visit [facility] Rheumatology at [facility] [address] [place] [address] Farida Serrano MD Rheumatoid arthritis with positive rheumatoid factor, involving unspecified site (HCC) (Primary Dx); Long-term use of high-risk medication from Last 3 Months Allergies No known active allergies Medications amLODIPine (NORVASC) 10 mg tablet take 1 tablet by oral route every day 0 0 05/12/ 016 Active losartan-hydroc hlorothiazide (HYZAAR) 100-25 mg [...] misc USE TO CHECK BLOOD SUGAR BID Active meclizine (ANTIVERT) 25 mg tablet meclizine 25 mg tablet TK 1 T PO TID PRN Active OneTouch Delica Plus Lancet 30 gauge misc Active ranolazine ER (RANEXA) 500 mg 12 hr tablet Take 1 tablet (500 mg total) by mouth 2 (two) times a day Active lisinopriL (PRINIVIL,ZESTR IL) 20 mg tablet [...] HAVE FLARES IN THE FUTURE 21 tablet Active cholecalciferol (VITAMIN D-3) 50,000 unit capsule Take by mouth Active ezetimibe (ZETIA) 10 mg tablet ezetimibe 10 mg tablet 970 Active BD Shelby 2nd Gen Pen Needle 32 gauge x 5/32 needle USE WITH INSULIN INJECTION TWICE DAILY Active rosuvastatin (CRESTOR) 40 mg tablet Take 1 tablet (40 mg total) by mouth daily Active metFORMIN (GLUCOPHAGE) 1,000 mg tablet Take 1 tablet (1,000 mg total) by mouth 2 (two) times a day Active Jardiance 25 mg tablet Take 1 tablet (25 mg total) by mouth daily Active TRESIBA 200 unit/mL (3 mL) pen for injection INJECT 120 UNITS SUBCUTANEOUSLY ONCE DAILY Active Ozempic 2 mg/dose (8 mg/3 mL) pen injector injection Inject 2 mg under the skin once a week Active FreeStyle Yaz 2 Sensor kit as directed Active glimepiride (AMARYL) 4 mg tablet Take 1 tablet (4 mg total) by mouth daily Active methylPREDNISol one (Medrol, Anibal,) 4 mg Dosepack follow package directions 1 packet Active HumaLOG 100 unit/mL pen for injection MAX 60 UNITS PER DAY, USE DIRECTED PER SLIDING SCALE Active HYDROcodone-ursula taminophen (NORCO) 5-325 mg per tablet Take 1 tablet by mouth every 8 (eight) hours Active diclofenac sodium (VOLTAREN) 1 % gel APPLY TOPICALLY TO AFFECTED AREA TWICE DAILY Active fluorouraciL (EFUDEX) 5 % cream Active Space Chamber with Large Mask spacer as directed Active meloxicam (MOBIC) 15 mg tablet Take [...] HTN (hypertension) Hyperlipidemia 05/25/2012 Overview (07/01/2016): Hyperlipidemia Immunizations Name Administration Dates Next Due Influenza LAIV (Nasal) 02/04/2020,2018,01/22/2018,02/14 Influenza, Quadrivalent, Hig h Dose, Preservative Free, Intrr 02/17/2021 Influenza, Quadrivalent, Spl it, Intramuscular 02/04/2020,02/19/2019,02/15/2016 Influenza, Quadrivalent, Spl it, Preservative Free, Intramuscular 12/13/2022,12/21/2021,02/04/2020,01/22 Influenza, Trivalent, High D ose, Split, Preservative Free, Intramuscular 02/21/2017,03/09/2015 Influenza, Trivalent, Preser vative Free, Intramuscular 01/17/2024,02/17/2021,02/04/2020,02/08 Influenza, Trivalent, Split, Preservative Free, Intradermal 01/17/2014 Influenza, Unspecified 01/24/2019 [place] SARS-CoV-2 Monovalent Vaccination (12+ Yrs) PURPLE 02/11/2021,06/30/2020,06/09/2020 Pneumococcal Conjugate PCV 13 02/19/2019 Pneumococcal Polysaccharide PPV23 02/25/2022, TD Preservative Free 05/17/2017 Td, adsorbed 05/17/2017 Tdap 03/31/2023 Social History Tobacco Use Types Packs/Day Years [...] on file Legal Sex Male 8:37 AM CLINICAL OPERATIONS CONSULTANT Gender Identity Not on file Sexual Orientation Not on file Last Filed Vital Signs Vital Sign Reading Time Taken Comments Blood Pressure 126/72 04/25/2024 12:38 PM CLINICAL OPERATIONS CONSULTANT Pulse 60 04/25/2024 12:38 PM CLINICAL OPERATIONS CONSULTANT Temperature 36.3 C (97.4 F) 04/25/2024 12:38 PM CLINICAL OPERATIONS CONSULTANT Respiratory Rate 16 09/27/2023 11:53 AM CDT Oxygen Saturation 96% 04/25/2024 12:38 PM CLINICAL OPERATIONS CONSULTANT Inhaled Oxygen Concentration - - Weight 114.5 kg (252 lb 8 oz) 04/25/2024 12:38 P M CLINICAL OPERATIONS CONSULTANT Height 165.1 cm (5' 5 ) 04/25/2024 12:38 PM CLINICAL OPERATIONS CONSULTANT Body Mass Index 42.02 04/25/2024 12:38 PM CLINICAL OPERATIONS CONSULTANT Plan of Treatment Not on file Procedures Procedure Name Priority Date/Time Associated Diagnosis Comments EGFR Routine 04/25/2024 1:38 PM CLINICAL OPERATIONS CONSULTANT Long-term use of high-risk medication COMPREHENSIVE METABOLIC PANEL Routine 04/25/2024 1:38 PM CLINICAL OPERATIONS CONSULTANT Long-term use of high-risk medication CBC WITHOUT DIFFERENTIAL Routine 04/25/2024 1:38 PM CLINICAL OPERATIONS CONSULTANT Long-term use of high-risk medication ERYTHROCYTE SEDIMENTATION RATE Routine 04/25/2024 1:38 PM CLINICAL OPERATIONS CONSULTANT Rheumatoid arthritis with positive rheumatoid factor, involving unspecified site (HCC) from Last 3 Months Results * eGFR (04/25/2024 1:38 PM CLINICAL OPERATIONS CONSULTANT) eGFR >90 >=60 mL/min/1. 73 m2 Comment: [...] of Race in Diagnosing Kidney Disease, JASN 2020). The CKD-EPI equation should not be used for patients with unstable renal function and has not been validated in children and those over 70. Current interpretive data was last reviewed 2021. Blood 04/25/2024 1:38 PM CLINICAL OPERATIONS CONSULTANT 04/25/2024 3:58 PM CLINICAL OPERATIONS CONSULTANT Farida Serrano MD LAB BLOOD ORDERABLES Final Result Performing Organization Address [facility] Co de Phone Number [facility] [place] [address] [place] [address] * Erythrocyte sedimentation rate (04/25/2024 1:38 PM CLINICAL OPERATIONS CONSULTANT) Erythrocyte sedimentation rate 14 1 - 20 mm/hr Blood 04/25/2024 1:38 PM CLINICAL OPERATIONS CONSULTANT 04/25/2024 3:39 PM CLINICAL OPERATIONS CONSULTANT Farida Serrano MD LAB BLOOD ORDERABLES Final Result Performing Organization Address [facility] Co de Phone Number [facility] [address] [place] [address] * (ABNORMAL) CBC without differential (04/25/2024 1:38 PM CLINICAL OPERATIONS CONSULTANT) [facility] WBC 6.8 3.8 - 9.9 K/cumm Hgb 13.4 13.0 - 17.5 g/dL [facility] Hct 41.6 38.9 - 50.3 % [facility] Plt 252 150 - 400 K/cumm [facility] MPV 11.6 9.1 - 12.3 fL [facility] RBC 4.08(L) 4.30 - 5.80 M/cumm [facility] MCV 102.0(H) 81.3 - 96.4 fL [facility] MCH 32.8 27.1 - 33.3 pg [facility] MCHC 32.2(L) 32.3 - 35.7 g/dL [facility] RDW CV 13.7 11.1 - 14.9 % [facility] RDW SD 50.8(H) 35.7 - 48.1 fL [facility] NRBC abs 0.00 0.00 - 0.01 K/cumm [facility] Blood 04/25/2024 1:38 PM CLINICAL OPERATIONS CONSULTANT 04/25/2024 3:39 PM CLINICAL OPERATIONS CONSULTANT Farida Serrano MD LAB BLOOD ORDERABLES Final Result [facility] [address] Department [place] [address] * (ABNORMAL) Comprehensive metabolic panel (04/25/2024 1:38 PM CLINICAL OPERATIONS CONSULTANT) [facility] Sodium 142 135 - 145 mmol/L Potassium, pl 4.1 3.3 - 4.9 mmol/L [facility] Chloride 103 97 - 110 mmol/L [facility] CO2 28 22 - 32 mmol/L [facility] Anion gap 11 2 - 15 mmol/L [facility] BUN 10 6 - 25 mg/dL [facility] Creatinine 0.74(L) 0.80 - 1.30 mg/dL [facility] Glucose 102 70 - 199 mg/dL [facility] Comment: Interpretive Data Fasting glucose >/= 126 [...] classification and Diagnosis of Diabetes Diabetes Care 2021; 46: S19-S40. Current interpretive data was last revised 2022. Calcium 9.3 8.5 - 10.3 mg/dL [facility] Bilirubin, total 0.4 0.1 - 1.2 mg/dL [facility] Protein, pl 7.0 6.5 - 8.5 g/dL [facility] Albumin 4.3 3.5 - 5.0 g/dL [facility] Alk phos 90 40 - 130 Units/L [facility] ALT 23 7 - 55 Units/L [facility] AST 27 10 - 50 Units/L [facility] Blood 04/25/2024 1:38 PM CLINICAL OPERATIONS CONSULTANT 04/25/2024 3:58 PM CLINICAL OPERATIONS CONSULTANT us Farida Serrano MD LAB BLOOD ORDERABLES Final Result [facility] [address] Department [place] [address] from Last 3 Months Insurance [facility] ACCESS [facility] ACCESS CHOICE Care Teams Small Equipment Operator Relationship Specialty Start Date End Date Alphonso Echols MD PCP - General Internal Medicine 05/29/17
--- OUTSIDE RECORDS SUMMARY | 2024-05-02 09:29 | XMS_ITS | Data Portability ---
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 We talked about treatment options today in detail he would like to try a round of gel shots he needs to lose a few more lb and get his hemoglobin A1c down to a better level he states his last 1 was 8. At that point he could qualify for total knee arthroplasty. In the meantime he would like to try gel shots but we have to get these approved so for now we will do cortisone it has been 4 months since his last injections by his report. Under sterile conditions I injected the patient's right knee joint in the office with 4 cc 0.5% Marcaine and 20 mg of Kenalog. Patient tolerated procedure well. I will see him back in 6 weeks we will do gel shots at that time once we get them approved. Also wanted try a course of oral prednisone for 6 days he will monitor his blood sugars he has a sliding scale that he uses for insulin when his blood sugars get too high he will monitor this carefully. We talked about total knee arthroplasty in detail today including risks benefits limitations and alternatives and the procedure itself and recovery time. He voiced understanding agrees above plan will call for any further problems difficulties or questions. Not available 12/26/2023 10:30:13 02/26/2024 02/26/2024 The patient has severe primary osteoarthritis of the right knee joint. At his request under sterile conditions I injected the patient's right knee joint today in the office with Euflexxa injection number 1 from the specialty pharmacy. The patient tolerated the procedure well. I will see him back next week for the 2nd injection right knee he was given a refill on his diclofenac 75 mg b.i.d. with food at his request. I have advised him and his son who was with him today that they may not get great relief from the gel shots due to the severity of the osteoarthritis but he could get some that would make his knee pain tolerable and livable for a time we will have to see how things go. They voiced understanding and agree with the above plan they will call for any further problems difficulties or questions. Not available 02/26/2024 11:33:21 03/04/2024 03/04/2024 the patient has severe primary osteoarthritis of the right knee joint. At his request under sterile conditions I injected the patient's right knee joint in the office today with Euflexxa injection number 2 this is from the specialty pharmacy. I will see him back as soon as possible for the 3rd injection he is leaving town for a couple of weeks due to a family member being very ill. Unfortunately he can not come to his next appointment next week when he calls in again after he returns to town we will get him right into do his 3rd injection right knee. The patient and his son voiced understanding and agreed with the above plan they will call for any further problems difficulties or questions. Not available 03/04/2024 11:00:29 04/02/2024 04/02/2024 the patient has severe primary osteoarthritis right knee joint. Under sterile conditions I injected the patient's right knee joint in the office today with Euflexxa injection number 3 from the specialty pharmacy. The patient tolerated the procedure well. He will give it time see how things go I will see him back in 6 weeks we talked about physical therapy wanted try a course of physical therapy to see if this helps give him more relief we will get that set up. He will continue with diclofenac 75 mg b.i.d. if he gets no relief from the gel shots we could do cortisone again 6 weeks we will see how he does. He voiced understanding and agreed with the above plan he will call for any further problems difficulties or questions. The patient's son was with him today helping translate from Botswanan to Scottish. Not available 04/02/2024 15:38:02 Plan of Treatment Reminders Order Date Submit Date Provider Last Modified By Organization Details Last Modified Time Details Appointments Any 5 2024 10:15A M LUCIEN Wade Not available Not available Not available Any 2024 09:00A M Silvestre Trevino MD Not available Not available Not available Lab PSA, serum or plasma [address] (Lab), [address] [place], [address], 05/01/2024 09:54:23 vitamin D, 25-hydr oxy, total, serum [address] (Lab), [address] [place], [address], 05/01/2024 09:54:22 CBC 2024 025 [facility] (Lab), [address] [place], [address], 04/26/2024 02:03:16 CMP, serum or plasma 2024 025 [facility] (Lab), [address] [place], [address], 04/26/2024 02:03:16 lipid panel, serum [address] (Lab), [address] [place], [address], 05/01/2024 09:54:[address] l therapi st referra l - patient to schedul e 2024 025 [facility], [address], [place], [address], 04/04/2024 12:37:51 general surgeon william recinos - Please call patient to [facility] 2024 025 CASSIE Thacker MD, [address], [address], [place], [address], 04/11/2024 14:20:20 Procedures injecti on/aspi ration joint/b ursa (PROC) 2023 024 [email or web address] In-Office Order, Internal Use Only DO Not Attach Compendium DO Not Attach Compendium, Do Not Delete/merge, [id number] 12/26/2023 10:06:20 injecti on/aspi ration joint/b ursa (PROC) - in office procedu re, adminis tered by provide r 2023 024 In-Office Order, Internal Use Only DO Not Attach Compendium DO Not Attach Compendium, Do Not Delete/merge, [id number] 02/26/2024 11:18:21 injecti on/aspi ration joint/b ursa (PROC) - in office procedu re, adminis tered by provide r 2023 024 In-Office Order, Internal Use Only DO Not Attach Compendium DO Not Attach Compendium, Do Not Delete/merge, [id number] 03/04/2024 10:48:41 injecti on/aspi ration joint/b ursa (PROC) - in office procedu re, adminis tered by provide r 2024 025 In-Office Order, Internal Use Only DO Not Attach Compendium DO Not Attach Compendium, Do Not Delete/merge, [id number] 04/02/2024 15:29:14 Surgeries None recorde d. Imaging XR, knee 2023 024 [facility], [facility], [place], [address], 12/26/2023 11:25:25 Medication Orders Marcain e 0.5 % (5 mg/mL) injecti on solutio n 2023 [facility], [facility] [place], [address], 04/10/2024 10:11:36 Kenalog 10 mg/mL suspens ion for injecti on 2023 [facility], [address] [place] [address], [address], 04/10/2024 10:09:47 prednis one 10 mg tablets in a dose pack 2023 [facility], [address] [place] [address], [id number], 04/10/2024 10:07:40 diclofe nac sodium 75 mg tablet, delayed release 2023 [facility], [address] [place] [address], [id number], 02/26/2024 11:39:46 Patient TargetsNo targets recorded. Patient Instructions Encounter Date Encounter Id Patient Instructions Last Modified By Organization Details Last Modified Time 12/26/2023 [id number] viscosupplementa tion treatment* Not available 02/15/2024 11:38:55 Reason for Referral Physical Therapist Referral for Osteoarthritis of right knee joint patient to schedule Referring Physician: Tyron Pantoja, Orthopedic Surgery, Encounter Date: 04/02/2024 General Surgeon Referral for Hernia of anterior abdominal wall Please call patient to schedule. Referring Physician: Silvestre Trevino, Internal Medicine, Encounter Date: 04/10/2024 Results Created Date Observation Date Name Description Value Unit Range Abnormal Flag Note LastModifiedBy Organization Detail LastModifiedTime 12/26/19 24 XR, knee No observ ation record ed. [facility] [address], [place], [address], 12/26/2023 10:30:55 Result Notes None recorded. 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 Active treated Not Available [facility] 4 06:50:12 Anemia 705172298 Active 2020 Not Available [facility] 4 06:50:12 Hypertri glycerid emia 476130328 Active 2020 Not Available [facility] 4 06:50:12 Knee pain Completed 202002/24/2022 Not Available [facility] 3 02:52:37 Knee pain Completed 201605/17/2017 Not Available [facility] 3 02:52:37 Vitamin D deficien cy 85452150 Active Not Available [facility] 4 06:50:12 Sick sinus syndrome 53712957 Active Not Available [facility] 4 06:50:12 Neuropat hy 699062032 Active Not Available [facility] 4 06:50:12 Osteoart hritis 338445294 Active Not Available [facility] 4 06:50:12 Vertigo 335160981 Completed Not Available [facility] 3 02:52:38 Hernia of anterior abdomina l wall 681697174 Active Not Available [facility] 4 06:50:12 Obesity 411405707 Active Not Available [facility] 4 06:50:12 Hand pain 55609591 Completed Not Available [facility] 3 02:52:38 Hyperlip idemia 45104734 Active Not Available [facility] 4 06:50:12 Carpal tunnel syndrome 08551144 Active Not Available [facility] 4 06:50:12 Rheumato id arthriti s 24441865 Active Not Available [facility] 4 06:50:12 Diabetes mellitus 15446109 Active Not Available [facility] 4 06:50:12 Sleep apnea 33097002 Active Not Available [facility] 4 06:50:12 Ex-smoke r 9454036 Active Not Available [facility] 4 06:50:12 Erectile dysfunct ion 594995425 Active 2020 Not Available [facility] 4 06:50:12 Thoracic back pain 092614447 Active 2022 Not Available [facility] 4 06:50:12 Fracture of thoracic spine 177145291 Active 2022 Not Available [facility] 4 06:50:12 Acute bronchit is 52423038 Active 2022 Not Available [facility] 4 06:50:12 Nausea 322235254 Active 2023 Jenni Warner MA null, [place] [facility] 4 15:44:22 Acute sinusiti s 34731680 Active 2023 Silvestre Trevino MD [address] [facility] [address], [place], [address] , [facility] 4 10:28:46 Pain of right knee joint 85242652656 4100 Active 2023 Silvestre Trevino MD [address] [facility], [place], [address] , [facility] - [facility] 4 10:46:05 Osteoart hritis of right knee joint 08676762333 9100 Active 2023 Farida Kumar null, [employer] [facility] 4 10:03:29 Sebaceou s cyst of skin 380831067 Active 2024 Svetlana Cuello null, [place] [facility] 09:57:38 Notes:Some problems listed i n Documents: #[id number], #[id number] could not be added to this patient's chart. Please review these documents and add these problems to the patient's chart manually as needed. Problem Notes None recorded. Procedures Surgical History Date Name Laterality Status Provider Name and Address Organization Details Recorded Time Pacemaker completed 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[place] [facility] 12/26/2023 09:47:06 Hernia Repair completed 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[place] [facility] 12/26/2023 09:47:16 Imaging Results Imaging Date Name Status LastModified by Organiz ation Details LastModified Time 12/26/2023 XR, knee completed [facility] [address], [place], [address], 12/26/2023 10:30:55 Procedure Notes None recorded. Medical Equipment None Reported. Medications Name Sig Start Date Stop Date Status Note LastModified by Organization Details LastModified Time cyclobenz aprine 10 mg tablet Take 1 tablet 3 times a day by oral route as needed. 04/12 completed Not Available Not Available Not Available amoxicill in 500 mg capsule TAKE 1 CAPSULE BY MOUTH EVERY 8 HOURS 12/25 completed Not Available Not Available Not Available Augmentin 875 mg-125 mg tablet Take 1 tablet every 12 hours by oral route. active Not Available Not Available No t Available prednison e 10 mg tablet TAKE 1 TABLET BY MOUTH THREE TIMES DAILY FOR 3 DAYS AND THEN 1 TWICE DAILY FOR 2 DAYS AND THEN 1 ONCE DAILY FOR 1 DAY 04/10 completed Not Available Not Available Not Available doxycycli ne hyclate 100 mg capsule Take 1 capsule twice a day by oral route. active Not Available Not Available No t Available clindamyc in HCl 300 mg capsule TAKE 1 CAPSULE BY MOUTH THREE TIMES DAILY 10/23 completed Not Available Not Available Not Available sildenafi l 50 mg tablet TAKE ONE TABLET BY MOUTH APPROXIM ATELY ONE HOUR BEFORE SEXUAL ACTIVITY . DO NOT USE MORE THAN ONE DOSE DAILY 10/23 completed Not Available Not Available Not Available azithromy david 250 mg tablet TAKE 2 TABLETS BY MOUTH ON DAY 1 AND THEN TAKE 1 TABLET BY MOUTH ONCE A DAY ON DAY 2 THROUGH DAY 5 10/14 completed Not Available Not Available Not Available aspirin 325 mg tablet TAKE 1 TABLET BY MOUTH ONCE DAILY active Not Available Not Available No t Available glyburide 5 mg tablet TAKE 2 TABLETS BY MOUTH TWICE DAILY active Dr.Sandu Sorenson Not Available Not Available Not Available ibuprofen 800 mg tablet TK 1 T PO TID WF 10/15 completed Not Available Not Available Not Available benzonata te 200 mg capsule Take 1 capsule 3 times a day by oral route. 12/12 completed Not Available Not Available Not Available hydrocodo ne 5 mg-acetam inophen 325 mg tablet TAKE 1 TABLET BY MOUTH EVERY 8 HOURS 12/25 completed Not Available Not Available Not Available meloxicam 15 mg tablet TAKE 1 TABLET BY MOUTH ONCE DAILY 10/23 completed Not Available Not Available Not Available FreeStyle Lancets 28 gauge USE 1 LANCET TO CHECK GLUCOSE TWICE DAILY 10/23 completed Not Available Not Available Not Available lisinopri l 20 mg tablet TAKE 1 TABLET BY MOUTH DAILY active Not Available Not Available No t Available prednison e 20 mg tablet TAKE 2 TABLETS BY MOUTH ONCE DAILY FOR 5 DAYS 12/25 completed Not Available Not Available Not Available fluoroura cil 5 % topical cream 2024 active Not Available Not Available Not Avai lable prednison e 5 mg tablet active Not Available Not Available Not Available pioglitaz one 45 mg tablet TK 1 T PO QD active Dr.Sandu Sorenson Not Available Not Available Not Available acetamino phen 300 mg-codein e 30 mg tablet TAKE 1 TABLET BY MOUTH EVERY 6 HOURS NEEDED (MAY TAKE 1-2 TABS DIRECTED ) 12/25 completed Not Available Not Available Not Available amlodipin e 5 mg tablet 10/21 completed Not Available Not Available Not Available tramadol 50 mg tablet TAKE 1 TABLET BY MOUTH EVERY 6 HOURS NEEDED FOR PAIN active Not Available Not Available No t Available simvastat in 40 mg tablet TAKE 1 TABLET DAILY active Not Available Not Available No t Available glimepiri de 2 mg tablet TK 1 T PO QD 10/15 completed Not Available Not Available Not Available prednison e 10 mg tablets in a dose pack Take 1 tab by mouth, 3 times a day for 3 daysTake 1 tab by mouth 2 times a day for 2 daysTake 1 tab by mouth once a day for 1 day 04/10 completed Not Available Not Available Not Available meloxicam 7.5 mg tablet qd 10/15 completed Not Available Not Available Not Available losartan 100 mg-hydroc hlorothia zide 25 mg tablet Take 1 tablet by mouth once daily active Not Available Not Available No t Available oxycodone -acetamin ophen 5 mg-325 mg tablet TAKE 1 TABLET BY MOUTH EVERY 6 HOURS NEEDED FOR PAIN 12/25 completed Not Available Not Available Not Available ofloxacin 0.3 % ear drops 04/12 completed Not Available Not Available Not Available Marcaine 0.5 % (5 mg/mL) injection solution Take 20 mg by injectio n route. 04/10 completed Not Available Not Available Not Available methotrex ate sodium 2.5 mg tablet TAKE 7 TABLETS BY MOUTH ONCE A WEEK active Not Available Not Available No t Available Kenalog 10 mg/mL suspensio n for injection Take 20 mg by injectio n route. 04/10 completed [facility]: [phone] Not Available Not Available Not Available meclizine 25 mg tablet TAKE 1 TABLET BY MOUTH THREE TIMES DAILY NEEDED active Not Available Not Available No t Available amlodipin e 10 mg tablet Take 1 tablet by mouth once daily 04/10 completed Not Available Not Available Not Available benzonata te 100 mg capsule TAKE 1 CAPSULE BY MOUTH TWICE DAILY NEEDED FOR COUGH 12/25 completed Not Available Not Available Not Available doxycycli ne monohydra te 100 mg capsule TAKE 1 CAPSULE BY MOUTH EVERY 12 HOURS FOR 7 DAYS 12/25 completed Not Available Not Available Not Available cephalexi n 500 mg capsule TAKE 1 CAPSULE BY MOUTH THREE TIMES DAILY FOR 5 DAYS active Not Available Not Available No t Available metformin 1,000 mg tablet TAKE 1 TABLET TWICE A DAY active Not Available Not Available No t Available triamcino lone acetonide 0.1 % topical ointment APPLY OINTMENT TOPICALL Y EVERY 12 HOURS NEEDED APPLY SPARINGL Y 10/23 completed Not Available Not Available Not Available glimepiri de 4 mg tablet TAKE 1 TABLET BY MOUTH TWICE DAILY WITH BREAKFAS T 04/10 completed Not Available Not Available Not Available gabapenti n 300 mg capsule TAKE 1 CAPSULE BY MOUTH AT BEDTIME 04/10 completed Not Available Not Available Not Available lisinopri l 20 mg-hydroc hlorothia zide 25 mg tablet 02/14 completed Not Available Not Available Not Available diclofena c sodium 75 mg tablet,de layed release Take 1 tablet twice a day by oral route. active Not Available Not Available No t Available folic acid 1 mg tablet TAKE 1 TABLET BY MOUTH ONCE DAILY active Not Available Not Available No t Available hydroxyzi ne HCl 25 mg tablet 02/14 completed Not Available Not Available Not Available hydrochlo rothiazid e 25 mg tablet TK 1 T PO QD active Not Available Not Available No t Available ergocalci ferol (vitamin D2) 1,250 mcg (50,000 unit) capsule Take 1 capsule every week by oral route. 10/23 completed Not Available Not Available Not Available levofloxa david 750 mg tablet TAKE 1 TABLET BY MOUTH ONCE DAILY FOR 10 DAYS 10/14 completed Not Available Not Available Not Available methylpre dnisolone 4 mg tablets in a dose pack TAKE DIRECTED YOU MAY USE A REFILL IF YOU HAVE FLARES IN THE FUTURE 02/17 completed Not Available Not Available Not Available albuterol sulfate HFA 90 mcg/actua tion aerosol inhaler INHALE 2 PUFFS BY MOUTH EVERY 4 HOURS NEEDED 2023 active Not Available Not Available Not Avai lable doxycycli ne hyclate 100 mg tablet TAKE 1 TABLET BY MOUTH TWICE DAILY FOR 10 DAYS 12/25 completed Not Available Not Available Not Available amoxicill in 500 mg-potass ium clavulana te 125 mg tablet 04/12 completed Not Available Not Available Not Available olmesarta n 40 mg tablet TAKE 1 TABLET BY MOUTH EVERY DAY 10/20 completed only if Losartan /hctz is unavail Not Available Not Available Not Available ezetimibe 10 mg tablet TAKE 1 TABLET BY MOUTH ONCE DAILY active Not Available Not Available No t Available cyclobenz aprine 5 mg tablet TK 1 T PO HS PRF MUSCLE SPASMS 10/18 completed Not Available Not Available Not Available rosuvasta tin 40 mg tablet TAKE 1 TABLET BY MOUTH ONCE DAILY active Not Available Not Available No t Available Cialis 10 mg tablet Take 1 tablet every day by oral route as needed. active Not Available Not Available No t Available metoprolo l tartrate 25 mg tablet active Not Available Not Available Not Available Euflexxa 10 mg/mL (mw 2.4-3.6 million) intra-art icular syringe active Not Available Not Available Not Available ranolazin e ER 500 mg tablet,ex tended release,1 2 hr TAKE 1 TABLET BY MOUTH TWICE DAILY active Not Available Not Available No t Available BD Ultra-Fin e Short Pen Needle 31 gauge x 5/16 U BID 09/11 completed Not Available Not Available Not Available Januvia 100 mg tablet TK 1 T PO QD 10/18 completed Not Available Not Available Not Available cholecalc iferol (vitamin D3) 1,250 mcg (50,000 unit) capsule TK 1 C PO ONCE WEEKLY 04/12 completed Not Available Not Available Not Available Humalog Mix 75-25 KwikPen U-100 insulin 100 unit/mL subcutane ous pen INJ 42 TO 50 UNITS SC QAM AND 50 UNITS QPM WITH MEALS 10/23 completed Not Available Not Available Not Available Humalog KwikPen (U-100) Insulin 100 unit/mL subcutane ous MAX 60 UNITS PER DAY, USE DIRECTED PER SLIDING SCALE active Not Available Not Available No t Available FreeStyle Barnum Lite kit USE UTD 02/17 completed Not Available Not Available Not Available Travel Sickness (meclizin e) 25 mg chewable tablet TAKE 1 TABLET BY MOUTH 3 TIMES A DAY NEEDED 04/12 completed Not Available Not Available Not Available Accu-Chek FastClix Lancing Device U TO CHECK BLOOD SUGAR TID 05/17 completed Not Available Not Available Not Available OneTouch Verio test strips USE 1 STRIP TO CHECK GLUCOSE TWICE DAILY active Not Available Not Available No t Available Qsymia 3.75 mg-23 mg capsule, extended release TK ONE C PO QD active Not Available Not Available No t Available Qsymia 7.5 mg-46 mg capsule, extended release TAKE ONE CAPLET BY MOUTH QD 02/21 completed Not Available Not Available Not Available diclofena c 20 mg/gram/a ctuation (2 %) topical soln metered-d ose pump 12/25 completed Not Available Not Available Not Available Tanzeum 30 mg/0.5 mL subcutane ous pen injector 100 units daily 02/14 completed Not Available Not Available Not Available Bydureon 2 mg/0.65 mL subcutane ous pen injector INJ 1 PEN BY SQ ROUTE ONCE Q 7 DAYS 10/23 completed Not Available Not Available Not Available Jardiance 10 mg tablet TK 1 T PO QD IN THE MORNING 10/14 completed Endo Not Available Not Available Not Available Jardiance 25 mg tablet TAKE 1 TABLET BY MOUTH ONCE DAILY active Not Available Not Available No t Available Trulicity 1.5 mg/0.5 mL subcutane ous pen injector INJECT 1 SYRINGE SUBCUTAN EOUSLY ONCE A WEEK active Not Available Not Available No t Available Tresiba FlexTouch U-200 insulin 200 unit/mL (3 mL) subcutane ous pen INJECT 75 UNITS SUBCUTAN EOUSLY ONCE DAILY 04/10 completed Not Available Not Available Not Available Tresiba FlexTouch U-100 insulin 100 unit/mL (3 mL) subcutane ous pen Inject 90 units every day by subcutan eous route. 10/14 completed Not Available Not Available Not Available OneTouch Verio Flex Meter active Not Available Not Available Not Available Humulin R U-500 (Conc) Insulin Kwikpen 500 unit/mL (3 mL) subcutane ous INJECT 90 UNITS SUBCUTAN EOUSLY BEFORE BREAKFAS T AND 50 UNITS BEFORE DINNER. IF SUGAR 150-200= ADD 5 UNITS. 201-250= ADD 10 UNITS, 251-300= ADD 15 UNITS. MAX DAILY QIQU=225 UNITS. 04/10 completed Not Available Not Available Not Available Ozempic 1 mg/dose (2 mg/1.5 mL) subcutane ous pen injector 12/25 completed Not Available Not Available Not Available Accu-Chek Fastclix Lancet Drum USE TO CHECK BLOOD SUGAR BID 06/17 completed Not Available Not Available Not Available BD Shelby 2nd Gen Pen Needle 32 gauge x USE 4 TIMES DAILY active Not Available Not Available No t Available OneTouch Delica Plus Lancet 33 gauge USE 1 LANCET TO CHECK GLUCOSE TWICE DAILY active Not Available Not Available No t Available Nexletol 180 mg tablet TAKE 1 TABLET BY MOUTH ONCE DAILY 04/10 completed Not Available Not Available Not Available FreeStyle Yaz 2 Sensor kit USE DIRECTED active Not Available Not Available No t Available Afluria Qd 2019- (36 mos up)(PF)60 mcg (15 mcg x4)/0.5 mL IM syringe active Not Available Not Available Not Available Space Chamber with Large Mask USE DIRECTED 12/25 completed Not Available Not Available Not Available Trulicity 3 mg/0.5 mL subcutane ous pen injector INJECT 3 MG ONCE A WEEK active Not Available Not Available No t Available Trulicity 4.5 mg/0.5 mL subcutane ous pen injector INJECT 4.5MG (0.5ML) SUBCUTAN EOUSLY WEEKLY FOR 3 MONTHS 06/29 completed Not Available Not Available Not Available Ozempic 2 mg/dose (8 mg/3 mL) subcutane ous pen injector INJECT 2 MG SUBCUTAN EOUSLY ONCE A WEEK 04/10 completed Not Available Not Available Not Available Mounjaro 5 mg/0.5 mL subcutane ous pen injector 04/10 completed Not Available Not Available Not Available Toshia Aspirin 325 mg tablet,de layed release TAKE 1 TABLET BY MOUTH ONCE DAILY 10/23 completed Not Available Not Available Not Available Mounjaro 2.5 mg/0.5 mL subcutane ous pen injector active Not Available Not Available Not Available FreeStyle Yaz 3 [place] USE DIRECTED active Not Available Not Available No t Available FreeStyle Yaz 3 Plus Sensor device USE DIRECTED active Not Available Not Available No t Available Vitals Date Recorded Body height Body mass index (BMI) Body weight Provider Name and Address Organization Details Last Updated DateTime 12/26/2023 165.1 cm 39.9 kg/m2 562520.17 g 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[employer] 12/26/2023 09:42:20 Date Recorded Body height Body mass index (BMI) Body weight Provider Name and Address Organization Details Last Updated DateTime 02/26/2024 165.1 cm 39.4 kg/m2 562994.39 g 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[employer] 02/26/2024 11:17:33 Date Recorded Body height Body mass index (BMI) Body weight Provider Name and Address Organization Details Last Updated DateTime 03/04/2024 165.1 cm 38.3 kg/m2 368588.25 g 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[employer] [facility] [employer] 03/04/2024 10:48:01 Date Recorded Body height Body mass index (BMI) Body weight Provider Name and Address Organization Details Last Updated DateTime 04/02/2024 165.1 cm 39.4 kg/m2 198822.39 g 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 68 g 98 [degF] 97 % 97 % 61 /min 142 mm[Hg] 78 mm[Hg] Svetlana griffin SD [facility] [employer] 09:57:11 Social History Question Answer Notes LastModified by Organizat ion Details LastModified Time Tobacco Smoking Status Former Smoker Not Available [facility] 05/25/2022 02:44:06 Do You Have An Advance Directive? No [id number] Information not available 05/25/2022 What Is Your Level Of Alcohol Consumption? 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 16+yearssince lastcigarette 15 Yrs Ago Information not available 12/26/2023 What Was The Date Of Your Most Recent Tobacco Screening? 02/25/2022 [id number] Information not available 05/25/2022 What Is Your Current Pack Years? 20-29packyear s [id number] Information not available 05/25/2022 What Is Your Relationship Status? [id number] Information not available 05/25/2022 Sex: Unknown Functional Status None recorded. Mental Status None recorded. Family History Nothing Reported. Medical History Condition Response MRSA N SLEEP APNEA N ALLERGIES/HAYFEVER N LUNG DISEASE/DISORDER N INSOMNIA N COPD N RADIATION / CHEMOTHERAPY N HIGH CHOLESTEROL / HYPERLIPIDEMIA N HYPERTHYROIDISM N BLOOD DISEASES N EAR OR HEARING PROBLEMS N HYPOTHYROIDISM N DEPRESSION (INCLUDING POST ) N HAVE YOU BEEN HOSPITALIZED OR SEEN IN [facility] ER IN THE PAST YEAR ? N STROKE/TIA N ULCERS N OBESITY N ANEURYSM N HISTORY WITH COMPLICATIONS WITH ANESTHES IA ? N ARTHRITIS Y USE OF BLOOD THINNERS N NO SIGNIFICANT PAST MEDICAL HISTORY N DIABETES, TYPE Y PARATHYROID DISEASE N ENT N SEASONAL ALLERGIES N HEARTBURN / REFLUX N HEPATITIS / LIVER DISEASE N SLEEP DISORDER N SEIZURES/EPILEPSY N HEADACHES/MIGRAINES Y CHF N PACEMAKER Y DIZZINESS Y HEART DISEASE/HEART PROBLEMS N AIDS/HIV N FRACTURES N HYPERTENSION Y CANCER: SPECIFY N TOURETTE'S N BLOOD TRANSFUSION N ANEMIA/BLOOD DISORDER N ANESTHESIA COMPLICATIONS N CHRONIC EAR INFECTIONS N TUBERCULOSIS N Immunizations Vaccine Type Date Status Note Provider Nam e and Address Organization Details Recorded Time SARS-COV-2 (COVID-19) vaccine, UNSPECIFIED 1 completed Not Available [facility] 04/04/2023 06:50:13 SARS-COV-2 (COVID-19) vaccine, UNSPECIFIED 1 completed Not Available [facility] 04/04/2023 06:50:13 Influenza, split virus, quadrivalent, preservative 0 completed Not Available [facility] 04/04/2023 06:50:13 influenza, unspecified formulation 9 completed Not Available [facility] 04/04/2023 06:50:13 Td (adult), 5 Lf tetanus toxoid, preservative free, adsorbed 8 completed Not Available [facility] 04/04/2023 06:50:13 Influenza, high-dose, quadrivalent, PF 1 completed Not Available [facility] 04/04/2023 06:50:13 Td (adult), 2 Lf tetanus toxoid, preservative free, adsorbed 8 completed Not Available [facility] 04/04/2023 06:50:13 Influenza, high-dose, trivalent, PF 7 completed Not Available [facility] 04/04/2023 06:50:13 Influenza, split virus, quadrivalent, preservative 6 completed Not Available [facility] 04/04/2023 06:50:13 pneumococcal polysaccharide PPV23 6 completed Not Available [facility] 04/04/2023 06:50:13 Influenza, high-dose, trivalent, PF 5 completed Not Available [facility] 04/04/2023 06:50:13 Pneumococcal conjugate PCV 13 9 completed Not Available [facility] 04/04/2023 06:50:13 Influenza, split virus, quadrivalent, preservative 9 completed Not Available [facility] 04/04/2023 06:50:13 Past Encounters Encounter ID Performer Location Encounter Start Date Encounter Closed Date Diagnosis/Indication Diagnosis SNOMED-CT Code Diagnosis ICD10 Code Diagnosis Note [id number] [facility] [address] [facility] [place] [address] 06/17/2020 00:00:00 06/17/2020 10:51:26 [id number] [facility] [place] [address] [facility] [address] [place] [address] 08/13/2020 00:00:00 08/13/2020 11:14:49 [id number] [facility] Internal Med [address] [place] [address] 10/14/2020 00:00:00 10/14/2020 11:40:24 [id number] [facility] [address] [place] [address] 02/17/2021 00:00:00 02/17/2021 14:56:49 [id number] [facility] [address] [place] [address] 06/17/2021 00:00:00 06/17/2021 11:18:45 [id number] [facility] [address] [place] [address] 07/21/2021 00:00:00 07/21/2021 14:57:52 [id number] [facility] [address] [place] [address] 10/22/2021 00:00:00 10/22/2021 11:05:52 [id number] [facility] Internal Med [address] [place] [address] 02/25/2022 00:00:00 02/25/2022 11:10:23 [id number] Silvestre Trevino MD [facility] Internal [facility] [address] [facility] [place] [address] 06/29/2022 10:23:36 06/29/2022 11:02:14 Benign essential hypertension 6561275 I10 under control Diabetes mellitus 256679 09 E11.9 under control Hyperlipidemia 65259647 E78.5 labs good Obesity 029073468 E66.9 advised to lose weight Rheumatoid arthritis 698 86678 M06.9 seeing rheumatolo gist and is stable Erectile dysfunction 860 607218 F52.21 Viagra prn Anemia 856835562 D64.9 now nl Sick sinus syndrome 3608 3008 I49.5 s/p pace maker Sleep apnea 29368754 G47 .30 CPAP compliant Hernia of anterior abdominal wall 214278865 K43.9 seen surgeon, Vitamin D deficiency 347 74206 E55.9 otc Ex-smoker 4060506 Z87.89 1 [id number] Nissa Robert [facility] Internal [facility] [address] [facility] [place] [address] 10/27/2022 10:04:26 10/27/2022 11:24:37 Benign essential hypertension 9132790 I10 under control Diabetes mellitus 708719 09 E11.9 under control Hyperlipidemia 52399943 E78.5 labs good Obesity 418691024 E66.9 advised to lose more Rheumatoid arthritis 698 95357 M06.9 seeing rheumatolo gist and is stable Erectile dysfunction 860 146707 F52.21 Viagra prn Anemia 323750783 D64.9 now nl Sick sinus syndrome 3608 3008 I49.5 s/p pace maker Sleep apnea 70471106 G47 .30 CPAP compliant Hernia of anterior abdominal wall 038769809 K43.9 seen surgeon, Vitamin D deficiency 347 17498 E55.9 otc Ex-smoker 0674970 Z87.89 1 Adult heal th examination 377560021 Z00.00 Thoracic back pain 99375 8004 M54.6 may need [place] [id number] Silvestre Trevino MD [facility] Internal [facility] [address] [facility] [place] [address] 03/01/2023 09:51:14 03/01/2023 10:30:33 Benign essential hypertension 9824034 I10 under control Diabetes mellitus 593142 09 E11.9 getting better Hyperlipidemia 94807631 E78.5 labs good Obesity 129620836 E66.9 advised to lose more Rheumatoid arthritis 698 82312 M06.9 seeing rheumatolo gist and is stable Erectile dysfunction 860 130768 F52.21 Viagra prn Anemia 544034800 D64.9 now nl Sick sinus syndrome 3608 3008 I49.5 s/p pace maker Sleep apnea 08415794 G47 .30 CPAP compliant Hernia of anterior abdominal wall 338344119 K43.9 seen surgeon, Vitamin D deficiency 347 11456 E55.9 otc Ex-smoker 6781480 Z87.89 1 Adult heal th examination 239665177 Z00.00 Thoracic back pain 62506 8004 M54.6 getting better Acute bronchitis 5059372 2 J20.9 Screening for malignant neoplasm of prostate 737472313 Z12.5 [id number] Silvestre Trevino MD [facility] Internal Med [facility] [address] [facility] [place] [address] 08/09/2023 10:08:15 08/09/2023 10:51:41 Benign essential hypertension 5877346 I10 under control Diabetes mellitus 227418 09 E11.9 getting better, watch diet, lose weight Hyperlipidemia 23729975 E78.5 under control Obesity 481877726 E66.9 advised to lose more Rheumatoid arthritis 698 39020 M06.9 seeing rheumatolo gist Erectile dysfunction 860 564150 F52.21 Viagra prn Anemia 769345029 D64.9 improved Sick sinus syndrome 3608 3008 I49.5 s/p pace maker Sleep apnea 17367186 G47 .30 CPAP compliant Hernia of anterior abdominal wall 443952037 K43.9 seen surgeon, watching Vitamin D deficiency 347 26714 E55.9 otc Ex-smoker 2372240 Z87.89 1 Adult heal th examination 388563171 Z00.00 Colonoscop y- 02/24/2014 PSA- 03/02/2023 FLU- 12/2022 (per pt)Pneumov ax - 02/15/2016 Prevnar - 02/19/2019 COVID- Has had 5 vacc Thoracic back pain 80018 8004 M54.6 better [id number] Silvestre Trevino MD [facility] [address] [place] [address] 12/13/2023 09:54:43 12/13/2023 10:51:39 Benign essential hypertension 7862279 I10 watch Diabetes mellitus 104522 09 E11.9 getting better, Hyperlipidemia 80609358 E78.5 under control Obesity 154254294 E66.9 advised to lose more Rheumatoid arthritis 698 98450 M06.9 seeing rheumatolo gist Erectile dysfunction 860 587604 F52.21 Viagra prn Anemia 668513801 D64.9 improved Sick sinus syndrome 3608 3008 I49.5 s/p pace maker Sleep apnea 90625198 G47 .30 CPAP compliant Hernia of anterior abdominal wall 221524825 K43.9 seen surgeon, watching Vitamin D deficiency 347 46447 E55.9 otc Ex-smoker 5868012 Z87.89 1 Thoracic back pain 76007 8004 M54.6 better Adult heal th examination 109370921 Z00.00 Colonoscop y- 02/24/2014 PSA- 03/02/2023 FLU- 12/2022 (per pt)Pneumov ax - 02/15/2016 Prevnar - 02/19/2019 COVID- Has had 5 vacc Acute sinusitis 91582691 J01.90 mucinex Sebaceous cyst of skin 276294466 L72.3 Pain of ri ght knee joint 7008010551 08889 M25.869 [id number] LUCIEN [facility] [place] [address] [place] [address] 12/26/2023 09:24:46 12/26/2023 10:10:23 Pain of right knee joint 5702914371 52802 M25.561 Osteoarthr itis of right knee joint 2018945770 35755 M17.11 [id number] LUCIEN Wade [facility] [place] [address] [place] [address] 02/26/2024 11:14:57 02/26/2024 11:27:48 Osteoarthritis of right knee joint 4218354500 61321 M17.11 Pain of ri ght knee joint 5771698299 85270 M25.497 [id number] LUCIEN Wade [facility] [place] [address] [place] [address] 03/04/2024 10:45:14 03/04/2024 11:13:43 Osteoarthritis of right knee joint 4794705522 10646 M17.11 Pain of ri ght knee joint 6276673707 24737 M25.688 [id number] LUCIEN Wade S[facility] [place] [address] [place] [address] 04/02/2024 15:24:42 04/02/2024 15:37:52 Osteoarthritis of right knee joint 1103236868 87844 M17.11 Pain of ri ght knee joint 8962418721 55875 M25.932 [id number] Silvestre Trevino MD [facility] Internal Med [address] [place] [address] 04/10/2024 09:32:36 04/10/2024 10:48:46 Benign essential hypertension 8309601 I10 watch, same meds Diabetes mellitus 717862 09 E11.9 seeing endo Hyperlipidemia 61445070 E78.5 under control Obesity 250844683 E66.9 advised to lose more Rheumatoid arthritis 698 27483 M06.9 seeing rheumatolo gist Erectile dysfunction 860 061966 F52.21 Viagra prn Anemia 246145644 D64.9 improved Sick sinus syndrome 3608 3008 I49.5 s/p pace maker Sleep apnea 47915171 G47 .30 CPAP compliant Hernia of anterior abdominal wall 715454545 K43.9 getting some pain Vitamin D deficiency 347 36882 E55.9 otc Ex-smoker 9094295 Z87.89 1 Thoracic back pain 98679 8004 M54.6 better Adult heal th examination 604198085 Z00.00 Colonoscop y- 02/24/2014 PSA- 03/02/2023 FLU- 12/2022Pneum ovax 02/15/2016 Prevnar 13- 02/19/2019 YENIFER- Has had 5 vacc Screening for malignant neoplasm of prostate 280785302 Z12.5 Health Concerns Section Related Observation LastModified by Organization Detai ls LastModified Time None Recorded Concern Status LastModified by Organization Details LastModified Time None Recorded Advance Directives Directive N: Payers Encounter Date Sequence Insurance Name Policy Number Policy Uribe Covered Member ID Uribe Member ID Guarantor Name 12/26/2023 1 [place] [id number] A Atilio Peres [id number] 18 Atilio Peres 02/26/2024 1 [place] [id number] A Atilio Peres [id number] 18 Atilio Peres 03/04/2024 1 [place] [id number] A Atilio Peres [id number] 18 Atilio Peres 04/02/2024 1 [place] [id number] A Atilio Peres [id number] 18 Atilio Peres 04/10/2024 1 [place] [id number] A Atilio Peres [id number] 18 Atilio Peres Notes Date Note Type Note Provider Name and Address Organization Details Recorded Time 12/26/2023 text/html The patient is a 63-year-old male who presents with right knee pain this been ongoing for many years. He states he has rheumatoid arthritis but he also has primary osteoarthritis in his right knee. 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 He comes in today to talk about other treatment options including knee replacement. He states he has aching pain medially he is on his feet for 12 hours a day at his job. He states that this aggravates his knee he does take methotrexate and also has taken diclofenac and meloxicam previously which really do not give him much relief. He has throbbing and aching he can not squat kneel go up and down stairs well any twisting or turning of the knee causes significant medial-sided knee pain states the pain is about an 8 on a scale of 1-10 most days. He has been trying to lose weight he is down to 240 lb his BMI is now 39.9 his height is 5 ft 5 in tall. Despite conservative measures his symptoms continue he denies any specific recent trauma or injury to the right knee many years ago he had a laceration to the anterior knee but no fractures. He comes in today for initial evaluation treatment of his right knee pain as described. He denies any loss of motion he has good function and strength his main complaint is pain medially. A new past medical history sheet was reviewed and signed on the intake sheet of today's date drug allergies current medications family social history previous surgical history 10 point review of systems was reviewed and discussed in detail today with the patient. LUCIEN Wade [address], [place], [address], [employer] 12/26/2023 10:31:38 02/26/2024 text/html The patient retu rns for Euflexxa injection number 1 right knee he brings the medication from the specialty pharmacy. The patient has severe primary osteoarthritis with ntyq-jd-qrqv changes in the medial compartment and also large osteophyte formation around the patellofemoral articulation with severe changes here also. Cortisone 6 weeks ago gave him some mild relief not really the relief he is looking for. 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 He would now like to try a round of gel shots. He states he is on his feet quite a bit each day at work he states he also takes diclofenac chronically he would like a refill on this. He describes his pain at a 9 on a scale of 1-10 most days. Pain is worse with activity somewhat relieved by rest. He denies any effusion no erythema heat or other signs of infection he would like to try the gel shot series now he knows that his only really good solution would be total knee arthroplasty but he is trying to avoid that. He would rather wait a few years before he has his knee replaced. LUCIEN Wade [address], [place], [address], [employer] 02/26/2024 11:33:39 03/04/2024 text/html patient returns for Euflexxa injection number 2 right knee he brings the medication from the specialty pharmacy. He has severe primary osteoarthritis with zbrb-qa-plaf changes in the medial compartment and also large osteophyte formation around the patellofemoral articulation with severe changes here also. He is already starting to get some good relief from the 1st injection last week he is quite pleased already. He denies any erythema effusion or signs of infection walking more comfortably he comes in today for the 2nd injection right knee. LUCIEN Wade [address], [place], [address], [employer] 03/04/2024 11:00:47 04/02/2024 text/html patient returns for Euflexxa injection number 3 right knee. The patient has severe osteoarthritis with bfpj-rb-ocna changes in medial compartment. He states he really has not gotten much relief from the 1st 2 rounds of injections he brings the injection from the specialty pharmacy. He had to delay the 3rd injection by about a month because he was leaving town so he is finally coming in for the last injection. I have advised him to give it a little more time after last injected into see how it works. If this does not work he has gotten better relief from cortisone injections previously by his report it has been about 9 months since his last cortisone injection. 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 DM- watching diet, Accu check <200A1c- 7.8 [facility], seeing new milvia Ash, has LibreNo neuropathyDM eye exam yearly- 2023Meds- Jardiance 25 mg daily, Metformin 1,000 bid , Mounjaro 2.5 mg weekly, Humulin R ( was on tresiba and ozempic )HTN- under control,Meds- Losartan 100 mg - HCTZ 25 mg daily, Amlodipine 10 mg dailyHyperlipidemia- stable with meds, labs 11/16 , Humulin RMeds- Simvastatin 40 mg dailyObesity- advised to lose , has gained 14 lbsSick sinus syndrome s/p pace maker, no symptoms, cardiology dr fuentes, gets pace maker , gets it checked regularlyEx - smoker , quit many years agoRheumatoid arthritis-- seeing [facility] Dr Mackey- Methotrexate 2.5 mg 7 tabs every 7 days, Meloxicam 15 mg dailyVit D-- on otcSleep apnea- on cpap, compliant , gets good benefit from itBack pain is better, had PT and steroid shot DR Hunt pain- x rays showed arthritis, seen ortho, Dr Hampton had steroid shots in the knee and shoulder and better,Vertigo- on meclizine prn , CT brain neg, seen ENT, had PT in the past better,Anemia- stable Right knee pain , has seen ortho dr hampton, had shots and better Silvestre Trevino MD [address] [place] [address], [facility] [address], [place], [address], [place] [facility] 04/10/2024 10:45:45
--- OUTSIDE RECORDS SUMMARY | 2024-05-02 09:30 | XMS_ITS | Encounter Summary ---
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 Name Role Phone Alphonso Echols MD Primary Care Provider [phone] Encounter Details Date Type Department Care Team (Late st Contact Info) Description 05/29/2017 Orders Only [facility] ProviderSandrita MD [address] [place] [address] Social History Tobacco Use Types Packs/Day Years Used Date Smoking Tobacco: Former Smokeless Tobacco: Never Comments:Smoking History Pac ks/day: 1 Packs Alcohol Use Standard Drinks/Week Comments Yes 0 (1 standard drink = 0.6 oz pur e alcohol) Sex and Gender Information Value Date Recorded Sex Assigned at Not on file 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 Historical Provider LAB BLOOD ORDERABLES Sakina l Result documented in this encounter Visit Diagnoses Not on filedocumented in this encounter Care Teams Jet Dyeing Machine Operator Relationship Specialty Start Date End Date Alphonso Echols MD PCP - General Internal Medicine 05/29/17 documented as of this encounter
--- OUTSIDE RECORDS SUMMARY | 2024-05-02 09:30 | XMS_ITS | Clinical Summary ---
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 Gender Identity Not on file Sexual Orientation Not on file Plan of Treatment Health Maintenance Due Date Last Done Comments Hepatitis C Virus (HCV) Screening 1960 TdaP Immunization 1960 Colonoscopy 11/08/2004 Colorectal Cancer Screening 11/08/2004 Cologuard 11/08/2009 Immunochemical Fecal Occult Blood 11/08/2009 Zoster Immunization (1 of 2) 11/08/2009 PSA Discussion 11/08/2014 Influenza Immunization (#1) 11/26/20232 06/2020, 02/04/2020, 02/19/2019, Additional history exists SARS-COV-2 Immunization ( season) 2023 02/11/2021, 06/30/2020, 06/09/2020 Pneumococcal Immunization (50+ years) (3 of 3 - PCV20 or PCV21) 02/20/2024 02/19/2019, 02/15/2016 Respiratory Syncytial Virus (RSV) Immunization (Adult) (1 - 1-dose 75+ series) 11/08/2034 DTaP/Tdap/Td Immunization Discontinued 05/17/2017 Pneumococcal Immunization Combined Discontinued 02/19/2019, 02/15/2016 Hepatitis B Immunization Aged Out No longer eligible based on patient's age to complete this topic Meningococcal Immunization (ACWY) Aged Out No longer eligible based on patient's age to complete this topic Rotavirus Immunization Aged Out No lo nger eligible based on patient's age to complete this topic
--- OUTSIDE RECORDS SUMMARY | 2024-05-02 09:30 | XMS_ITS | Encounter Summary ---
Author Organization [facility] Address [address] [place] [address] Care Team Providers Care Manager Payment Name Role Phone Conversion, History Primary Care Provider Ciara dillon Encounter Details Date Type Department Care Team (Late st Contact Info) Description 09/25/[address] 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 No / Unsure 09/25/2021 9:02 AM CDT documented as of this encounter Plan of Treatment Not on file documented as of this encounter Procedures Procedure Name Priority Date/Time Associated Diagnosis Comments COVID-19 ANTIGEN Routine 09/25/2021 9:05 AM CDT documented in this encounter Results * COVID-19 ANTIGEN (09/25/2021 9:05 AM CDT) COVID-19 ANTIGEN Presumptive Negative Presumptive Negative 09/25/2021 9:31 AM CDT [facility] Upper Respiratory ANTERIOR NARES SWAB / Unknown Collection / Unknown 09/25/2021 9:05 AM CDT 09/25/2021 9:10 AM CDT Narrative [facility] - 09/25/2021 9:31 AM CDT This test has been authorized by FDA under an EUA for use by authorized laboratories; This test has been authorized only for the detection of proteins from SARS-CoV-2, not for any other viruses or pathogens; and, This test is only authorized for the duration of the declaration that circumstances exist justifying the authorization of emergency use of in vitro diagnostics for detection and/or diagnosis of the virus that causes COVID-19 under Section 564(b)(1) of the Act, 21 U.S.C. 360bbb-3(b)(1), unless the authorization is terminated or revoked sooner. Negative results should be treated as presumptive and confirmed with a molecular assay, if necessary for patient management. Tea [facility] - GENERAL ORDERAB LES Final Result [facility] CLIA# [id number] [address] [place] [address] documented in this encounter Visit Diagnoses Not on filedocumented in this encounter Care Teams Manager Payment Relationship Specialty Start Date End Date Conversion, History PCP - General 09/14/06 documented as of this encounter
--- OUTSIDE RECORDS SUMMARY | 2024-05-02 09:30 | XMS_ITS ---
Author Organization [facility] Address [address] [place] [address] Care Team Providers Care Distribution Center Administrator Name Role Phone Unavailable Unavailable Unavailable Surgery Details Not on file Complications Check Surgery Details section. Procedure Estimated Blood Loss Check Surgery Details section. Procedure Findings Check Surgery Details section. Procedure Specimens Taken Check Surgery Details section.
--- OUTSIDE RECORDS SUMMARY | 2024-05-02 09:30 | XMS_ITS | Encounter Summary ---
Author Organization [facility] Address 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 Gender Identity Not on file Sexual Orientation Not on file documented as of this encounter Plan of Treatment Not on file documented as of this encounter Procedures Procedure Name Priority Date/Time Associated Diagnosis Comments HEMOGLOBIN AND HEMATOCRIT Routine 10/06/2006 11:07 AM CDT documented in this encounter Results * HEMOGLOBIN AND HEMATOCRIT (10/06/2006 11:07 AM CDT) HEMOGLOBIN 14.6 13.6 - 16.5 g/dL INTERFACE SYSTEM HEMATOCRIT 41.0 40.0 - 48.0 % INTERFACE SYSTEM 10/06/2006 11:0 7 AM CDT us Henri Rodriguez (Excluded Provider) Vickie [facility] H[facility]AT[facility] ORDERABLES Edited INTERFACE SYSTEM Refer to clinic/hospital department documented in this encounter Visit Diagnoses Diagnosis Residual foreign body in soft tissue- Primary documented in this encounter Care Teams Textile Dyer Relationship Specialty Start Date End Date Conversion, History PCP - General 09/14/06 documented as of this encounter
--- OUTSIDE RECORDS SUMMARY | 2024-05-02 09:30 | XMS_ITS | Clinical Summary ---
Author Organization [facility] Address [address] [place] [address] Care Team Providers Care Report Clerk Name Role Phone Unavailable Primary Care Provider [...] Given: Not Answered Alcohol Use Standard Drinks/Week Comments Yes 5 (1 standard drink = 0.6 oz pur [...] 36.1 C (97 F) 03/17/2021 1:57 PM EMS DRIVER Respiratory Rate - - Oxygen Saturation - - Inhaled Oxygen Concentration - - Weight - - Height - - Body Mass Index - - Plan of Treatment Health Maintenance Due Date Last Done Comments Scaling and Root Planing 1960 Periodontal Maintenance 12/31/2021 09/30/19 22, 03/17/2021, 09/23/2020 Dental Oral Exam 04/02/2022 09/29/2021, , 09/23/2020 Dental X-Ray: Bitewings 04/02/2022 09/29/2021 Dental X-Ray: Full Mouth 09/27/2023 09/25/2020, 08/27 Dental X-Ray: Panoramic 09/27/2023 09/25/2020, 09/23 Meningococcal B Vaccine Aged Out No l onger eligible based on patient's age to complete this topic Procedures Procedure Name Priority Date/Time Associated Diagnosis Comments PERIODIC ORAL EVALUATION - ESTABLISHED PATIENT Routine 09/29/2021 9:00 AM CDT PERIO MAINTENANCE Routine 09/29/2021 9:0 0 AM CDT PANORAMIC RADIOGRAPHIC IMAGE Routine 09/23/2020 3:30 PM CDT INTRAORAL - COMPREHENSIVE SERIES OF RADIOGRAPHIC IMAGES Routine 09/23/2020 3:30 PM CDT from Last 3 Months or Most Recently Relevant to Health Maintenance [place] [address] [place] [address] AND [place] PPO
--- OUTSIDE RECORDS SUMMARY | 2024-05-02 09:30 | XMS_ITS | Encounter Summary ---
Author Organization [facility] Address [address] [place] [address] Care Team Providers Care Research Neuropsychologist Name Role Phone Alphonso Echols MD Primary Care Provider Encounter Details Date Type Department Care Team (Late st Contact Info) Description 02/08/2023 Lab Requisition [facility] - DermPath Lab [address] [place] [address] Bhupendra Andres MD [address] [place] [address] Social History Tobacco Use Types Packs/Day Years Used Date Smoking Tobacco: Former Smokeless Tobacco: Never Alcohol Use Standard Drinks/Week Comments No 0 (1 standard drink = 0.6 oz pur e alcohol) Sex and Gender Information Value Date Recorded Sex Assigned at Not on file Gender Identity Not on file Sexual Orientation Not on file documented as of this encounter Plan of Treatment Not on file documented as of this encounter Procedures Procedure Name Priority Date/Time Associated Diagnosis Comments DERMATOPATHOLOGY Routine 02/07/2023 12:0 0 AM COTTON FARMER documented in this encounter Results * DERMATOPATHOLOGY (02/07/2023 12:00 AM COTTON FARMER) Case Report Dermatopathology Report Case: [id number] Authorizing Provider: Bhupendra Andres MD Collected: 02/07/2023 12:00 AM Ordering Location: [facility] DermPath Lab Received: 02/08/2023 09:22 AM Pathologist: Nicole Motley MD Specimen: Skin, left dorsal hand 3 2:11 PM [facility] DERMATOPATHOLOGY LABORATORY Final Diagnosis Specimen A. SKIN, left dorsal hand: DERMATOFIBROMA (D23.9) PRESENT AT MARGIN 3 2:11 PM [facility] DERMATOPATHOLOGY LABORATORY Clinical History Papule R/O Neoplasm Check Margin 3 2:11 PM [facility] DERMATOPATHOLOGY LABORATORY Gross Description Specimen A: Received is one formalin filled container labeled with the patient's name and designated left dorsal hand. The specimen consists of a shave biopsy measuring 4x3x1 mm. Jar 0. 3 2:11 PM [facility] DERMATOPATHOLOGY LABORATORY Microscopic Description Specimen A. SKIN, left dorsal hand: There is epidermal hyperplasia. Within the dermis, there are fibrohistiocytic cells in haphazard array among coarse collagen bundles. This lesion is present at the margin of the specimen. 3 2:11 PM [facility] DERMATOPATHOLOGY LABORATORY Disclaimer An external and internal positive and negative controls are appropriate for the histochemical, immunohistochemical and immunofluorescence stain(s) in this case (if any), except where stated explicitly. The performance characteristics of the stain(s) cited in this report were developed and its performance characteristic determined by the Dermatopathology Laboratory at [facility], directed by Dr. Thiago Guerra. These tests need not be, and therefore are not, approved by the [place] Food and Drug Administration. The tests are used for clinical purposes. Billing Codes Specimen Charges Stain Charges 41582 1 3 2:11 PM [facility] DERMATOPATHOLOGY LABORATORY Embedded Images 3 2:11 PM [facility] DERMATOPATHOLOGY LABORATORY Pathology/Cytolog y TISSUE SPECIMEN FROM SKIN / Unknown 02/07/2023 02/08/2023 9:22 AM [facility] Bhupendra Andres MD LAB - PATHOLOGY/CYTO LOGY ORDER[facility]LES DERMATOPATHOLOGY LABORATORY [facility] - Department of Dermatology [address], [address] [phone] documented in this encounter Visit Diagnoses Not on filedocumented in this encounter Care Teams Research Neuropsychologist Relationship Specialty Start Date End Date Alphonso Echols MD 4 [facility] [address] [place] [phone] PCP - General Internal Medicine 12/01/17 documented as of this encounter
--- OUTSIDE RECORDS SUMMARY | 2024-05-02 09:30 | XMS_ITS | Encounter Summary ---
Author Organization [facility] Address 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
--- OUTSIDE RECORDS SUMMARY | 2024-05-02 09:30 | XMS_ITS | Encounter Summary ---
Author Organization [facility] Address 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 Yes 09/20/2021 9:11 AM CDT documented as of this encounter Plan of Treatment Not on file documented as of this encounter Procedures Procedure Name Priority Date/Time Associated Diagnosis Comments 2019 NOVEL CORONAVIRUS (COVID-19) PCR DETECTION Routine 09/20/2021 9:27 AM CDT documented in this encounter Results * 2019 NOVEL CORONAVIRUS (COVID-19) PCR DETECTION (09/20/2021 9:27 AM CDT) COVID-19 PCR NOT DETECTED Not Detected 09/22/19 1:18 AM CDT [facility] 09/21/2021 1:18 AM CDT [facility] Upper Respiratory Collection / Unknown 09/20/2021 9:27 AM CDT 09/20/2021 9:27 AM CDT Narrative [facility] - 09/21/2021 1:18 AM CDT This test has been authorized by the FDA under an Emergency Use Authorization for use by authorized laboratories. This test has been validated in accordance with the FDA's guidance regarding Coronavirus Disease-2019 testing. Optimum specimen types and timing for peak viral levels during infection have not been determined. A negative RT-PCR result does not rule out infection with the 2019-Novel Coronavirus. Tea [facility] - GENERAL ORDERAB LES Final Result [facility] CLIA# [id number] [address] [place] [address] documented in this encounter Visit Diagnoses Not on filedocumented in this encounter Care Teams Health Care Legal Assistant Relationship Specialty Start Date End Date Conversion, History PCP - General 09/14/06 documented as of this encounter
--- OUTSIDE RECORDS SUMMARY | 2024-05-02 09:30 | XMS_ITS | Encounter Summary ---
Author Organization [facility] Address [address] [place] [address] Care Team Providers Care Pay Clerk Name Role Phone Unavailable Primary Care Provider Unavailabl e Prior Encounters Date Type Department Care Team Description 09/29/2021 Travel 09/29/2021 9:00 AM CDT Office Visit [facility] [address] [place] [address] Juan Jose Ramirez DDS 09/29/2021 9:00 AM CDT Office Visit [facility] [address] [place] [address] 04/07/2021 Travel 04/07/2021 8:00 AM LEASING PROPERTY MANAGER Office Visit [facility] [address] [place] [address] Betsy De Luna DMD 03/17/2021 Travel 03/17/2021 2:00 PM LEASING PROPERTY MANAGER Office Visit [facility] [address] [place] [address] Alena Mishra [facility] 03/17/2021 2:00 PM LEASING PROPERTY MANAGER Office Visit [facility] [address] [place] [address] Betsy De Luna DMD 09/23/2020 Travel 09/23/2020 3:30 PM CDT Office Visit [facility] [address] [place] [address] Betsy De Luna, DMD Last Filed Vital Signs Vital Sign Reading Time Taken Comments Blood Pressure 132/69 09/29/2021 8:39 AM CDT Pulse 60 09/29/2021 8:39 AM CDT Temperature 36.1 C (97 F) 03/17/2021 1:57 PM LEASING PROPERTY MANAGER Respiratory Rate - - Oxygen Saturation - - Inhaled Oxygen Concentration - - Weight - - Height - - Body Mass Index - - Plan of Treatment Not on file Procedures Procedure Name Priority Date/Time Associated Diagnosis Comments PERIO MAINTENANCE Routine 09/29/2021 9:0 0 AM CDT TOPICAL APPLICATION OF FLUORIDE EXCLUDING VARNISH Routine 09/29/2021 9:00 AM CDT BITEWINGS - FOUR RADIOGRAPHIC IMAGES Routine 09/29/2021 9:00 AM CDT PERIODIC ORAL EVALUATION - ESTABLISHED PATIENT Routine 09/29/2021 9:00 AM CDT 19 [facility] PROF CRTSY Routine 04/07/2021 8 :00 AM LEASING PROPERTY MANAGER NC X-RAY Routine 04/07/2021 8:00 AM LEASING PROPERTY MANAGER 19 CEMENT CROWN Routine 04/07/2021 8:00 AM LEASING PROPERTY MANAGER TOPICAL APPLICATION OF FLUORIDE VARNISH Routine 03/17/2021 2:00 PM LEASING PROPERTY MANAGER ORAL HYGIENE INSTRUCTIONS Routine 2020 2:00 PM LEASING PROPERTY MANAGER PERIO MAINTENANCE Routine 03/17/2021 2:0 0 PM LEASING PROPERTY MANAGER PERIODIC ORAL EVALUATION - ESTABLISHED PATIENT Routine 03/17/2021 2:00 PM LEASING PROPERTY MANAGER TOPICAL APPLICATION OF FLUORIDE VARNISH Routine 09/23/2020 3:30 PM CDT PERIO MAINTENANCE Routine 09/23/2020 3:3 0 PM CDT INTRAORAL PHOTO Routine 09/23/2020 3:30 PM CDT INTRAORAL PHOTO Routine 09/23/2020 3:30 PM CDT INTRAORAL PHOTO Routine 09/23/2020 3:30 PM CDT INTRAORAL PHOTO Routine 09/23/2020 3:30 PM CDT PANORAMIC RADIOGRAPHIC IMAGE Routine 09/23/2020 3:30 PM CDT INTRAORAL - COMPREHENSIVE SERIES OF RADIOGRAPHIC IMAGES Routine 09/23/2020 3:30 PM CDT COMPREHENSIVE ORAL EVALUATION - NEW OR ESTABLISHED PATIENT Routine 09/23/2020 3:30 PM CDT Visit Diagnoses Not on file Insurance [facility] AND [place] PPO
--- OUTSIDE RECORDS SUMMARY | 2024-05-02 09:30 | XMS_ITS | Referral Summary ---
Author Organization [facility] Address [address] [place] [address] Care Team Providers Care Corporate Development Analyst Name Role Phone Alphonso Echols MD Primary Care Provider [phone] Source Comments [facility],non-[facility] [place] Affiliates and Associated Physician Practices is amultiple site organization consisting of ambulatory clinics and hospital sitesin [place], [place], [place] and [place]. This disclosure is being madepursuant to the Care Everywhere program and may not contain all information available regarding this patient. Last updated 17.[facility] [employer] Allergies No known active allergies Medications * Be aware that medications may not be up to date on this document. Alwaysverify current medications with the patient. 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, initial encounter Take 1 (one) capsule by mouth at bedtime 30 capsule 04/04/2023 Active Active Problems No known active problems Immunizations Name Administration Dates Next Due TDAP (7yrs+) 03/31/2023 Social History Tobacco Use Types Packs/Day Years Used Date Smoking Tobacco: Former Smokeless Tobacco: Never Tobacco Cessation:Counseling Given: Not Answered Alcohol Use Standard Drinks/Week Comments Yes 0 (1 standard drink = 0.6 oz pur e alcohol) occ Sex and Gender Information Value Date Recorded Sex Assigned at Not on file Gender Identity Not on file Sexual Orientation Not on file Last Filed Vital Signs Vital Sign Reading Time Taken Comments Blood Pressure 156/77 05/16/2023 12:58 PM MACHINE PULLER OVER Pulse 61 05/16/2023 12:58 PM MACHINE PULLER OVER Temperature 36.4 C (97.6 F) 03/30/2023 9:17 PM MACHINE PULLER OVER Respiratory Rate 24 03/30/2023 9:17 PM MACHINE PULLER OVER Oxygen Saturation 98% 05/16/2023 12:58 PM MACHINE PULLER OVER Inhaled Oxygen Concentration - - Weight 108.9 kg (240 lb) 05/16/2023 12:58 PM MACHINE PULLER OVER Height 165.1 cm (5' 5 ) 05/16/2023 12:58 PM MACHINE PULLER OVER Body Mass Index 39.94 05/16/2023 12:58 PM MACHINE PULLER OVER Plan of Treatment Not on file Procedures Procedure Name Priority Date/Time Associated Diagnosis Comments COMPREHENSIVE METABOLIC PANEL STAT 12/01/2017 8:46 PM CDT from Last 3 Months or Most Recently Relevant to Health Maintenance Results * (ABNORMAL) COMPREHENSIVE METABOLIC PANEL (12/01/2017 8:46 PM CDT) Glucose 223(H) 74 - 106 mg/dL 12/01/2017 9:08 PM CDT [facility] Sodium 136 136 - 145 mmol/L 12/01/2017 9:08 PM CDT [facility] Potassium 3.5 3.5 - 5.1 mmol/L 12/01/2017 9:08 PM CDT [facility] Chloride 101 98 - 107 mmol/L 12/01/2017 9:08 PM CDT [facility] CO2 31 22 - 31 mmol/L 12/01/2017 9:08 PM CDT [facility] Calcium 9.7 8.5 - 10.1 mg/dL 12/01/2017 9:08 PM CDT [facility] Anion Gap 4(L) 8 - 16 mmol/L 12/01/2017 9:08 PM CDT [facility] BUN 16 7 - 21 mg/dL 12/01/2017 9:08 PM CDT [facility] Creatinine 1.00 0.50 - 1.30 mg/dL 12/01/2017 9:08 PM CDT [facility] Alkaline Phosphatase 103 38 - 126 U/L 12/01/2017 9:08 PM CDT [facility] ALT 43 13 - 61 U/L 12/01/2017 9:08 PM CDT [facility] AST 14 5 - 40 U/L 12/01/2017 9:08 PM CDT [facility] Protein Total 8.9(H) 6.4 - 8.2 gm/dL 12/01/2017 9:08 PM CDT [facility] Albumin 4.3 3.4 - 5.0 gm/dL 12/01/2017 9:08 PM CDT [facility] Bilirubin Total 1.3(H) 0.2 - 1.0 mg/dL 12/01/2017 9:08 PM CDT [facility] eGFR by MDRD >60 >60 mL/min/1.7 3m2 12/01/2017 9:08 PM CDT [facility] eGFR by MDRD >60 >60 mL/min/1.7 3m2 12/01/2017 9:08 PM CDT [facility] Blood BLOOD SPECIMEN / Unknown Venipuncture / Unknown 12/01/2017 8:46 PM CDT 12/01/2017 8:47 PM CDT Chantel Rosado APRN-ASSISTANT PRESSMAN LAB - CHEMI STRY ORDERABLES [facility] [address] [place] [address] from Last 3 Months or Most Recently Relevant to Health Maintenance Care Teams Corporate Development Analyst Relationship Specialty Start Date End Date Alphonso Echols MD [address] [facility] [address] [place] [phone] PCP - General Internal Medicine 12/01/17
--- OUTSIDE RECORDS SUMMARY | 2024-05-02 09:30 | XMS_ITS | Patient Health Summary ---
Author Organization [facility] Address [address] [place] [address] Care Team Providers Care Technician Anatomic Pathology Name Role Phone Alphonso Echols MD Primary Care Provider [phone] Note from [facility],non-owned Affiliates and Associated Physician Practices is amultiple site organization consisting of ambulatory clinics and hospital sitesin [place], [place], [place] and [place]. This disclosure is being madepursuant to the Care Everywhere program and may not contain all information available regarding this patient. Last updated 17.[facility] Allergies No known active allergies Medications * Be aware that medications may not be up to date on this document. Alwaysverify current medications with the patient. * oxyCODONE-acetaminophen (Percocet) 5-325 MG tablet(Started 03/31/2023) Take 1 (one) tablet by mouth every 6 hours as needed for Pain * gabapentin (Neurontin) 300 MG capsule(Started 04/04/2023) Take 1 (one) capsule by mouth at bedtime Active Problems No known active problems Immunizations * TDAP (7yrs+)(Given 03/31/2023) Social History Tobacco Use Types Packs/Day Years [...] Comments Blood Pressure 156/77 05/16/2023 12:58 PM CLOSING MACHINE OPERATOR Pulse 61 05/16/2023 12:58 PM CLOSING MACHINE OPERATOR Temperature 36.4 C (97.6 F) 03/30/2023 9:17 PM CLOSING MACHINE OPERATOR Respiratory Rate 24 03/30/2023 9:17 PM CLOSING MACHINE OPERATOR Oxygen Saturation 98% 05/16/2023 12:58 PM CLOSING MACHINE OPERATOR Inhaled Oxygen Concentration - - Weight 108.9 kg (240 lb) 05/16/2023 12:58 PM CLOSING MACHINE OPERATOR Height 165.1 cm (5' 5 ) 05/16/2023 12:58 PM CLOSING MACHINE OPERATOR Body Mass Index 39.94 05/16/2023 12:58 PM CLOSING MACHINE OPERATOR Procedures * XR HAND LEFT 3VW OR MORE(Performed 03/30/2023) Performed for Open displaced fracture of distal phalanx of left index finger, initial encounter * DERMATOPATHOLOGY(Performed 02/07/2023) * CARDIAC EKG ORDER(Performed 12/04/2017) * TROPONIN I(Performed 12/01/2017) * CT HEAD WO CONTRAST(Performed 12/01/2017) Performed for Acute intractable headache, unspecified headache type * CK BLOOD(Performed 12/01/2017) * PT-INR(Performed 12/01/2017) * NT-PRO BNP(Performed 12/01/2017) * TROPONIN I(Performed 12/01/2017) * COMPREHENSIVE METABOLIC PANEL(Performed 12/01/2017) * CBC W AUTO DIFFERENTIAL(Performed 12/01/2017) * XR CHEST 2VW(Performed 12/01/2017) Performed for Weakness * EKG 12-LEAD(Performed 12/01/2017) Performed for Weakness * XR CHEST 2VW(Performed 04/04/2011) Performed for Rheumatoid arthritis (HCC), Encounter for long-term (current) use of other medications Results * XR HAND LEFT 3VW OR MORE (03/30/2023 9:49 PM CLOSING MACHINE OPERATOR) Anatomical Region Laterality Modality Wrist / Hand Radiographic Mi ging 03/30/2023 10:4 0 PM CLOSING MACHINE OPERATOR Impressions 03/31/2023 4:10 PM CLOSING MACHINE OPERATOR IMPRESSION: 1.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 The remaining medial and proximal phalanges of the second finger are intact. 2.Other osseous structures of the left hand are intact. Report dictated by Robsno Hernandes MD,(logistics vice president). Ketty Olivas MD have personally reviewed and interpreted this examination/study. > Interpreting Provider: Ketty Pressley MD on 03/31/2023 4:10 PM Narrative 03/31/2023 4:10 PM CLOSING MACHINE OPERATOR EXAMINATION: XR HAND LEFT 3VW OR MORE DATE/TIME OF EXAM: 03/30/2023 9:49 PM, LOCATION [facility] HISTORY: S62.631B: Open displaced fracture of distal phalanx of left index finger, initial encounter evaluate fx COMPARISON: No prior study is available for comparison. 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 The remaining middle and proximal phalanges are intact. The other fingers are intact. There are mild degenerative changes. Bone density and texture are normal. No soft tissue swelling is present. Atherosclerotic calcification of the distal radial artery. Corticated ossific fragment posterior to the carpal bones may represent old triquetral fracture. Old injury of the ulnar styloid process. Procedure Note Ketty Pressley MD - 03/31/2023 EXAMINATION: XR HAND LEFT 3VW OR MORE DATE/TIME OF EXAM: 03/30/2023 9:49 PM, LOCATION [facility] HISTORY: S62.631B: Open displaced fracture of distal phalanx of leftindex finger, initial encounter evaluate fx COMPARISON: No prior study is available for comparison. 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 The remainingmiddle and proximal phalanges are intact. The other fingers are intact. Thereare mild degenerative changes. Bone density and texture are normal. No soft tissue swelling is present. Atherosclerotic calcification of the distal radial artery. Corticated ossific fragment posterior to the carpal bones may represent old triquetral fracture. Old injury of the ulnar styloid process. IMPRESSION: 1.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 The remaining medial and proximal phalanges of the second finger are intact. 2.Other osseous structures of the left hand are intact. Report dictated by Robson Hernandes MD,(logistics vice president). Ketty Olivas MD have personally reviewed and interpreted this examination/study. > Interpreting Provider: Ketty Pressley MD on 03/31/2023 4:10 PM Niraj Palomo MD DIAGNOSTIC IMAGING ORDERABLES * DERMATOPATHOLOGY (02/07/2023 12:00 AM CLOSING MACHINE OPERATOR) Case Report Dermatopathology Report Case: [id number] Authorizing Provider: Bhupendra Andres MD Collected: 02/07/2023 12:00 AM Ordering Location: [facility] DermPath Lab Received: 02/08/2023 09:22 AM Pathologist: Nicole Motley MD Specimen: Skin, left dorsal hand 3 2:11 PM [facility] DERMATOPATHOLOGY LABORATORY Final Diagnosis Specimen A. SKIN, left dorsal hand: DERMATOFIBROMA (D23.9) PRESENT AT MARGIN 3 2:11 PM [facility] DERMATOPATHOLOGY LABORATORY Clinical History Papule R/O Neoplasm Check Margin 3 2:11 PM [facility] DERMATOPATHOLOGY LABORATORY Gross Description Specimen A: Received is one formalin filled container labeled with the patient's name and designated left dorsal hand. The specimen consists of a shave biopsy measuring 4x3x1 mm. Jar 0. 3 2:11 PM [facility] DERMATOPATHOLOGY LABORATORY Microscopic Description Specimen A. SKIN, left dorsal hand: There is epidermal hyperplasia. Within the dermis, there are fibrohistiocytic cells in haphazard array among coarse collagen bundles. This lesion is present at the margin of the specimen. 3 2:11 PM [facility] DERMATOPATHOLOGY LABORATORY Disclaimer An external and internal positive and negative controls are appropriate for the histochemical, immunohistochemical and immunofluorescence stain(s) in this case (if any), except where stated explicitly. The performance characteristics of the stain(s) cited in this report were developed and its performance characteristic determined by the Dermatopathology Laboratory at [facility], directed by Dr. Thiago Guerra. These tests need not be, and therefore are not, approved by the [place] Food and Drug Administration. The tests are used for clinical purposes. Billing Codes Specimen Charges Stain Charges 79074 1 3 2:11 PM [facility] DERMATOPATHOLOGY LABORATORY Embedded Images 3 2:11 PM CLOSING MACHINE OPERATOR DERMATOPATHOLOGY LABORATORY Pathology/Cytolog y TISSUE SPECIMEN FROM SKIN / Unknown 02/07/2023 02/08/2023 9:22 AM CLOSING MACHINE OPERATOR Bhupendra Andres MD LAB - PATHOLOGY/CYTO LOGY ORDERABLES Performing Organization Address [facility]/ZIP Co de Phone Number DERMATOPATHOLOGY LABORATORY [facility] Department of Dermatology [address], [address] [phone] * CARDIAC EKG ORDER (12/04/2017 11:50 PM CDT) Narrative 12/04/2017 11:50 PM CDT Ordered by an unspecified provider. Scanned Document CARDIAC SERVICES ORD ERABLES * TROPONIN I (12/01/2017 11:59 PM CDT) Only the most recent of2 resultswithin the time period is included. Troponin I <0.015 0.000 - 0.049 ng/mL 12/02/2017 12:23 AM CDT [facility] Blood BLOOD SPECIMEN / Unknown Venipuncture / Unknown 12/01/2017 11:59 PM CDT 12/02/2017 12:06 AM CDT Narrative [facility] - 12/02/2017 12:23 AM CDT Note: Diagnosis of myocardial infarction requires symptoms of ischemia or EKG changes of ischemia and Troponin I >99th of normal (0.05 ng/mL). Troponin should be drawn on initial assessment and 3-6 hours later as clinically indicated. Any condition resulting in myocardial cell damage can increase cardiac troponin levels. In addition to myocardial infarction, these include but are not limited to congestive heart failure (CHF), arrhythmia, myocarditis, and non-cardiac related causes such as pulmonary embolism, renal failure and sepsis. Chantel Rosado APRN-IT INFRASTRUCTURE MANAGER LAB - CHEMI STRY ORDERABLES [facility] [address] [place] [address] * CT HEAD WO CONTRAST (12/01/2017 9:20 PM CDT) Anatomical Region Laterality Modality Head Computed Tomogra phy 12/01/2017 10:2 0 PM CDT Impressions 12/01/2017 10:22 PM CDT No acute findings in the brain. Noncontrast brain CT. Please see above. Reading Radiologist: Dontae Thomason MD on 12/01/2017 at 10:22 PM Narrative 12/01/2017 10:22 PM CDT EXAMINATION: CT BRAIN WITHOUT CONTRAST. Information from HIS: Headache. 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 The pt says he has experienced these symptoms before and says they only occur when at work. He says that diaphoresis and chills started first, then nausea and one episode of vomiting before the SANCHES started. He says the symptoms have improved since arriving to the ED and the SANCHES is not as severe. He denies CP, but notes that he does have a hx of NC and has pacemaker that was placed 6 years ago. He also denies dizziness, LOC, neck pain, weakness, and blurred vision. Technique: Noncontrast axial images of the brain were performed at the time of the patient's presentation. This is a noncontrast screening study. Additional coronal reformatted images were performed with the CT scanner software. This CT report was transcribed with a computerized speech recognition system. In an effort to expedite patient care, it has not been adjusted for typographical, grammatical or syntax problems by a trained pesticide use medical coordinator. Findings: There is no intracranial mass-effect or midline shift identified. The ventricular system is at the upper limits of normal in size.. No focal intraparenchymal hemorrhage can be identified. If the patient's symptoms persist or worsen, a followup brain CT or a scheduled brain MRI should be considered for further evaluation. Procedure Note Dontae Thomason MD - 12/01/2017 EXAMINATION: CT BRAIN WITHOUT CONTRAST. Information from HIS: Headache. 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 The pt says he has experienced these symptoms before and says they only occur when at work. He says that diaphoresis and chills started first, then nausea and one episode of vomiting before the SANCHES started. He says the symptoms have improved since arriving to the ED and the SANCHES is not as severe. He denies CP, but notes that he does have a hx of NC and has pacemaker that was placed 6 years ago. He also denies dizziness, LOC, neck pain, weakness, and blurred vision. Technique: Noncontrast axial images of the brain were performed at the time of the patient's presentation. This is a noncontrast screening study. Additional coronal reformatted images were performed with the CT scanner software. This CT report was transcribed with a computerized speech recognition system. In an effort to expedite patient care, it has not been adjusted for typographical, grammatical or syntax problems by a trained pesticide use medical coordinator. Findings: There is no intracranial mass-effect or midline shift identified. The ventricular system is at the upper limits of normal in size.. No focal intraparenchymal hemorrhage can be identified. If the patient's symptoms persist or worsen, a followup brain CT or a scheduled brain MRI should be considered for further evaluation. IMPRESSION No acute findings in the brain. Noncontrast brain CT. Please see above. Reading Radiologist: Dontae Thomason MD on 12/01/2017 at 10:22 PM Aren Lezama DO CT ORDERABLES * NT-PRO BNP (12/01/2017 8:46 PM CDT) NT-proBNP 59.0 <300.0 pg/mL 12/01/2017 9:08 PM CDT [facility] Blood BLOOD SPECIMEN / Unknown Venipuncture / Unknown 12/01/2017 8:46 PM CDT 12/01/2017 8:47 PM CDT Narrative [facility] - 12/01/2017 9:08 PM CDT NT-proBNP Patient Age Acute HF Unlikely Acute HF Likely <50 years <300 pg/mL >450 pg/mL 50-75 years <300 pg/mL >900 pg/mL >75 years <300 pg/mL >1800 pg/mL Reference: KODY Iglesias et al. ICON Study. Heart Journal (2006) 27, 330- 337 Both BNP and NT-proBNP derive from the precursor molecule called proBNP which is secreted from the ventricles in response to ventricle volume expansion and/or pressure overload. The secreted proBNP is subsequently cleaved by enzymes to form BNP, the active hormone and NT-proBNP an inactive metabolite. NT-proBNP has a longer half-life of 1.5-2.0 hours verses BNP with a half-life of 20 min for BNP. Both are useful biomarkers of ventricular distension due to increased intracardiac pressure. Both BNP and NT-proBNP increase with age and renal insufficiency. Increased concentrations of NT-proBNP have also been observed in the setting of acute myocardial infarction, right ventricular failure, valvular heart disease, and atrial fibrillation. Chantel Rosado CREATIVE MANAGER-IT INFRASTRUCTURE MANAGER LAB - CHEMI STRY ORDERABLES [facility] [address] [place] [address] * PT-INR (12/01/2017 8:46 PM CDT) PT 9.9 9.5 - 11.6 sec 12/01/2017 9:04 PM CDT [facility] INR 0.9 0.9 - 1.1 12/01/2017 9:04 PM CDT [facility] Blood BLOOD SPECIMEN / Unknown Venipuncture / Unknown 12/01/2017 8:46 PM CDT 12/01/2017 8:47 PM CDT Narrative [facility] - 12/01/2017 9:04 PM CDT Conventional Warfarin Anticoagulant Therapy: INR Reference Range: 2.0-3.0 Intensive Warfarin Anticoagulant Therapy: INR Reference Range: 2.5-3.5 Chantel Rosado CREATIVE MANAGER-IT INFRASTRUCTURE MANAGER LAB - [facility] ORDERABLES [facility] [address] [place] [address] * (ABNORMAL) CBC W AUTO DIFFERENTIAL (12/01/2017 8:46 PM CDT) WBC 10.5 4.4 - 10.7 x10E9/L 12/01/2017 8:52 PM CDT [facility] WBC Corrected x10E9/L 12/01/2017 8:52 PM CDT [facility] RBC 3.99 3.80 - 5.40 x10E12/L 12/01/2017 8:52 PM CDT [facility] Hemoglobin 13.4 12.0 - 17.6 gm/dL 12/01/2017 8:52 PM CDT [facility] Hematocrit 40.7 35.2 - 51.7 % 12/01/2017 8:52 PM CDT [facility] MCV 102.0(H) 80.7 - 98.3 fl 12/01/2017 8:52 PM CDT [facility] MCH 33.6 26.7 - 34.0 pg 12/01/2017 8:52 PM CDT [facility] MCHC 32.9 30.8 - 35.9 gm/dL 12/01/2017 8:52 PM CDT [facility] Platelet Count 241 153 - 416 x10E9/L 12/01/2017 8:52 PM CDT [facility] RDW-CV 13.4 12.1 - 14.9 % 12/01/2017 8:52 PM CDT [facility] MPV 10.8 9.4 - 12.9 fl 12/01/2017 8:52 PM CDT [facility] Neutrophils % 85.2(H) 44.0 - 73.0 % 12/01/2017 8:52 PM CDT [facility] Lymphocytes % 9.0(L) 20.0 - 43.0 % 12/01/2017 8:52 PM CDT [facility] Monocytes % 4.9(L) 5.0 - 13.0 % 12/01/2017 8:52 PM CDT [facility] Eosinophils % 0.4 0.0 - 6.0 % 12/01/2017 8:52 PM CDT [facility] Basophils % 0.3 0.0 - 2.0 % 12/01/2017 8:52 PM CDT [facility] Immature Granulocytes 0.2 0 - 1 % 12/01/2017 8:52 PM CDT [facility] Neutrophil Absolute 8.95(H) 2.01 - 7.14 x10E9/L 12/01/2017 8:52 PM CDT [facility] Lymphocytes Absolute 0.95(L) 1.07 - 3.94 x10E9/L 12/01/2017 8:52 PM CDT [facility] Monocytes Absolute 0.51 0.26 - 1.07 x10E9/L 12/01/2017 8:52 PM CDT [facility] Eosinophils Absolute 0.04 0 - 0.47 x10E9/L 12/01/2017 8:52 PM CDT [facility] Basophils Absolute 0.03 0 - 0.08 x10E9/L 12/01/2017 8:52 PM CDT [facility] Immature Granulocytes Absolute 0.02 0.00 - 0.06 x10E9/L 12/01/2017 8:52 PM CDT [facility] nRBC Auto 0 /100 WBC 12/01/2017 8:52 PM CDT [facility] Blood BLOOD SPECIMEN / Unknown Venipuncture / Unknown 12/01/2017 8:46 PM CDT 12/01/2017 8:47 PM CDT Chantel Rosado CREATIVE MANAGER-IT INFRASTRUCTURE MANAGER LAB - HEMAT OLOGY ORDERABLES [facility] [address] [place] [address] * (ABNORMAL) COMPREHENSIVE METABOLIC PANEL (12/01/2017 8:46 PM CDT) [facility] Signature Glucose 223(H) 74 - 106 mg/dL 12/01/2017 9:08 PM CDT [facility] Sodium 136 136 - 145 mmol/L 12/01/2017 9:08 PM CDT [facility] Potassium 3.5 3.5 - 5.1 mmol/L 12/01/2017 9:08 PM CDT [facility] Chloride 101 98 - 107 mmol/L 12/01/2017 9:08 PM CDT [facility] CO2 31 22 - 31 mmol/L 12/01/2017 9:08 PM CDT [facility] Calcium 9.7 8.5 - 10.1 mg/dL 12/01/2017 9:08 PM CDT [facility] Anion Gap 4(L) 8 - 16 mmol/L 12/01/2017 9:08 PM CDT [facility] BUN 16 7 - 21 mg/dL 12/01/2017 9:08 PM CDT [facility] Creatinine 1.00 0.50 - 1.30 mg/dL 12/01/2017 9:08 PM CDT [facility] Alkaline Phosphatase 103 38 - 126 U/L 12/01/2017 9:08 PM CDT [facility] ALT 43 13 - 61 U/L 12/01/2017 9:08 PM CDT [facility] AST 14 5 - 40 U/L 12/01/2017 9:08 PM CDT [facility] Protein Total 8.9(H) 6.4 - 8.2 gm/dL 12/01/2017 9:08 PM CDT [facility] Albumin 4.3 3.4 - 5.0 gm/dL 12/01/2017 9:08 PM CDT [facility] Bilirubin Total 1.3(H) 0.2 - 1.0 mg/dL 12/01/2017 9:08 PM CDT [facility] eGFR by MDRD >60 >60 mL/min/1.7 3m2 12/01/2017 9:08 PM CDT [facility] eGFR by MDRD >60 >60 mL/min/1.7 3m2 12/01/2017 9:08 PM CDT [facility] Blood BLOOD SPECIMEN / Unknown Venipuncture / Unknown 12/01/2017 8:46 PM CDT 12/01/2017 8:47 PM CDT Chantel Rosado CREATIVE MANAGER-IT INFRASTRUCTURE MANAGER LAB - CHEMI STRY ORDERABLES [facility] [address] [place] [address] * CK BLOOD (12/01/2017 8:46 PM CDT) CK 87 35 - 232 U/L 12/01/2017 9:22 PM CDT [facility] Blood BLOOD SPECIMEN / Unknown Venipuncture / Unknown 12/01/2017 8:46 PM CDT 12/01/2017 8:47 PM CDT Aren Lezama DO LAB - CHEMISTRY ORD ERABLES [facility] [address] [place] [address] * XR CHEST 2VW (12/01/2017 8:35 PM CDT) Only the most recent of2 resultswithin the time period is included. Anatomical Region Laterality Modality Chest Radiographic Mi ging 12/01/2017 10:4 5 PM CDT Impressions 12/01/2017 10:47 PM CDT No acute disease in the chest. Please see above discussion. Reading Radiologist: Dontae Thomason MD on 12/01/2017 at 10:47 PM Narrative 12/01/2017 10:47 PM CDT CHEST - TWO VIEWS INDICATION: Weakness. Chest pain.. COMPARISON: April 04, 2011 FINDINGS: Frontal and lateral views of the chest show the lungs to be clear of confluent infiltrates. A pacemaker is noted on the left. The right cardiophrenic angle is obscured but the soft tissue density is smooth in outline and may have been partially present on the examination of April 04, 2011 as well as see from prominent pericardial fat pad. Today's lateral images hampered by motion artifact.. The heart size is stable.. Procedure Note Dontae Thomason MD - 12/01/2017 CHEST - TWO VIEWS INDICATION: Weakness. Chest pain.. COMPARISON: April 04, 2011 FINDINGS: Frontal and lateral views of the chest show the lungs to be clear of confluent infiltrates. A pacemaker is noted on the left. The right cardiophrenic angle is obscured but the soft tissue density is smooth in outline and may have been partially present on the examination of April 04, 2011 as well as see from prominent pericardial fat pad. Today's lateral images hampered by motion artifact.. The heart size is stable.. IMPRESSION No acute disease in the chest. Please see above discussion. Reading Radiologist: Dontae Thomason MD on 12/01/2017 at 10:47 PM Chantel DAVILA DIAGNOSTIC IMAGING ORDERABLES * EKG 12-LEAD (12/01/2017 8:27 PM CDT) Ventricular Rate 81 BPM [facility] Atrial Rate 78 BPM [facility] QRS Duration ms 168 ms [facility] Q-T Interval ms 442 ms [facility] QTC Calculation (Bezet) 513 ms [facility] Calculated P [place] 62 degrees [facility] Calculated R [place] -65 degrees [facility] Calculated T [place] 79 degrees [facility] Interpretation EKG AV sequential or dual chamber electronic pacemaker Abnormal ECG No previous ECGs available Confirmed by JANETT MCCOLLUM ([id number]) on 12/03/2017 8:58:21 PM [facility] 12/01/2017 8:27 PM CDT 12/03/2017 8:58 PM CDT Chantel DAVILA ECG ORDERAB LES [facility] Care Teams Technician Anatomic Pathology Relationship Specialty Start Date End Date Alphonso Echols MD [address] [place] [address] [phone] PCP - General Internal Medicine 12/01/17
--- OUTSIDE RECORDS SUMMARY | 2024-05-02 09:30 | XMS_ITS | Referral Summary ---
Author Organization [facility] Address [address] [place] [address] Care Team Providers Care Stave Block Roller Name Role Phone Unavailable Primary Care Provider [...] 36.1 C (97 F) 03/17/2021 1:57 PM MECHANICAL COMMISSIONING ENGINEER Respiratory Rate - - Oxygen Saturation - [...] Most Recently Relevant to Health Maintenance Insurance [facility] [place] [facility] [place] PPO
--- OUTSIDE RECORDS SUMMARY | 2024-05-02 09:30 | XMS_ITS | Clinical Summary ---
Author Organization [facility] Address [address] [place] [address] Care Team Providers Care Metal Trimmer Name Role Phone Alphonso Echols MD Primary Care Provider [phone] Source Comments [facility],non-[facility] Affiliates and Associated Physician Practices is amultiple site organization consisting of ambulatory clinics and hospital sitesin [place], [place], [place] and [place]. This disclosure is being madepursuant to the Care Everywhere program and may not contain all information available regarding this patient. Last updated 17.[facility] [employer] Allergies No known active allergies Medications * [...] Comments Blood Pressure 156/77 05/16/2023 12:58 PM TEXTILE ARTIST Pulse 61 05/16/2023 12:58 PM TEXTILE ARTIST Temperature 36.4 C (97.6 F) 03/30/2023 9:17 PM TEXTILE ARTIST Respiratory Rate 24 03/30/2023 9:17 PM TEXTILE ARTIST Oxygen Saturation 98% 05/16/2023 12:58 PM TEXTILE ARTIST Inhaled Oxygen Concentration - - Weight 108.9 kg (240 lb) 05/16/2023 12:58 PM TEXTILE ARTIST Height 165.1 cm (5' 5 ) 05/16/2023 12:58 PM TEXTILE ARTIST Body Mass Index 39.94 05/16/2023 12:58 PM TEXTILE ARTIST Plan of Treatment Health Maintenance Due Date Last Done Comments COLOGUARD (AGES 45-75) - COLON CA SCREENING 1959 COLON MONITORING 1959 COLONOSCOPY - COLON CA SCREENING 1959 CT COLONOGRAPHY - COLON CA SCREENING 1959 Colorectal Cancer Screening 1959 FIT - COLON CA SCREENING 1959 FLEX SIG - COLON CA SCREENING 1959 LIPID TESTING 1959 HIV SCREENING 11/08/1974 HEPATITIS C SCREENING 11/04/1977 PNEUMOCOCCAL VACCINE 50+ (1 of 1 - PCV) 11/08/2009 ZOSTER VACCINE (1 of 2) 11/08/2009 SCREENING FOR DIABETES 04/04/2023 12/01/2017 COVID-19 VACCINE ( season) 2023 03/31/2022, 07/12/2021, 02/11/2021, Additional history exists INFLUENZA VACCINE (#1) 2023 , 12/21/2021, 02/17/2021, Additional history exists DEPRESSION SCREENING 03/27/2024 DTAP/TDAP/TD VACCINES (2 - Td or Tdap) 03/31/2033 03/31/2023 Respiratory Syncytial Virus (RSV) Vaccine Pt: or over 60 yrs (1 - 1-dose 75+ series) 11/08/2034 HEPATITIS B VACCINE Aged Out No longe r eligible based on patient's age to complete this topic HIB VACCINE Aged Out No longer eligi ble based on patient's age to complete this topic HPV VACCINE Aged Out No longer eligi ble based on patient's age to complete this topic MENINGOCOCCAL (Group B) VACCINE Aged Out No longer eligible based on patient's age to complete this topic MENINGOCOCCAL VACCINE Aged Out No aleksandr missael eligible based on patient's age to complete this topic PNEUMOCOCCAL VACCINE Aged Out No long er eligible based on patient's age to complete this topic Procedures Procedure Name Priority Date/Time Associated Diagnosis Comments COMPREHENSIVE METABOLIC PANEL STAT 12/01/2017 8:46 PM CDT from Last 3 Months or Most Recently Relevant to Health Maintenance Results * (ABNORMAL) COMPREHENSIVE METABOLIC PANEL (12/01/2017 8:46 PM CDT) Glucose 223(H) 74 - 106 mg/dL 12/01/2017 9:08 PM CDT [facility] Sodium 136 136 - 145 mmol/L 12/01/2017 9:08 PM CDT [facility] Potassium 3.5 3.5 - 5.1 mmol/L 12/01/2017 9:08 PM CDT [facility] Chloride 101 98 - 107 mmol/L 12/01/2017 9:08 PM CDT [facility] CO2 31 22 - 31 mmol/L 12/01/2017 9:08 PM CDT [facility] Calcium 9.7 8.5 - 10.1 mg/dL 12/01/2017 9:08 PM CDT [facility] Anion Gap 4(L) 8 - 16 mmol/L 12/01/2017 9:08 PM CDT [facility] BUN 16 7 - 21 mg/dL 12/01/2017 9:08 PM CDT [facility] Creatinine 1.00 0.50 - 1.30 mg/dL 12/01/2017 9:08 PM CDT [facility] Alkaline Phosphatase 103 38 - 126 U/L 12/01/2017 9:08 PM CDT [facility] ALT 43 13 - 61 U/L 12/01/2017 9:08 PM CDT [facility] AST 14 5 - 40 U/L 12/01/2017 9:08 PM CDT [facility] Protein Total 8.9(H) 6.4 - [...] 3m2 12/01/2017 9:08 PM CDT [facility] Blood BLOOD SPECIMEN / Unknown Venipuncture / Unknown 12/01/2017 8:46 PM CDT 12/01/2017 8:47 PM CDT Chantel Rosado STORE PROMOTER-STONE TRIMMER LAB - CHEMI STRY ORDERABLES Performing Organization Address City/State/[facility] Co de Phone Number [facility] [address] [place] [address] from Last 3 Months or Most Recently Relevant to Health Maintenance Care Teams Metal Trimmer Relationship Specialty Start Date End Date Alphonso Echols MD [address] [address] PCP - General Internal Medicine 12/01/17
--- OUTSIDE RECORDS SUMMARY | 2024-05-02 09:30 | XMS_ITS | Clinical Summary ---
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 Gender Identity Not on file Sexual Orientation Not on file Plan of Treatment Health Maintenance Due Date Last Done Comments DIABETES ANNUAL FOOT EXAM 11/08/1977 DIABETES ANNUAL RETINAL EXAM 11/08/1977 DIABETES HBA1C Q 6 MONTHS 11/08/1977 DIABETES MICROALBUMIN ANNUAL SCREEN 11/08/1977 LDL CHOLESTEROL ANNUAL 11/08/1977 COLORECTAL SCREENING 11/08/2004 Colorectal Cancer Screening 11/08/2004 FIT-DNA Q 3 years 11/08/2004 FIT/FOBT Q 1 year 11/08/2004 Flex Sig/CT Colonography Q 5 years 11/08/2004 ZOSTER VACCINE (1 of 2) 11/08/2009 RSV VACCINE (60+ or ) (1 - Risk 60-74 years 1-dose series) 2019 INFLUENZA VACCINE (#1) 2023 1, 02/17/2021, 02/04/2020, Additional history exists DTAP/TDAP/TD VACCINES (2 - T d or Tdap) 03/31/2033 03/31/2023, 05/17/2017 Care Teams Education Paraprofessional Relationship Specialty Start Date End Date Conversion, History PCP - General 09/14/06
[2024-05-02 09:49] LABS: Hematocrit 42.7 % (42.0-52.0); Hemoglobin 14.1 g/dL (14.0-18.0); Mean Corpuscular Hemoglobin 32.9 pg (26-34); Mean Corpuscular Volume 99.5 fl (80-100); Mean Platelet Volume 10.5 fl (7.4-10.4); Platelet Count Result 241 k/mm3 (150-375); Red Blood Count 4.29 M/mm3 (4.6-6.20); Red Cell Distribution Width 13.5 % (11.5-14.5); White Blood Count 7.2 K/mm3 (4.5-10.0)
[2024-05-02 10:05] LABS: Cholesterol 115 mg/dL (0-200); HDL Direct 60 mg/dL; Triglycerides 120 mg/dL (<150)
[2024-05-02 10:06] LABS: Alanine Aminotransferase 22 U/L (6-50); Albumin Level 4.4 g/dL (3.5-5.1); Alkaline Phosphatase 96 U/L (38-126); Anion Gap 10 mmol/L (4-12); Aspartate Amino Transferase 28 U/L (17-59); Blood Urea Nitrogen 15 mg/dL (9-20); Calcium 9.4 mg/dL (8.4-10.2); Carbon Dioxide 26 mmol/L (22-30); Chloride 99 mmol/L (98-107); Estimated Glomerular Filt Rate > 60; Glucose 113 mg/dL (65-110); Potassium 4.2 mmol/L (3.4-5.0); Sodium 135 mmol/L (137-145)
[2024-05-02 10:15] LABS: LDL Cholesterol Direct 38 mg/dL
[2024-05-02 10:27] LABS: Creatinine Urine 53.1 mg/dL
[2024-05-02 10:33] LABS: MALB Creatinine Ratio 21.5 mg/g (0-30); Microalbumin Urine Random 11.4 mg/L (0-16.7)
[2024-05-02 10:35] LABS: Prostate Specific Antigen 0.3 ng/mL (< OR = 4.0)
[2024-05-02 10:43] LABS: Vitamin D 25 Hydroxy 32.7 ng/mL
== END 2024-05-02 09:19 | disposition home or self-care (01) ==
LOC: ANHLAB 09:19
PROVIDERS: PCP Internal Medicine; Visit Provider Internal Medicine Endocrinology, Diabetes & Metabolism
DX: E11.65 Type 2 diabetes mellitus with hyperglycemia (principal); Z79.4 Long term (current) use of insulin; E78.5 Hyperlipidemia, unspecified; E55.9 Vitamin D deficiency, unspecified; D64.9 Anemia, unspecified; I10 Essential (primary) hypertension; Z12.5 Encounter for screening for malignant neoplasm of prostate
CPT/HCPCS: 36415; 80053; 80061; 82043; 82306; 84153; 85027; G0103

== ENCOUNTER 2024-12-04 08:54 | Outpatient (CLI) | payer BC, SELFPAY ==
--- OUTSIDE RECORDS SUMMARY | 2024-12-04 09:28 | XMS_ITS | Encounter Summary ---
Author Organization [facility] Address 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
--- OUTSIDE RECORDS SUMMARY | 2024-12-04 09:28 | XMS_ITS | Encounter Summary ---
Author Organization [facility] Address [address] [place] [address] Care Team Providers Care Terry Cloth Cutter Hand Name Role Phone Conversion, History Primary Care [...] on file Legal Sex Male 4:17 AM SWATCH CUTTER Gender Identity Not on file Sexual Orientation Not on file documented as of this encounter Plan of Treatment Not on file documented as of this encounter Visit Diagnoses Diagnosis Open wound of lip, without mention of complication- Primary documented in this encounter Care Teams Terry Cloth Cutter Hand Relationship Specialty Start Date End Date Conversion, History PCP - General 09/14/06 documented as of this encounter
--- OUTSIDE RECORDS SUMMARY | 2024-12-04 09:28 | XMS_ITS | Clinical Summary ---
Author Organization [facility] Address [address] [place] [address] Phone [email or web address] Care Team Providers Care Polisher Dial Name Role Phone Unavailable Primary Care Provider [...] on file Legal Sex Male 12:18 AM LAMINATOR HAND Gender Identity Not on file Sexual Orientation Not on file Plan of Treatment Health Maintenance Due Date Last Done Comments CT Colonography 1959 Colonoscopy 1959 Colorectal Cancer Screening Combo 1959 DNA Cologuard 1959 Dental Cleaning/Exam 1959 FIT or FOBT Test 1959 HIV Screening 1959 Hepatitis C Screening 1959 Sigmoidoscopy 1959 Annual Preventive Exam 11/08/1977 Hep B Infection Screening - Triple Screen 11/08/1977 Tetanus Diphtheria and Pertu ssis Immunization (1 - Tdap) 11/08/1978 Pneumococcal: 65+ Years (1 o f 1 - PCV) 11/08/2009 Zoster Immunization (1 of 2) 11/08/2009 Covid-19 Immunization (1 - 2 -25 season) 2024 Influenza Immunization (#1) 2024 HIB Immunization Aged Out No longer e [...]
--- OUTSIDE RECORDS SUMMARY | 2024-12-04 09:28 | XMS_ITS | Encounter Summary ---
Author Organization [facility] Address 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 Gender Identity Not on file Sexual Orientation [...] DETECTED Not Detected 09/22/19 1:18 AM CDT [facility] PERFORMING LAB [facility] 09/21/2021 1:18 AM CDT [facility] Upper Respiratory Collection / Unknown 09/20/2021 9:27 AM CDT 09/20/2021 9:27 AM CDT Narrative [facility] - 09/21/2021 1:18 AM CDT This test [...] MICROBIOLOGY - GENERAL ORDERAB LES Final Result [facility] CLIA# [id number] [address] [place] [address] documented in this encounter Visit Diagnoses Not on filedocumented in this encounter Care Teams Duct Cleaner Relationship Specialty Start Date End Date Conversion, History PCP - General 09/14/06 documented as of this encounter
--- OUTSIDE RECORDS SUMMARY | 2024-12-04 09:28 | XMS_ITS | Encounter Summary ---
Author Organization [facility] Address [address] [place] [address] Care Team Providers Care Unit Aide Tech Name Role Phone Alphonso Echols MD Primary Care Provider Encounter Details Date Type Department Care Team (Late st Contact Info) Description 02/08/2023 Lab Requisition [facility] - DermPath Lab [address] [facility] [place] [address] Bhupendra Andres MD [address] [place] [address] Social History Tobacco Use Types Packs/Day Years Used Date Smoking Tobacco: Former Smokeless Tobacco: Never Alcohol Use Standard Drinks/Week Comments No 0 (1 standard drink = 0.6 oz pur e alcohol) Sex and Gender Information Value Date Recorded Sex Assigned at Not on file Legal Sex Male 12:58 PM STENCILER Gender Identity Not on file Sexual Orientation Not on file documented as of this encounter Plan of Treatment Not on file documented as of this encounter Procedures Procedure Name Priority Date/Time Associated Diagnosis Comments DERMATOPATHOLOGY Routine 02/07/2023 12:0 0 AM STENCILER documented in this encounter Results * DERMATOPATHOLOGY (02/07/2023 12:00 AM STENCILER) Case Report Dermatopathology Report Case: [id number] Authorizing Provider: Bhupendra Andres MD Collected: 02/07/2023 12:00 AM Ordering Location: [facility] DermPath Lab Received: 02/08/2023 09:22 AM Pathologist: Nicole Motley MD Specimen: Skin, left dorsal hand 3 2:11 PM [facility] DERMAT[facility]ATH[facility] Final Diagnosis Specimen A. 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 The specimen consists of a shave biopsy measuring 4x3x1 mm. Jar 0. 3 2:11 PM [facility] DERMATOPATHOLOGY [facility]OR[facility]ORY Microscopic Description Specimen A. SKIN, left dorsal hand: There is epidermal hyperplasia. Within the dermis, there are fibrohistiocytic cells in haphazard array among coarse collagen bundles. This lesion is present at the margin of the specimen. 3 2:11 PM [facility] DERMATOPATHOLOGY [facility]OR[facility]ORY Disclaimer An external and internal positive and negative controls are appropriate for the histochemical, immunohistochemical and immunofluorescence stain(s) in this case (if any), except where stated explicitly. The performance characteristics of the stain(s) cited in this report were developed and its performance characteristic determined by the Dermatopathology Laboratory at [facility], directed by Dr. Thiago Guerra. These tests need not be, and therefore are not, approved by the [place] Food and Drug Administration. The tests are used for clinical purposes. Billing Codes Specimen Charges Stain Charges 26535 1 3 2:11 PM [facility] DERMATOPATHOLOGY [facility] Embedded Images 3 2:11 PM [facility] D[facility]MATOPATH[facility]Y [facility] Pathology/Cytolog y TISSUE SPECIMEN FROM SKIN / Unknown 02/07/2023 02/08/2023 9:22 AM [facility] us Bhupendra Andres MD LAB - PATHOLOGY/CYTOLOGY ORDERAB LES Final Result DERMATOPATHOLOGY LABORATORY [facility] - Department of Dermatology [address] [phone] documented in this encounter Visit Diagnoses Not on filedocumented in this encounter Care Teams Unit Aide Tech Relationship Specialty Start Date End Date Alphonso Echols MD [address] [facility] [address] [place] [phone] PCP - General Internal Medicine 12/01/17 documented as of this encounter
--- OUTSIDE RECORDS SUMMARY | 2024-12-04 09:28 | XMS_ITS | Encounter Summary ---
Author Organization [facility] Address [address] [place] [address] Phone Care Team Providers Care Manager Cable Name Role Phone Alphonso Echols MD Primary Care Provider [phone] Encounter Details Date Type Department Care Team (Late st Contact Info) Description 05/29/2017 Orders Only [facility] ProviderSandrita MD [address] [place] [address] Social History Tobacco Use Types Packs/Day Years Used Date Smoking Tobacco: Former Smokeless Tobacco: Never Comments:Smoking History Pac ks/day: 1 Packs Alcohol Use Standard Drinks/Week Comments Yes 0 (1 standard drink = 0.6 oz pur e alcohol) Sex and Gender Information Value Date Recorded Sex Assigned at Not on file Legal Sex Male 8:37 AM MACHINE CLOTHING REPLACER Gender Identity Not on file Sexual Orientation Not on file documented as of this encounter Plan of Treatment Not on file documented as of this encounter Procedures Procedure Name Priority Date/Time Associated Diagnosis Comments DISCHARGE LABORATORY CUMULATIVE REPORT 05/29/2017 12:00 AM MACHINE CLOTHING REPLACER documented in this encounter Results * DISCHARGE LABORATORY CUMULATIVE REPORT (05/29/2017 12:00 AM MACHINE CLOTHING REPLACER) Narrative 05/29/2017 12:00 AM MACHINE CLOTHING REPLACER Ordered by an unspecified provider. Historical Provider LAB BLOOD ORDERABLES Saknia l Result documented in this encounter Visit Diagnoses Not on filedocumented in this encounter Care Teams Manager Cable Relationship Specialty Start Date End Date Alphonso Echols MD PCP - General Internal Medicine 05/29/17 documented as of this encounter
--- OUTSIDE RECORDS SUMMARY | 2024-12-04 09:28 | XMS_ITS | Clinical Summary ---
Author Organization [facility] Address [address] [place] [address] Care Team Providers Care Chuck Tender Name Role Phone Alphonso Echols MD Primary Care Provider [phone] Source Comments [facility],non-[facility] Affiliates and Associated Physician Practices is amultiple site organization consisting of ambulatory clinics and hospital sitesin [place], [place], [place] and [place]. This disclosure is being madepursuant to the Care Everywhere program and may not contain all information available regarding this patient. Last updated 17.[facility] [employer] Allergies No known active allergies Medications * Be aware that medications may not be up to date on this document. Alwaysverify current medications with the patient. 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, initial encounter Take 1 (one) capsule by mouth at bedtime 30 capsule 4 Active Active Problems No known active problems Immunizations Immunization Administration Dates Next Due TDAP (7yrs+) 03/31/2023 Social History Tobacco Use Types Packs/Day Years Used Date Smoking Tobacco: Former Smokeless Tobacco: Never Tobacco Cessation:Counseling Given: Not Answered Alcohol Use Standard Drinks/Week Comments Yes 0 (1 standard drink = 0.6 oz pur e alcohol) occ Sex and Gender Information Value Date Recorded Sex Assigned at Not on file Legal Sex Male 12:58 PM EMOTIONAL DISABILITIES TEACHER Gender Identity Not on file Sexual Orientation Not on file Last Filed Vital Signs Vital Sign Reading Time Taken Comments Blood Pressure 156/77 05/16/2023 12:58 PM EMOTIONAL DISABILITIES TEACHER Pulse 61 05/16/2023 12:58 PM EMOTIONAL DISABILITIES TEACHER Temperature 36.4 C (97.6 F) 03/30/2023 9:17 PM EMOTIONAL DISABILITIES TEACHER Respiratory Rate 24 03/30/2023 9:17 PM EMOTIONAL DISABILITIES TEACHER Oxygen Saturation 98% 05/16/2023 12:58 PM EMOTIONAL DISABILITIES TEACHER Inhaled Oxygen Concentration - - Weight 108.9 kg (240 lb) 05/16/2023 12:58 PM EMOTIONAL DISABILITIES TEACHER Height 165.1 cm (5' 5) 05/16/2023 12:58 PM EMOTIONAL DISABILITIES TEACHER Body Mass Index 39.94 05/16/2023 12:58 PM EMOTIONAL DISABILITIES TEACHER Plan of Treatment Health Maintenance Due Date [...] 2) 11/08/2009 SCREENING FOR DIABETES 04/04/2023 12/01/2017 DEPRESSION SCREENING 03/27/2024 AAA SCREENING 11/08/2024 COVID-19 VACCINE ( season) 2024 03/31/2022, 07/12/2021, 02/11/2021, Additional history exists INFLUENZA VACCINE (#1) 2024 , 12/21/2021, 02/17/2021, Additional history exists DTAP/TDAP/TD VACCINES (2 - Td or Tdap) [...] complete this topic MENINGOCOCCAL (Group B) VACCINE SHARED DECISION-MAKING Aged Out No longer eligible based on patient's age to complete this topic MENINGOCOCCAL GROUPS A/C/Y/W VACCINE Aged Out No longer eligible based on patient's age to complete this topic Procedures Procedure Name Priority Date/Time Associated Diagnosis Comments COMPREHENSIVE METABOLIC PANEL STAT 12/01/2017 8:46 PM CDT from Last 3 Months or Most Recently Relevant to Health Maintenance Results * (ABNORMAL) COMPREHENSIVE METABOLIC PANEL (12/01/2017 8:46 PM CDT) Glucose 223(H) 74 - 106 mg/dL 12/01/2017 9:08 PM CDT [facility] Sodium 136 136 - 145 mmol/L 12/01/2017 9:08 PM CDT [facility] Potassium 3.5 3.5 - 5.1 mmol/L 12/01/2017 9:08 PM CDT [facility] Chloride 101 98 - 107 mmol/L 12/01/2017 9:08 PM CDT [facility] CO2 31 22 - 31 mmol/L 12/01/2017 9:08 PM CDT [facility] Calcium 9.7 8.5 - 10.1 mg/dL 12/01/2017 9:08 PM CDT [facility] Anion Gap 4(L) 8 - 16 mmol/L 12/01/2017 9:08 PM CDT [facility] BUN 16 7 - 21 mg/dL 12/01/2017 9:08 PM CDT [facility] Creatinine 1.00 0.50 - 1.30 mg/dL 12/01/2017 9:08 PM CDT [facility] Alkaline Phosphatase 103 38 - 126 U/L 12/01/2017 9:08 PM CDT [facility] ALT 43 13 - 61 U/L 12/01/2017 9:08 PM CDT [facility] AST 14 5 - 40 U/L 12/01/2017 9:08 PM CDT [facility] Protein Total 8.9(H) 6.4 - 8.2 [...] CDT 12/01/2017 8:47 PM CDT Chantel Rosado ASSURANCE AUDITOR-RECYCLING OPERATOR LAB - CHEMISTRY ORD ERABLES Final Result [facility] [address] [place] [id number] from Last 3 Months or Most Recently Relevant to Health Maintenance Insurance [employer] GENERIC PAYOR GENERIC Care Teams Chuck Tender Relationship Specialty Start Date End Date Alphonso Echols MD [address] [phone] PCP - General Internal Medicine 12/01/17
--- OUTSIDE RECORDS SUMMARY | 2024-12-04 09:28 | XMS_ITS | Clinical Summary ---
Author Organization [facility] Address [address] [place] [address] Care Team Providers Care Construction Engineering Manager Name Role Phone Unavailable Primary Care Provider [...] 2nd Gen Pen Needle 32 gauge x 32 needle USE WITH INSULIN INJECTION TWICE DAILY [...] 36.1 C (97 F) 03/17/2021 1:57 PM EXTRACT MIXER Respiratory Rate - - Oxygen Saturation - - Inhaled Oxygen Concentration - - Weight - - Height - - Body Mass Index - - Plan of Treatment Health Maintenance Due Date Last Done Comments Scaling and Root Planing 1959 Periodontal Maintenance 12/31/2021 09/29/2021, 03/17, 09/23/2020 Dental Oral Exam 04/02/2022 09/29/2021, 03/17/2021, 09/23/2020 Dental X-Ray: Bitewings 04/02/2022 09/29/2021 Dental X-Ray: Full Mouth 09/27/2023 09/25/2020, 08/27 Dental X-Ray: Panoramic 09/27/2023 09/25/2020, 09/23 Procedures Procedure Name Priority Date/Time Associated Diagnosis Comments PERIODIC ORAL EVALUATION - ESTABLISHED PATIENT Routine 09/29/2021 9:00 AM CDT PERIO MAINTENANCE Routine 09/29/2021 9:0 0 AM CDT PANORAMIC RADIOGRAPHIC IMAGE Routine 09/23/2020 3:30 PM CDT INTRAORAL - COMPREHENSIVE SERIES OF RADIOGRAPHIC IMAGES Routine 09/23/2020 3:30 PM CDT from Last 3 Months or Most Recently Relevant to Health Maintenance [facility]
--- OUTSIDE RECORDS SUMMARY | 2024-12-04 09:28 | XMS_ITS | Encounter Summary ---
Author Organization [facility] Address [address] [place] [address] Care Team Providers Care Saw Feeder Name Role Phone Conversion, History Primary Care Provider Ciara dillon Encounter Details Date Type Department Care Team (Late st Contact Info) Description 10/06/2006 Outpatient Historical [facility] Support Serv. (Adt Cardiology[facility]) [address] [place] [address] Dandre Hernández MD [address] [facility] [address] [place] [address] Social History Tobacco Use Types Packs/Day Years Used Date Smoking Tobacco: Never Assessed Sex and Gender Information Value Date Recorded Sex Assigned at Not on file Legal Sex Male 4:17 AM DYNAMITE RECLAIMER Gender Identity Not on file Sexual Orientation Not on file documented as of this encounter Plan of Treatment Not on file documented as of this encounter Visit Diagnoses Not on filedocumented in this encounter Care Teams Saw Feeder Relationship Specialty Start Date End Date Conversion, History PCP - General 09/14/06 documented as of this encounter
--- OUTSIDE RECORDS SUMMARY | 2024-12-04 09:28 | XMS_ITS | Clinical Summary ---
Author Organization [facility] Address [address] [place] [address] Care Team Providers Care Chemical Technician Name Role Phone Alphonso Echols MD Primary Care Provider Allergies No known active allergies Medications amLODIPine (NORVASC) 10 mg tablet take 1 tablet by oral route every day 0 0 6 Active losartan-hydroch lorothiazide (HYZAAR) 100-25 mg per tablet take 1 tablet by oral route every day 0 0 6 Active sodium chloride 0.9 % solution for nebulization with albuterol 5 mg/mL solution for nebulization 0.6 mg/mL Take by nebulization Active glyBURIDE (DIABETA) 5 mg tablet glyburide 5 mg tablet TAKE 2 TABLETS BY MOUTH TWICE DAILY Active sildenafiL (VIAGRA) 50 mg tablet TK ONE T PO 30 MINUTES TO 4 HOURS PRIOR TO SEXUAL ACTIVITY 0 Active albuterol HFA (PROVENTIL HFA,VENTOLIN HFA,PROAIR HFA) 90 mcg/actuation inhaler albuterol sulfate HFA 90 mcg/actuation aerosol inhaler Active OneTouch Verio strip 0 Active Accu-Chek Fastclix Lancet Drum misc USE TO CHECK BLOOD SUGAR BID 0 Active meclizine (ANTIVERT) 25 mg tablet meclizine 25 mg tablet TK 1 T PO TID PRN Active OneTouch Delica Plus Lancet 30 gauge misc 0 Active ranolazine ER (RANEXA) 500 mg 12 hr tablet Take 1 tablet (500 mg total) by mouth 2 (two) times a day 0 Active lisinopriL (PRINIVIL,ZESTRI L) 20 mg tablet lisinopril 20 mg tablet TAKE 1 TABLET BY MOUTH DAILY Active traMADoL (ULTRAM) 50 mg tablet Active hydrOXYzine (ATARAX) 25 mg tablet hydroxyzine HCl 25 mg tablet Active pioglitazone (ACTOS) 45 mg tablet Active methylPREDNISolo ne (MEDROL DOSEPACK) 4 mg Dosepack TAKE DIRECTED YOU MAY USE A REFILL IF YOU HAVE FLARES IN THE FUTURE 21 tablet 1 Active cholecalciferol (VITAMIN D-3) 50,000 unit capsule Take by mouth 6 Active ezetimibe (ZETIA) 10 mg tablet ezetimibe 10 mg tablet 0 Active BD Shelby 2nd Gen Pen Needle 32 gauge x needle USE WITH INSULIN INJECTION TWICE DAILY 2 Active rosuvastatin (CRESTOR) 40 mg tablet Take 1 tablet (40 mg total) by mouth daily 2 Active metFORMIN (GLUCOPHAGE) 1,000 mg tablet Take 1 tablet (1,000 mg total) by mouth 2 (two) times a day 2 Active Jardiance 25 mg tablet Take 1 tablet (25 mg total) by mouth daily 2 Active TRESIBA 200 unit/mL (3 mL) pen for injection 2 Active Ozempic 2 mg/dose (8 mg/3 mL) pen injector injection Inject 2 mg under the skin once a week 3 Active FreeStyle Yaz 2 Sensor kit as directed 3 Active glimepiride (AMARYL) 4 mg tablet Take 1 tablet (4 mg total) by mouth daily 3 Active methylPREDNISolo ne (Medrol, Anibal,) 4 mg Dosepack follow package directions 1 packet 3 Active HumaLOG 100 unit/mL pen for injection 3 Active HYDROcodone-acet aminophen (NORCO) 5-325 mg per tablet Take 1 tablet by mouth every 8 (eight) hours 3 Active diclofenac sodium (VOLTAREN) 1 % gel APPLY TOPICALLY TO AFFECTED AREA TWICE DAILY 3 Active fluorouraciL (EFUDEX) 5 % cream 3 Active Space Chamber with Large Mask spacer as directed 3 Active meloxicam (MOBIC) 15 mg tablet Take 1 tablet by mouth once daily 30 tablet 4 Active Nexletol 180 mg tablet Take 1 tablet by mouth daily 4 Active Toshia Aspirin 325 mg enteric coated tablet Take 1 tablet (325 mg total) by mouth daily 90 tablet 4 Active folic acid (FOLVITE) 1 mg tablet Take 1 tablet by mouth once daily 30 tablet 11 4 Active Mounjaro 2.5 mg/0.5 mL pen injector injectionIndicat ions:pt is taking 12.5 once a week Active methotrexate 2.5 mg tablet TAKE 7 TABLETS BY MOUTH ONCE A WEEK 84 tablet 5 Active ammonium lactate (LAC-HYDRIN) 12 % lotion APPLY ONCE DAILY TO BOTTOM OF FEET DAILY Active Active Problems Problem Noted Date Diagnosed Date Carpal tunnel syndrome 07/10/2024 Hernia of anterior abdominal wall 07/10/2024 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 Overview (07/10/2024): treated Neuropathy 07/10/2024 Plantar fasciitis 07/10/2024 Vertigo 07/10/2024 Benign essential hypertension 07/10/2024 Osteoarthritis 07/10/2024 Hand pain 07/10/2024 Sebaceous cyst 04/09/2024 Osteoarthritis of right knee 12/26/2023 Acute sinusitis 12/13/2023 Arthralgia of right knee 12/13/2023 Nausea 10/19/2023 Acute bronchitis 02/28/2023 Fracture of thoracic spine 10/27/2022 Thoracic back pain 10/27/2022 Cellulitis 07/21/2021 Hypertriglyceridemia 10/15/2020 Anemia 06/17/2020 Erectile dysfunction 06/17/2020 Fatigue 03/06/2018 Chronic pain of right knee 10/28/2016 Morbid obesity with body mas s index (BMI) of 40.0 to 44.9 in adult 07/18/2016 Overview (08/19/2016): Morbid obesity with BMI of 40.0-44.9, adult Shoulder pain 07/18/2016 Overview (08/19/2016): Chronic pain of both shoulders Vitamin D deficiency 01/06/2016 Drug indicated 03/16/2015 Overview (07/01/2016): Encounter for long-term (current) use of high-risk medication Sick sinus syndrome 03/09/2015 Chronic obstructive pulmonary disease 08/14/2014 Other forms of dyspnea 08/14/2014 Rheumatoid arthritis 08/10/2013 Overview (07/01/2016): Rheumatoid arthritis Hypertension 08/10/2013 Overview (07/01/2016): HTN (hypertension) Sleep apnea 12/17/2012 Hyperlipidemia 05/25/2012 Overview (07/01/2016): Hyperlipidemia Diabetes mellitus 01/09/2012 Overview (07/01/2016): Diabetes mellitus Chest pain, unspecified 01/09/2012 Sick sinus syndrome 01/09/2012 Essential (primary) hypertension 01/09/2012 Obesity 01/09/2012 Encounters Date Type Department Care Team Description 10/16/2024 12:43 PM CDT - 10/16/2024 11:59 PM CDT Hospital Encounter [address] [place] [id number] Discharge Disposition: Discharge to home or self care 10/16/2024 11:00 AM CDT Office Visit [facility] [address] [place] [id number] Farida Serrano MD Rheumatoid arthritis with positive rheumatoid factor, involving unspecified site (HCC) (Primary Dx); Long-term use of high-risk medication; Morbid obesity with body mass index (BMI) of 40.0 to 44.9 in adult (HCC); Primary osteoarthritis involving multiple joints from Last 3 Months Immunizations Immunization Administration Dates Next Due Influenza LAIV (Nasal) 02/04/2020,2018,01/22/2018,02/14 Influenza, Quadrivalent, Hig h Dose, Preservative Free, Intrr 02/17/2021 Influenza, Quadrivalent, Spl it, Intramuscular 02/04/2020,02/19/2019,02/15/2016 Influenza, Quadrivalent, Spl it, Preservative Free, Intramuscular 12/13/2022,12/21/2021,02/04/2020,01/22 Influenza, Trivalent, High D ose, Split, Preservative Free, Intramuscular 02/21/2017,03/09/2015 Influenza, Trivalent, Preser vative Free, Intramuscular 01/17/2024,02/17/2021,02/04/2020,02/08 Influenza, Trivalent, Split, Preservative Free, Intradermal 01/17/2014 Influenza, Unspecified 01/24/2019 Pfizer SARS-CoV-2 Monovalent Vaccination (12+ Yrs) PURPLE 02/11/2021,06/30/2020,06/09/2020 Pneumococcal Conjugate PCV 13 02/19/2019 Pneumococcal Polysaccharide PPV23 02/25/2022, Sars-CoV-2, Unspecified 06/30/2020,06/09/2020 TD Preservative Free 05/17/2017 Td, adsorbed 05/17/2017 Tdap 03/31/2023 Family History Medical History Relation Name Comments Other Father Alive and well; /Other; Hypertension Mother Hypertension; Relation Name Status Comments Father Mother Alive Social History Tobacco Use Types Packs/Day Years [...] on file Legal 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 Gender Identity Not on file Sexual Orientation Not on file Obstetrics History Last Filed Vital Signs Vital Sign Reading Time Taken Comments Blood Pressure 126/80 10/16/2024 10:34 AM CDT Pulse 64 10/16/2024 10:34 AM CDT Temperature 37.1 C (98.8 F) 10/16/2024 10:34 AM CDT Respiratory Rate 20 10/16/2024 10:34 AM CDT Oxygen Saturation 98% 10/16/2024 10:34 AM CDT Inhaled Oxygen Concentration - - Weight 105.7 kg (233 lb) 10/16/2024 10:34 AM CDT Height 165.1 cm (5' 5) 10/16/2024 10:34 AM CDT Body Mass Index 38.77 10/16/2024 10:34 AM CDT Plan of Treatment Health Maintenance Due Date Last Done Comments Albumin Creatinine Ratio, Urine 1959 Colon Cancer Screening-Colonoscopy 1959 Fall Risk Assessment 1959 Hemoglobin A1C 1959 Hepatitis C Screening 1959 Prostate Cancer Screening-PSA 1959 Dilated Eye Exam 1959 Foot Exam 1959 Lipid Panel 1959 Hepatitis B Screening 11/08/1977 Zoster Vaccine (1 of 2) 11/08/1978 Depression Screening 05/01/2019 05/01/2018 Abdominal Aortic Aneurysm (A AA) Screen 11/08/2024 Well Visit 65+ 11/08/2024 Covid-19 Vaccine (6 - 2024-2 6 season) 2024 02/11/2021, 06/30/2020, 06/30/2020, Additional history exists Influenza Vaccine (#1) 2024 , 12/13/2022, 12/21/2021, Additional history exists eGFR 10/16/2025 10/16/2024, 06/25, 04/25/2024, Additional history exists Pneumococcal vaccine 65+ (4 of 4 - PCV20 or PCV21) 02/25/2027 02/25/2022, 02/19/2019, 02/15/2016 DTaP/Tdap/Td Vaccine (2 - Td or Tdap) 03/31/2033 03/31/2023, 05/17/2017, 05/17/2017 Procedures Procedure Name Priority Date/Time Associated Diagnosis Comments EGFR Routine 10/16/2024 12:18 PM CDT Long-term use of high-risk medication CBC WITHOUT DIFFERENTIAL Routine 10/16/2024 12:18 PM CDT Long-term use of high-risk medication COMPREHENSIVE METABOLIC PANEL Routine 10/16/2024 12:18 PM CDT Long-term use of high-risk medication ERYTHROCYTE SEDIMENTATION RATE Routine 10/16/2024 12:18 PM CDT Rheumatoid arthritis with positive rheumatoid factor, involving unspecified site (HCC) from Last 3 Months Results * eGFR (10/16/2024 12:18 PM CDT) eGFR >90 >=60 mL/min/1. 73 m2 Comment: [...] interpretive data was last reviewed 2021. Blood 10/16/2024 12:1 8 PM CDT 10/16/2024 4:21 PM CDT us Farida Serrano MD LAB BLOOD ORDERABLES Final Result [facility] [address] Department [place] [address] * Erythrocyte sedimentation rate (10/16/2024 12:18 PM CDT) [facility] Erythrocyte sedimentation rate 9 1 - 20 mm/hr Blood 10/16/2024 12:1 8 PM CDT 10/16/2024 4:19 PM CDT Farida Serrano MD LAB BLOOD ORDERABLES Final Result Performing Organization Address City/[facility] Co de Phone Number [facility] [address] Department [place] [address] * (ABNORMAL) CBC without differential (10/16/2024 12:18 PM CDT) [facility] WBC 7.69 3.80 - 9.90 K/cumm Hgb 13.9 13.0 - 17.5 g/dL [facility] Hct 42.9 38.9 - 50.3 % [facility] Plt 208 150 - 400 K/cumm [facility] MPV 11.7 9.1 - 12.3 fL [facility] RBC 4.15(L) 4.30 - 5.80 M/cumm [facility] MCV 103.4(H) 81.3 - 96.4 fL [facility] MCH 33.5(H) 27.1 - 33.3 pg [facility] MCHC 32.4 32.3 - 35.7 g/dL [facility] RDW CV 14.1 11.1 - 14.9 % [facility] RDW SD 54.0(H) 35.7 - 48.1 fL [facility] NRBC abs 0.00 0.00 - 0.01 K/cumm [facility] Blood 10/16/2024 12:1 8 PM CDT 10/16/2024 4:19 PM CDT Farida Serrano MD LAB BLOOD ORDERABLES Final Result Performing Organization Address City/[facility] Co de Phone Number [facility] [address] Department [place] [address] * (ABNORMAL) Comprehensive metabolic panel (10/16/2024 12:18 PM CDT) Sodium 140 135 - 145 mmol/L Potassium, pl 4.0 3.3 - 4.9 mmol/L [facility] Chloride 104 97 - 110 mmol/L [facility] CO2 24 22 - 32 mmol/L [facility] Anion gap 12 2 - 15 mmol/L [facility] BUN 8 6 - 25 mg/dL [facility] Creatinine 0.54(L) 0.80 - 1.30 mg/dL [facility] Glucose 93 70 - 199 mg/dL [facility] Comment: Interpretive Data Fasting glucose >/= 126 [...] interpretive data was last revised 2022. Calcium 9.0 8.5 - 10.3 mg/dL [facility] Bilirubin, total 0.5 0.1 - 1.2 mg/dL [facility] Protein, pl 6.5 6.5 - 8.5 g/dL [facility] Albumin 4.0 3.5 - 5.0 g/dL [facility] Alk phos 100 40 - 130 Units/L [facility] ALT 40 7 - 55 Units/L [facility] AST 30 10 - 50 Units/L [facility] Blood 10/16/2024 12:1 8 PM CDT 10/16/2024 4:21 PM CDT Farida Serrano MD LAB BLOOD ORDERABLES Final Result [facility] [address] Department [place] [address] from Last 3 Months Insurance ANTHEM ACCESS ANTHEM ACCESS CHOICE Care Teams Chemical Technician Relationship Specialty Start Date End Date Alphonso Echols MD PCP - General Internal Medicine 05/29/17
--- OUTSIDE RECORDS SUMMARY | 2024-12-04 09:28 | XMS_ITS | Clinical Summary ---
Author Organization 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
--- OUTSIDE RECORDS SUMMARY | 2024-12-04 09:28 | XMS_ITS | Encounter Summary ---
Author Organization [facility] Address 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 Gender Identity Not on file Sexual Orientation [...] Negative Presumptive Negative 09/25/2021 9:31 AM CDT [facility] Upper Respiratory ANTERIOR NARES SWAB / Unknown Collection / Unknown 09/25/2021 9:05 AM CDT 09/25/2021 9:10 AM CDT Narrative [email or web address] - 09/25/2021 9:31 AM CDT [...] - GENERAL ORDERAB LES Final Result [email or web address] CLIA# [id number] [address] [place] [address] documented in this encounter Visit Diagnoses Not on filedocumented in this encounter Care Teams Radio Station Manager Relationship Specialty Start Date End Date Conversion, History PCP - General 09/14/06 documented as of this encounter
--- OUTSIDE RECORDS SUMMARY | 2024-12-04 09:28 | XMS_ITS | Clinical Summary ---
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 Gender Identity Not on file Sexual Orientation Not on file Plan of Treatment Health Maintenance Due Date Last Done Comments Hepatitis C Virus (HCV) Screening 1960 TdaP Immunization 1960 Cologuard 11/08/2004 Colonoscopy 11/08/2004 Colorectal Cancer Screening 11/08/2004 Immunochemical Fecal Occult Blood 11/08/2004 Zoster Immunization (1 of 2) 11/08/2009 SARS-COV-2 Immunization ( season) 2023 02/11/2021, 06/30/2020, 06/09/2020 Pneumococcal Immunization (50+ years) (3 of 3 - PCV20 or PCV21) 02/20/2024 02/19/2019, 02/15/2016 Influenza Immunization (#1) 11/25/202401/26, 02/04/2020, 02/19/2019, Additional history exists Respiratory Syncytial Virus (RSV) Immunization (Adult) (1 - 1-dose 75+ series) 11/08/2034 DTaP/Tdap/Td Immunization Discontinued 05/17/2017 Pneumococcal Immunization Combined Discontinued 02/19/2019, 02/15/2016 Hepatitis B Immunization Aged Out No longer eligible based on patient's age to complete this topic Human Papillomavirus (HPV) Immunization Aged Out No longer eligible based on patient's age to complete this topic Meningococcal Immunization (ACWY) Aged Out No longer eligible based on patient's age to complete this topic Rotavirus Immunization Aged Out No lo nger eligible based on patient's age to complete this topic
--- OUTSIDE RECORDS SUMMARY | 2024-12-04 09:28 | XMS_ITS | Encounter Summary ---
Author Organization [facility] Address [address] [place] [address] Care Team Providers Care Envelope Maker Name Role Phone Unavailable Primary Care Provider Unavailabl e Prior Encounters Date Type Department Care Team Description 09/29/2021 Travel 09/29/2021 9:00 AM CDT Office Visit [facility] [address] [place] [address] Juan Jose Ramirez DDS 09/29/2021 9:00 AM CDT Office Visit [facility] [address] [place] [address] Alena Mishra, [facility] 04/07/2021 Travel 04/07/2021 8:00 AM SALES ENABLEMENT SPECIALIST Office Visit [facility] [address] [place] [address] Betsy De Luna DMD 03/17/2021 Travel 03/17/2021 2:00 PM SALES ENABLEMENT SPECIALIST Office Visit [facility] [address] [place] [address] Alena Mishra, [facility] 03/17/2021 2:00 PM SALES ENABLEMENT SPECIALIST Office Visit [facility] [address] [place] [address] Betsy De Luna DMD 09/23/2020 Travel 09/23/2020 3:30 PM CDT Office Visit [facility] [address] [place] [address] Betsy De Luna, LALITHA Last Filed Vital Signs Vital Sign Reading Time Taken Comments Blood Pressure 132/69 09/29/2021 8:39 AM CDT Pulse 60 09/29/2021 8:39 AM CDT Temperature 36.1 C (97 F) 03/17/2021 1:57 PM SALES ENABLEMENT SPECIALIST Respiratory Rate - - Oxygen Saturation - - Inhaled Oxygen Concentration - - Weight - - Height - - Body Mass Index - - Plan of Treatment Not on file Procedures Procedure Name Priority Date/Time Associated Diagnosis Comments PERIO MAINTENANCE Routine 09/29/2021 9: 00 AM CDT TOPICAL APPLICATION OF FLUORIDE EXCLUDING VARNISH Routine 09/29/2021 9:00 AM CDT BITEWINGS - FOUR RADIOGRAPHIC IMAGES Routine 09/29/2021 9:00 AM CDT PERIODIC ORAL EVALUATION - ESTABLISHED PATIENT Routine 09/29/2021 9:00 AM CDT 19 CEREC PROF CRTSY Routine 04/07/2021 8 :00 AM SALES ENABLEMENT SPECIALIST NC X-RAY Routine 04/07/2021 8:00 AM SALES ENABLEMENT SPECIALIST 19 CEMENT CROWN Routine 04/07/2021 8:00 AM SALES ENABLEMENT SPECIALIST TOPICAL APPLICATION OF FLUORIDE VARNISH Routine 03/17/2021 2:00 PM SALES ENABLEMENT SPECIALIST ORAL HYGIENE INSTRUCTIONS Routine 2020 2:00 PM SALES ENABLEMENT SPECIALIST PERIO MAINTENANCE Routine 03/17/2021 2:0 0 PM SALES ENABLEMENT SPECIALIST PERIODIC ORAL EVALUATION - ESTABLISHED PATIENT Routine 03/17/2021 2:00 PM SALES ENABLEMENT SPECIALIST TOPICAL APPLICATION OF FLUORIDE VARNISH Routine 09/23/2020 [...] CDT Visit Diagnoses Not on file Insurance [employer] [place] [employer] [place] P[place]
--- NOTE | 2024-12-04 09:40 | NEURO_ITS ---
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 ? # Left Ulnar Neuropathy around the elbow ? # Mild evolving Carpal Tunnel Syndrome bilaterally. ? # Normal Needle/ EMG exam. Nerve Conduction Studies ?Stim Site NR Peak (ms) P-T Amp (?V) Site1 Site2 Delta-P (ms) Dist (cm) Kamran (m/s) Left Median Anti Sensory (2-3nd Digit) Wrist ? 3.7 15.5 Wrist 2-3nd Digit 3.7 14.0 38 Wrist ? 3.5 14.2 Wrist 2-3nd Digit 3.7 14.0 38 Right Median Anti Sensory (2-3nd Digit) Wrist ? 3.4 14.7 Wrist 2-3nd Digit 3.4 14.0 41 Wrist ? 3.4 14.3 Wrist 2-3nd Digit 3.4 14.0 41 Left Radial Anti Sensory (Base 1st Digit) Wrist ? 2.4 3.9 Wrist Base 1st Digit 2.4 0.0 Right Radial Anti Sensory (Base 1st Digit) Wrist ? 2.2 10.1 Wrist Base 1st Digit 2.2 0.0 Left Ulnar Anti Sensory (5th Digit) Wrist ? 2.3 16.3 Wrist 5th Digit 2.3 14.0 61 Right Ulnar Anti Sensory (5th Digit) Wrist ? 2.6 15.1 Wrist 5th Digit 2.6 14.0 54 ?Stim Site NR Onset (ms) O-P Amp (mV) Site1 Site2 Delta-0 (ms) Dist (cm) Kamran (m/s) Left Median Motor (Abd Poll Brev) Wrist ? 4.4 2.9 Elbow Wrist 4.4 27.0 61 Elbow ? 8.8 2.4 Right Median Motor (Abd Poll Brev) Wrist ? 4.4 3.2 Elbow Wrist 4.6 26.0 57 Elbow ? 9.0 3.3 Left Ulnar Motor (Abd Dig Minimi) Wrist ? 2.6 7.9 A Elbow Wrist 5.2 28.0 54 A Elbow ? 7.8 6.5 B Elbow Wrist 4.4 23.0 52 B Elbow ? 7.0 4.3 Right Ulnar Motor (Abd Dig Minimi) Wrist ? 3.0 5.0 A Elbow Wrist 4.3 28.0 65 A Elbow ? 7.3 4.7 B Elbow Wrist 3.0 19.0 63 B Elbow ? 6.0 3.9 F Wave Studies ?NR F-Lat (ms) L-R F-Lat (ms) Left Median (Mrkrs) (Abd Poll Brev) ? 29.86 1.81 Right Median (Mrkrs) (Abd Poll Brev) ? 31.68 1.81 Left Ulnar (Mrkrs) (Abd Dig Min) ? 28.95 1.48 Right Ulnar (Mrkrs) (Abd Dig Min) ? 27.46 1.48 Electromyography ?Side Muscle Nerve Root Ins Act Fibs Amp Dur Recrt Comment Right 1stDorInt Ulnar C8-T1 Nml Nml Nml Nml Nml Right Ext Indicis Radial (Post Int) C7-8 Nml Nml Nml Nml Nml Right Ext Digitorum Radial (Post Int) C7-8 Nml Nml Nml Nml Nml Right BrachioRad Radial C5-6 Nml Nml Nml Nml Nml Right PronatorTeres Median C6-7 Nml Nml Nml Nml Nml Right Abd Poll Brev Median C8-T1 Nml Nml Nml Nml Nml Right ABD Dig Min Ulnar C8-T1 Nml Nml Nml Nml Nml Right FlexPolLong Median (Ant Int) C7-8 Nml Nml Nml Nml Nml Right Abd Poll Long Radial (Post Int) C7-8 Nml Nml Nml Nml Nml Left 1stDorInt Ulnar C8-T1 Nml Nml Nml Nml Nml Left Ext Indicis Radial (Post Int) C7-8 Nml Nml Nml Nml Nml Left Ext Digitorum Radial (Post Int) C7-8 Nml Nml Nml Nml Nml Left BrachioRad Radial C5-6 Nml Nml Nml Nml Nml Left PronatorTeres Median C6-7 Nml Nml Nml Nml Nml Left Abd Poll Brev Median C8-T1 Nml Nml Nml Nml Nml Left ABD Dig Min Ulnar C8-T1 Nml Nml Nml Nml Nml Left FlexPolLong Median (Ant Int) C7-8 Nml Nml Nml Nml Nml Left Abd Poll Long Radial (Post Int) C7-8 Nml Nml Nml Nml Nml
== END 2024-12-04 08:55 | disposition home or self-care (01) ==
LOC: ANHNEURO 08:56
PROVIDERS: Visit Provider Plastic Surgery
DX: G56.03 Carpal tunnel syndrome, bilateral upper limbs (principal); G56.22 Lesion of ulnar nerve, left upper limb
CPT/HCPCS: 95886; 95911

== ENCOUNTER 2025-01-23 10:10 | Outpatient (CLI) | payer BC, SELFPAY ==
[2025-01-23 11:03] LABS: Anion Gap 7 mmol/L (4-12); Blood Urea Nitrogen 14 mg/dL (9-20); Calcium 8.5 mg/dL (8.4-10.2); Carbon Dioxide 26 mmol/L (22-30); Chloride 102 mmol/L (98-107); Estimated Glomerular Filt Rate > 60; Glucose 170 mg/dL (65-110); Potassium 3.9 mmol/L (3.4-5.0); Sodium 135 mmol/L (137-145)
--- OUTSIDE RECORDS SUMMARY | 2025-01-23 11:11 | XMS_ITS | Clinical Summary ---
Author Organization [facility] Address [address] [place] [address] Care Team Providers Care Porcelain Enameler Name Role Phone Alphonso Echols MD Primary Care Provider [phone] Allergies No known active allergies Medications amLODIPine [...] by mouth daily 90 tablet 4 Active Mounjaro 2.5 mg/0.5 mL pen injector injectionIndicat ions:pt is taking 12.5 once a week Active methotrexate 2.5 mg tablet TAKE 7 TABLETS BY MOUTH ONCE A WEEK 84 tablet 5 Active ammonium lactate (LAC-HYDRIN) 12 % lotion APPLY ONCE DAILY TO BOTTOM OF FEET DAILY Active folic acid (FOLVITE) 1 mg tablet Take 1 tablet (1,000 mcg total) by mouth daily 30 tablet 11 5 Active Active Problems Problem Noted Date Diagnosed [...] 01/09/2012 Essential (primary) hypertension 01/09/2012 Obesity 01/09/2012 Immunizations Immunization Administration Dates Next Due Influenza [...] on file Legal Sex Male 8:37 AM ARCHITECTURE INTERNSHIP Gender Identity Not on file Sexual Orientation [...] PM CDT Long-term use of high-risk medication from Last 3 Months or Most Recently Relevant to Health Maintenance Results * eGFR (10/16/2024 12:18 PM CDT) [...] Serrano MD LAB BLOOD ORDERABLES Final Result [facility] [address] Department [place] [address] from Last 3 Months or Most Recently Relevant to Health Maintenance Insurance ANTHEM ACCESS ANTHEM ACCESS CHOICE Care Teams Porcelain Enameler Relationship Specialty Start Date End Date Alphonso Echols MD PCP - General Internal Medicine 05/29/17
--- OUTSIDE RECORDS SUMMARY | 2025-01-23 11:11 | XMS_ITS | Encounter Summary ---
Author Organization [facility] Address [address] [place] [address] Care Team Providers Care Green Chain Puller Name Role Phone Alphonso Echols MD Primary Care Provider Encounter Details Date Type Department Care Team (Late st Contact Info) Description 02/08/2023 Lab Requisition [facility] - DermPath Lab [address] [place] [address] Bhupendra Andres MD [address] [place] [address] Social History Tobacco Use Types Packs/Day Years Used Date Smoking Tobacco: Former Smokeless Tobacco: Never Alcohol Use Standard Drinks/Week Comments No 0 (1 standard drink = 0.6 oz pur e alcohol) Sex and Gender Information Value Date Recorded Sex Assigned at Not on file Legal Sex Male 12:58 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 Gender Identity Not on file Sexual Orientation Not on file documented as of this encounter Plan of Treatment Not on file documented as of this encounter Procedures Procedure Name Priority Date/Time Associated Diagnosis Comments DERMATOPATHOLOGY Routine 02/07/2023 12:0 0 AM HOUSEKEEPING DEPARTMENT WORKER documented in this encounter Results * DERMATOPATHOLOGY (02/07/2023 12:00 AM HOUSEKEEPING DEPARTMENT WORKER) Case Report Dermatopathology Report Case: [id number] Authorizing Provider: Bhupendra Andres MD Collected: 02/07/2023 12:00 AM Ordering Location: [facility] DermPath Lab Received: 02/08/2023 09:22 AM Pathologist: Nicole Motley MD Specimen: Skin, left dorsal hand 3 2:11 PM [facility] DERMATOPATHOLOGY [facility]ORATORY Final Diagnosis Specimen A. SKIN, left dorsal hand: DERMATOFIBROMA (D23.9) PRESENT AT MARGIN 3 2:11 PM [facility] DERMATOPATHOLOGY LABORATORY at [address] HOUSEKEEPING DEPARTMENT WORKER Clinical History Papule R/O Neoplasm Check Margin 3 2:11 PM [facility] DERMATOPATHOLOGY [facility]ORATORY Gross Description Specimen A: Received is one formalin filled container labeled with the patient's name and designated left dorsal hand. The specimen consists of a shave biopsy measuring 4x3x1 mm. Jar 0. 3 2:11 PM [facility] DERMATOPATHOLOGY [facility]ORATORY Microscopic Description Specimen A. SKIN, left dorsal hand: There is epidermal hyperplasia. Within the dermis, there are fibrohistiocytic cells in haphazard array among coarse collagen bundles. This lesion is present at the margin of the specimen. 3 2:11 PM [facility] DERMATOPATHOLOGY LABORATORY Disclaimer An external and internal positive and negative controls are appropriate for the histochemical, immunohistochemical and immunofluorescence stain(s) in this case (if any), except where stated explicitly. The performance characteristics of the stain(s) cited in this report were developed and its performance characteristic determined by the Dermatopathology Laboratory at [facility], directed by Dr. Thiago Guerra. These tests need not be, and therefore are not, approved by the [place] Food and Drug Administration. The tests are used for clinical purposes. Billing Codes Specimen Charges Stain Charges 04006 1 3 2:11 PM [facility] DERMATOPATHOLOGY [facility]ORATORY Embedded Images 3 2:11 PM [facility] DERMATOPATHOLOGY [facility]ORATORY Pathology/Cytolog y TISSUE SPECIMEN FROM SKIN / Unknown 02/07/2023 02/08/2023 9:22 AM [facility] us Bhupendra Andres MD LAB - PATHOLOGY/CYTOLOGY ORDERAB LES Final Result DERMATOPATHOLOGY LABORATORY [facility] - Department of Dermatology [address] [phone] documented in this encounter Visit Diagnoses Not on filedocumented in this encounter Care Teams Green Chain Puller Relationship Specialty Start Date End Date Alphonso Echols MD [address] [place] [id number] PCP - General Internal Medicine 12/01/17 documented as of this encounter
--- OUTSIDE RECORDS SUMMARY | 2025-01-23 11:11 | XMS_ITS | Encounter Summary ---
Author Organization [facility] Address [address] [place] [address] Care Team Providers Care Regulatory Submissions Specialist Name Role Phone Conversion, History Primary Care [...] on file Legal Sex Male 4:17 AM BROTH SETTER Gender Identity Not on file Sexual Orientation [...] Primary documented in this encounter Care Teams Regulatory Submissions Specialist Relationship Specialty Start Date End Date Conversion, History PCP - General 09/14/06 documented as of this encounter
--- OUTSIDE RECORDS SUMMARY | 2025-01-23 11:11 | XMS_ITS | Encounter Summary ---
Author Organization [facility] Address [address] [place] [address] Care Team Providers Care Fish Liver Sorter Name Role Phone Unavailable Primary Care Provider Unavailabl e Prior Encounters Date Type Department Care Team Description 09/29/2021 Travel 09/29/2021 9:00 AM CDT Office Visit [facility] [address] [place] [address] Juan Jose Ramirez DDS 09/29/2021 9:00 AM CDT Office Visit [facility] [address] [place] [address] Alena Mishra, [facility] 04/07/2021 Travel 04/07/2021 8:00 AM FACSIMILE MACHINE OPERATOR Office Visit [facility] [address] [place] [address] Betsy De Luna DMD 03/17/2021 Travel 03/17/2021 2:00 PM FACSIMILE MACHINE OPERATOR Office Visit [facility] [address] [place] [address] Alena Mishra, [facility] 03/17/2021 2:00 PM FACSIMILE MACHINE OPERATOR Office Visit [facility] [address] [place] [address] Betsy De Luna DMD 09/23/2020 Travel 09/23/2020 3:30 PM CDT Office Visit [facility] [address] [place] [address] Betsy De Luna, LALITHA Last Filed Vital Signs Vital Sign Reading Time Taken Comments Blood Pressure 132/69 09/29/2021 8:39 AM CDT Pulse 60 09/29/2021 8:39 AM CDT Temperature 36.1 C (97 F) 03/17/2021 1:57 PM FACSIMILE MACHINE OPERATOR Respiratory Rate - - Oxygen Saturation - [...] PROF CRTSY Routine 04/07/2021 8 :00 AM FACSIMILE MACHINE OPERATOR NC X-RAY Routine 04/07/2021 8:00 AM FACSIMILE MACHINE OPERATOR 19 CEMENT CROWN Routine 04/07/2021 8:00 AM FACSIMILE MACHINE OPERATOR TOPICAL APPLICATION OF FLUORIDE VARNISH Routine 03/17/2021 2:00 PM FACSIMILE MACHINE OPERATOR ORAL HYGIENE INSTRUCTIONS Routine 2020 2:00 PM FACSIMILE MACHINE OPERATOR PERIO MAINTENANCE Routine 03/17/2021 2:0 0 PM FACSIMILE MACHINE OPERATOR PERIODIC ORAL EVALUATION - ESTABLISHED PATIENT Routine 03/17/2021 2:00 PM FACSIMILE MACHINE OPERATOR TOPICAL APPLICATION OF FLUORIDE VARNISH Routine 09/23/2020 [...] CDT Visit Diagnoses Not on file Insurance [facility] [place] PPO
--- OUTSIDE RECORDS SUMMARY | 2025-01-23 11:12 | XMS_ITS | Clinical Summary ---
Author Organization [facility] Care Team Providers Care Farmworker Animal Name Role Phone Unavailable Primary Care Provider Unavailabl e Social History Tobacco Use Types Packs/Day Years Used Date Smoking Tobacco: Never Assessed Sex and Gender Information Value Date Recorded Sex Assigned at Not on file Legal Sex Male 3:57 PM PRECISION LENS GRINDER Gender Identity Not on file Sexual Orientation Not on file Plan of Treatment Health Maintenance Due Date Last Done Comments Hepatitis C Virus (HCV) Screening 1960 TdaP Immunization 1960 Cologuard 11/08/2004 Colonoscopy 11/08/2004 Colorectal Cancer Screening 11/08/2004 Immunochemical Fecal Occult Blood 11/08/2004 Zoster Immunization (1 of 2) 11/08/2009 Pneumococcal Immunization (50+ years) (3 of 3 - PCV20 or PCV21) 02/20/2024 02/19/2019, 02/15/2016 Influenza Immunization (#1) 11/25/202401/26, 02/04/2020, 02/19/2019, Additional history exists SARS-COV-2 Immunization (2024- season) 2024 02/11/2021, 06/30/2020, 06/09/2020 Respiratory Syncytial Virus (RSV) Immunization (Adult) (1 [...]
--- OUTSIDE RECORDS SUMMARY | 2025-01-23 11:12 | XMS_ITS | Clinical Summary ---
Author Organization [facility] Address [address] [place] [phone] Phone Care Team Providers Care Porter Head Name Role Phone Conversion, History Primary Care Provider Ciara dillon Social History Tobacco Use Types Packs/Day Years Used Date Smoking Tobacco: Never Assessed Sex and Gender Information Value Date Recorded Sex Assigned at Not on file Legal Sex Male 4:17 AM ABSTRACT CHECKER Gender Identity Not on file Sexual Orientation [...] Flex Sig/CT Colonography Q 5 years 11/08/2004 RSV VACCINE (60+ or ) (1 - Risk 50-74 years 1-dose series) 11/08/2009 ZOSTER VACCINE (1 of 2) 11/08/2009 PNEUMOCOCCAL VACCINE 50+ YEA RS (3 of 3 - PCV20 or PCV21) 02/20/2024 02/19/2019, 02/15/2016 INFLUENZA VACCINE (#1) 2024 , 02/17/2021, 02/04/2020, Additional history exists DTAP/TDAP/TD VACCINES (2 - T d or Tdap) 03/31/2033 03/31/2023, 05/17/2017 Care Teams Porter Head Relationship Specialty Start Date End Date Conversion, History PCP - General 09/14/06
--- OUTSIDE RECORDS SUMMARY | 2025-01-23 11:12 | XMS_ITS | Encounter Summary ---
Author Organization [facility] Address [address] [place] [address] Care Team Providers Care Nutritional Yeast Supervisor Name Role Phone Conversion, History Primary Care Provider Ciara dillon Encounter Details Date Type Department Care Team (Late st Contact Info) Description 10/06/2006 Outpatient Historical [facility] [place] (Adt Cardiology-[facility]) [address] 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
--- OUTSIDE RECORDS SUMMARY | 2025-01-23 11:12 | XMS_ITS | Encounter Summary ---
Author Organization [facility] Address [address] [place] [address] Care Team Providers Care Speech Language Specialist Name Role Phone Conversion, History Primary Care Provider Ciara dillon Encounter Details Date Type Department Care Team (Late st Contact Info) Description 09/20/2021 Lab Requisition [facility] Laboratory Services [place] [address] [place] [address] Tea Dodd FNP [address] [facility] [address] [place] [address] Social History Tobacco Use Types Packs/Day Years Used Date Smoking Tobacco: Never Assessed Sex and Gender Information Value Date Recorded Sex Assigned at Not on file Legal Sex Male 4:17 AM 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 Gender Identity Not on file Sexual Orientation [...] DETECTED Not Detected 09/22/19 1:18 AM CDT [facility] [employer] [facility] PERFORMING LAB [facility] 09/21/2021 1:18 AM CDT [facility] Upper Respiratory Collection / Unknown 09/20/2021 9:27 AM CDT 09/20/2021 9:27 AM CDT Narrative [facility] - 09/21/2021 1:18 AM CDT This test [...] MICROBIOLOGY - GENERAL ORDERAB LES Final Result [facility] CLIA# [id number] [address] [place] [address] documented in this encounter Visit Diagnoses Not on filedocumented in this encounter Care Teams Speech Language Specialist Relationship Specialty Start Date End Date Conversion, History PCP - General 09/14/06 documented as of this encounter
--- OUTSIDE RECORDS SUMMARY | 2025-01-23 11:12 | XMS_ITS | Encounter Summary ---
Author Organization [facility] Address [address] [place] [address] Care Team Providers Care Engine Service Repairer Name Role Phone Conversion, History Primary Care Provider Ciara dillon Encounter Details Date Type Department Care Team (Late st Contact Info) Description 09/25/2021 Lab Requisition [facility] Laboratory Services [place] [address] [place] [address] Tea Dodd FNP [address] [facility] [address] [place] [address] Social History Tobacco Use Types Packs/Day Years Used Date Smoking Tobacco: Never Assessed Sex and Gender Information Value Date Recorded Sex Assigned at Not on file Legal Sex Male 4:17 AM NETWORK OPERATIONS ANALYST Gender Identity Not on file Sexual Orientation [...] Negative Presumptive Negative 09/25/2021 9:31 AM CDT [facility] Upper Respiratory ANTERIOR NARES SWAB / Unknown Collection / Unknown 09/25/2021 9:05 AM CDT 09/25/2021 9:10 AM CDT Narrative [facility] [employer] [facility] - 09/25/2021 9:31 AM CDT [...] - GENERAL ORDERAB LES Final Result [facility] [employer] [facility] CLIA# [id number] [address] [place] [address] documented in this encounter Visit Diagnoses Not on filedocumented in this encounter Care Teams Engine Service Repairer Relationship Specialty Start Date End Date Conversion, History PCP - General 09/14/06 documented as of this encounter
--- OUTSIDE RECORDS SUMMARY | 2025-01-23 11:12 | XMS_ITS | Encounter Summary ---
Author Organization [facility] Address [address] [place] [address] Phone Care Team Providers Care Import/Export Administrator Name Role Phone Alphonso Echols MD Primary Care Provider [phone] Encounter Details Date Type Department Care Team (Late st Contact Info) Description 05/29/2017 Orders Only [facility] ProviderSandrita MD [address] [place] [address] Social History Tobacco Use Types Packs/Day Years Used Date Smoking Tobacco: Former Smokeless Tobacco: Never Comments:Smoking History Pac ks/day: 1 Packs Alcohol Use Standard Drinks/Week Comments Yes 0 (1 standard drink = 0.6 oz pur e alcohol) Sex and Gender Information Value Date Recorded Sex Assigned at Not on file Legal Sex Male 8:37 AM SNELLER HAND Gender Identity Not on file Sexual Orientation Not on file documented as of this encounter Plan of Treatment Not on file documented as of this encounter Procedures Procedure Name Priority Date/Time Associated Diagnosis Comments DISCHARGE LABORATORY CUMULATIVE REPORT 05/29/2017 12:00 AM SNELLER HAND documented in this encounter Results * DISCHARGE LABORATORY CUMULATIVE REPORT (05/29/2017 12:00 AM SNELLER HAND) Narrative 05/29/2017 12:00 AM SNELLER HAND Ordered by an unspecified provider. Historical Provider LAB BLOOD ORDERABLES Sakina l Result documented in this encounter Visit Diagnoses Not on filedocumented in this encounter Care Teams Import/Export Administrator Relationship Specialty Start Date End Date Alphonso Echols MD PCP - General Internal Medicine 05/29/17 documented as of this encounter
--- OUTSIDE RECORDS SUMMARY | 2025-01-23 11:12 | XMS_ITS | Encounter Summary ---
Author Organization [facility] Address [address] [place] [address] Care Team Providers Care Oyster Harvester Name Role Phone Conversion, History Primary Care [...] on file Legal Sex Male 4:17 AM DIVISION ORDER ANALYST Gender Identity Not on file Sexual Orientation Not on file documented as of this encounter Plan of Treatment Not on file documented as of this encounter Visit Diagnoses Diagnosis Open wound of lip, without mention of complication- Primary documented in this encounter Care Teams Oyster Harvester Relationship Specialty Start Date End Date Conversion, History PCP - General 09/14/06 documented as of this encounter
--- OUTSIDE RECORDS SUMMARY | 2025-01-23 11:12 | XMS_ITS | Clinical Summary ---
Author Organization [facility] Address [address] [place] [address] Care Team Providers Care Medical Records Assistant Name Role Phone Unavailable Primary Care Provider [...] 36.1 C (97 F) 03/17/2021 1:57 PM RANGE MANAGEMENT SPECIALIST Respiratory Rate - - Oxygen Saturation [...] Recently Relevant to Health Maintenance [facility]
--- OUTSIDE RECORDS SUMMARY | 2025-01-23 11:12 | XMS_ITS | Clinical Summary ---
Author Organization [facility] Address [address] [place] [address] Care Team Providers Care Golf Ball Winder Name Role Phone Alphonso Echols MD Primary Care Provider [phone] Source Comments [facility] Affiliates and Associated Physician Practices is amultiple site organization consisting of ambulatory clinics and hospital sitesin [place], [place], [place] and [place]. This disclosure is being madepursuant to the Care Everywhere program and may not contain all information available regarding this patient. Last updated 17.[facility] [employer] Allergies No known active allergies Medications * [...] on file Legal Sex Male 12:58 PM [employer] Gender Identity Not on file Sexual Orientation Not on file Last Filed Vital Signs Vital Sign Reading Time Taken Comments Blood Pressure 156/77 05/16/2023 12:58 PM [employer] Pulse 61 05/16/2023 12:58 PM [employer] Temperature 36.4 C (97.6 F) 03/30/2023 9:17 PM [employer] Respiratory Rate 24 03/30/2023 9:17 PM [employer] Oxygen Saturation 98% 05/16/2023 12:58 PM [employer] Inhaled Oxygen Concentration - - Weight 108.9 kg (240 lb) 05/16/2023 12:58 PM [employer] Height 165.1 cm (5' 5) 05/16/2023 12:58 PM [employer] Body Mass Index 39.94 05/16/2023 12:58 PM [employer] Plan of Treatment Health Maintenance Due [...] - 106 mg/dL 12/01/2017 9:08 PM CDT [facility] Sodium 136 136 - 145 mmol/L 12/01/2017 9:08 PM CDT [facility] Potassium 3.5 3.5 - 5.1 mmol/L 12/01/2017 9:08 PM CDT [facility] Chloride 101 98 - 107 mmol/L 12/01/2017 9:08 PM CDT [facility] CO2 31 22 - 31 mmol/L 12/01/2017 9:08 PM CDT [facility] Calcium 9.7 8.5 - 10.1 mg/dL 12/01/2017 9:08 PM CDT [facility] Anion Gap 4(L) 8 - 16 mmol/L 12/01/2017 9:08 PM CDT [facility] BUN 16 7 - 21 mg/dL 12/01/2017 9:08 PM CDT [facility] Creatinine 1.00 0.50 - 1.30 mg/dL 12/01/2017 9:08 PM CDT [facility] Alkaline Phosphatase 103 38 - 126 U/L 12/01/2017 9:08 PM CDT [facility] ALT 43 13 - 61 U/L 12/01/2017 9:08 PM CDT [facility] AST 14 5 - 40 U/L [...] CDT 12/01/2017 8:47 PM CDT Chantel Rosado DISPLAY ASSOCIATE-ACCOUNTING COORDINATOR LAB - CHEMISTRY ORD ERABLES Final Result [facility] [id number] [id number] from Last 3 Months or Most Recently Relevant to Health Maintenance Insurance [employer] PA[employer] GENERIC Care Teams Golf Ball Winder Relationship Specialty Start Date End Date Alphonso Echols MD [address] [id number] PCP - General Internal Medicine 12/01/17
== END 2025-01-23 10:11 | disposition home or self-care (01) ==
LOC: ANHSURGERY 10:15
PROVIDERS: Anesthesiology; PCP Internal Medicine; Visit Provider Plastic Surgery
DX: E11.65 Type 2 diabetes mellitus with hyperglycemia (principal)
CPT/HCPCS: 36415; 80048

== ENCOUNTER 2025-01-29 00:10 | Day surgery (SDC) | payer BC, SELFPAY ==
--- OUTSIDE RECORDS SUMMARY | 2010-02-12 02:30 | XMS_ITS | Continuity of Care Document ---
Author Organization [facility] [place] [address] [place] [address] [place] [address] Phone Care Team Providers Care Technical Systems Architect Name Role Phone Claudio Elliott Unavailable Unavailable Procedures Procedure Date Eye Exam & Treatment Refraction Office/outpatient Visit, Est Eye Exam & Treatment Advance Directives Directive Yes / No Effective Date File Name No Information Encounters Encounter Description Practice Location Reason(s) For Visit Diagnoses Date Provider Providers Copied on Encounter [facility], [address] [place] [address] [address], [place], [place], [id number], tel:[phone] [facility] [place] No Information [address] [facility] [address], [address], [place], [place], [facility], [place]. tel:[phone] Office/outpat ient Visit, Est [facility], [address] [place] [address] [address], [place], [place], [id number], [place] tel:[phone] [facility] No Information [address] [facility] [address], [place], [address], [place]. tel:[phone] [facility], [address] [place] [address] [address], [place], [place], [id number], tel:[phone] SEC [facility] [place] No Information [address] [facility] [address], [place], [address], [place]. tel:[phone] Family History Family Member Type Diagnosis Age At Onset No Information Payers Payer name Insurance type Covered green party ID Elizabeth cha(s) [employer] Plan CI [id number] Social History Type Description Quantity Date Captured Comments Sex Male Smoking Status No Information Chief Complaint And Reason For Visit No Information Reason For Referral Reason For Referral No Information History Of Present Illness Encounter Date Complaint History Of Prese nt Illness No Information Functional Status Date Functional Assessmen t No Information Instructions Date Instruction Additional Infor mation No Information Assessments Type Assessment Date No Information Patient Care Teams Name Effective Dates (start - stop) Status Members No Information
--- OUTSIDE RECORDS SUMMARY | 2016-11-09 18:00 | XMS_ITS | Continuity of Care Document ---
Author Organization [facility] Address [address] [place] [address] Phone Care Team Providers Care Operational Communication Chief Name Role Phone Administrative, Provider Unavailable Unavail able Allergies, Adverse Reactions, Alerts Substance Reaction Status Criticality No Known Drug Allergies Active No I nformation Procedures Procedure Date Xray Copy Medical Record Copy Medical Record Copy Per Page Affidavit Audiometric Test Supplemental Report Office/outpatient visit,est, mod 2015 Supplemental Report Office/outpatient visit,est, mod 2015 X-ray exam Lumbar 2-3 views Office/outpatient visit,new, mod 2015 Supplemental Report Office/outpatient visit,est, mod 2014 X-ray exam Cervical 3 Views Or Less Office/outpatient visit,new, mod 2014 X-ray exam knee, 3 views Office/outpatient visit,new, mod 2014 Advance Directives Directive Yes / No Effective Date File Name No Information Encounters Encounter Description Practice Location Reason(s) For Visit Diagnoses Date Provider Providers Copied on Encounter [facility], [address], [place], [place], [id number], [place] tel:[phone] [facility] No Information Administrati ve Provider. [address] [address], [place], [place], [id number], [place]. tel:[phone] [facility], [address], [id number], [place] tel:[phone] [facility] No Information Administrati ve Provider. [address] [address], [place], [place], [id number], [place]. tel:[phone], [address], [id number], [place] tel:[phone] [facility] Encounter for other administrative examinations Mark Manrique. [address], [id number], [place]. tel:[phone] Office/outpa tient visit,est, mod [facility], [address], [id number], [place] tel:[phone] [facility] Follow Up of Lumbar (chief complaint) Contusion of lower back and pelvis, subsequent encounterPares thesia of skinObesity, unspecifiedTyp e 2 diabetes mellitus without complications Mark Manrique. [address] [facility], [address] [address], [place], [place], [id number], [place]. tel:[phone] Office/outpa tient visit,est, mod [facility], [address], [id number], [place] tel:[phone] [facility] Follow Up of Lumbar (chief complaint) Contusion of back wall of thorax, subsequent encounterContu natalya of lower back and pelvis, subsequent encounter 6 Mark Manrique. [address] [facility], [address], [id number], [place]. tel:[phone] Office/outpa tient visit,new, [facility], [address] [address], [place], [place], [id number], [place] tel:[phone] [facility] Lumbar (chief complaint) Low back painContusion of buttock, initial encounterContu natalya of back wall of thorax, initial encounter 6 Mark Manrique. [address] [facility], [facility] [address], [place], [place], [address], [place]. tel:[phone] Office/outpa tient visit,est, [employer] [facility], [address], [id number], [place] tel:[phone] [facility] Type 2 diabetes mellitus without complicationsE ssential (primary) hypertensionOb esity, unspecifiedPar esthesia of skinCarpal tunnel syndrome of left armCarpal tunnel syndrome of right arm 5 Mark Manrique. [address] [facility], [address] [address], [place], [place], [id number], [place]. tel:[phone] Office/outpa tient visit,new, [employer] [facility], [address] [address], [place], [place], [id number], [place] tel:[phone] [facility] CervicalgiaPar esthesia of skinObesityHyp ertensionType II diabetes mellitus w/o complication 5 Mark Manrique. [address] [facility], [address] [address], [place], [place], [id number], [place]. tel:[phone] Office/outpa tient visit,new, [employer] [facility], [address], [id number], [place] tel:[phone] [facility] Knee painContusion of kneeRheumatoid arthritis 5 Mark Manrique. [address] [facility], [facility] [address], [place], [address], [place]. tel:[phone] Family History Family Member Type Diagnosis Age At Onset Problem (finding) Family history of Arthr itis Problem (finding) Family history of hyper tension Problem (finding) Family history of Cance r, unknown Payers Payer name Insurance type Covered green party ID Authoriza tion(s) No Information Social History Type Description Quantity Date Captured Comments Sex Male Smoking Status No Information Chief Complaint And Reason For Visit No Information Reason For Referral Reason For Referral No Information Plan Of Treatment Date Type Action Status Referral Ordered: CT scan Lumbar Spine WO Contrast Appointment date/timeframe: 10/19/2015 ordered Referral Ordered: X-ray exam Lumbar 2-3 views ordered Referral Ordered: X-ray exam Cervical 3 Views Or Less ordered Referral Ordered: EMG NCS Bilateral ordered Referral Ordered: X-ray exam knee, 3 views RT ordered History Of Present Illness Encounter Date Complaint History Of Prese nt Illness Follow Up of Lumbar Follow Up of Lumbar Lumbar patient complain s of lumbar pain Functional Status Date Functional Assessmen t No Information Instructions Date Instruction Additional Infor mation No Information Assessments Type Assessment Date No Information Patient Care Teams Name Effective Dates (start - stop) Status Members No Information
--- OUTSIDE RECORDS SUMMARY | 2023-10-27 09:26 | XMS_ITS | Continuity of Care Document ---
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 Phone Jesse Pierre Unavailable Unavailable Procedures Procedure Date Progress Note Therapeutic Activities Neuromuscular Re-Ed Therapeutic Exercise Manual Therapy Hot or Cold Pack Therapeutic Activities Neuromuscular Re-Ed Therapeutic Exercise Manual Therapy Hot or Cold Pack Therapeutic Activities Neuromuscular Re-Ed Therapeutic Exercise Manual Therapy Hot or Cold Pack Therapeutic Activities Neuromuscular Re-Ed Therapeutic Exercise Manual Therapy Hot or Cold Pack Therapeutic Activities Neuromuscular Re-Ed Therapeutic Exercise Hot or Cold Pack Manual Therapy Therapeutic Activities Neuromuscular Re-Ed Therapeutic Exercise Manual Therapy Hot or Cold Pack Therapeutic Activities Neuromuscular Re-Ed Manual Therapy Hot or Cold Pack Therapeutic Activities Therapeutic Exercise Manual Therapy Hot or Cold Pack Therapeutic Activities Neuromuscular Re-Ed Therapeutic Exercise Manual Therapy Hot or Cold Pack Doc neg elder mal no plan Identified as not an unhealthy alcohol u ser Not identified as unhealthy alcohol via screening OT Re-Evaluation Therapeutic Activities Neuromuscular Re-Ed Therapeutic Exercise Manual Therapy Hot or Cold Pack Therapeutic Activities Neuromuscular Re-Ed Therapeutic Exercise Manual Therapy Hot or Cold Pack Therapeutic Activities Neuromuscular Re-Ed Therapeutic Exercise Manual Therapy Hot or Cold Pack Therapeutic Activities Neuromuscular Re-Ed Manual Therapy Hot or Cold Pack Doc neg elder mal no plan Identified as not an unhealthy alcohol u ser Not identified as unhealthy alcohol via screening OT Evaluation Low Complexity Therapeutic Activities Neuromuscular Re-Ed Hot or Cold Pack Advance Directives Directive Yes / No Effective Date File Name No Information Encounters Encounter Description Practice Location Reason(s) For Visit Diagnoses Date Provider Providers [facility], [place], [place], [id number], tel:[phone] [place] No Information 0 4 Lenny Molina. . [facility], [place], [place], [id number], [place] tel:[phone] [place] No Information Apr-1 7-202 4 Lenny Jesse. . Referring Provider: [place], [address]. tel:[phone] [place] [address], [address], [place], [place], [id number], [place] tel:[phone] [place] No Information Apr-1 0-202 4 Lenny Jesse. . Referring Provider: [place], [address]. tel:[phone] [place] [address], [address], [place], [place], [id number], [place] tel:[phone] [place] No Information Apr-0 3-202 4 Lenny Jesse. . Referring Provider: [place], [address]. tel:[phone] [place] [address] [address], [place], [place], [id number], [place] tel:[phone] [place] No Information Mar-2 7- 4 Lenny Jesse. . Referring Provider: [place], [address]. tel:[phone] [facility], [address], [place], [place], [id number], [place] tel:[phone] [place] No Information Mar-2 0-202 4 Lenny Jesse. . Referring Provider: [place], [address]. tel:[phone] [facility], [place], [place], [id number], [place] tel:[phone] [place] No Information Mar-1 3-202 4 Lenny Jesse. . Referring Provider: [place], [address]. tel:[phone] [facility], [place], [place], [id number], [place] tel:[phone] [place] No Information May-0 4 Adela Rodriguez. . Referring Provider: [place], [address]. tel:[phone] [place] [address], [address], [place], [place], [id number], [place] tel:[phone] [place] No Information Apr-2 4 Lenny Molina. . Referring Provider: [place], [address]. tel:[phone] [place] [address], [address], [place], [place], [id number], [place] tel:[phone] [place] No Information Apr- 4 Lenny Molina. . Referring Provider: [place], [address]. tel:[phone] [place] [address], [address], [place], [place], [id number], [place] tel:[phone] [place] No Information 4 Lenny Molina. . Referring Provider: [place], [address]. tel:[phone] [facility] [address] [facility], [place], [place], [id number], [place] tel:[phone] [place] No Information Apr-1 4 Lenny Molina. . Referring Provider: [place], [address]. tel:[phone] [facility], [place], [place], [id number], [place] tel:[phone] [place] No Information Apr-0 4 Lenny Molina. . Referring Provider: [place], [address]. tel:[phone] [facility] [facility] [address], [place], [place], [id number], tel:[phone] [place] No Information b0 4 Lenny Molina. . Referring Provider: Breonna Lowe, [place], [address]. tel:[phone] [facility] [facility] [address], [place], [place], [id number], tel:[phone] [place] No Information b-0 4 Lenny Molina. . Referring Provider: Breonna Lowe, [place], [address]. tel:[phone] Family History Family Member Type Diagnosis Age At Onset No Information Payers Payer name Insurance type Covered democrat ID Elizabeth cha(s) [facility] [id number] Social History Type Description Quantity Date Captured [...]
--- NOTE | 2025-01-22 14:35 | PC.NURSE ---
[facility] has started construction of its new state of the art ER which will open Spring 2026. With this, we anticipate parking may be a challenge for some our surgical patients and families. Parking spaces are limited but are available for all Surgical, obstetrics, and ER patients sharing this lot. If you arrive and find you are having a hard time finding a parking space, please note that we understand the challenges, please drive around the hospital and park near Hospital Entrance 1. When you enter this entrance, you can ask a volunteer to direct or take you back to the surgical waiting area to check in. We appreciate everyone?s understanding of these expected challenges while we build for your future. Report to the Outpatient Waiting Room, entrance under the green pavilion located off [address], at time _1200 NOON on date _01/29/25 . Planned Procedure Time: __2 PM .? Time changes happen often and if your time is changed the preop area will call you the afternoon before. - You and your visitor will be asked to self-screen and do not enter if you have any COVID symptoms. Please call surgeon if you need to reschedule. - A mask is optional within the hospital at this time. NOTHING TO EAT OR DRINK 8 HOURS PRIOR TO SURGERY- 6AM Take only the following medications with a SIP of water on the morning of surgery: _AMLODIPINE,RANOLAZINE DO NOT STOP ANY OF YOUR OTHER PRESCRIPTION MEDICATIONS PRIOR TO SURGERY EXCEPT THE FOLLOWING Hold all vitamins and supplements for 3 days per anesthesiologist. Medications to discontinue per physician ASPIRIN AND DICLOFENAC PER DR JACKSON Please no make-up, nail estonian, hairspray, perfume, deodorant, or body powder the day of surgery.? No jewelry (including any body piercings) or valuables the day of surgery, leave them at home.? Please take a shower or bath the night before, or the morning of, surgery with an antibacterial soap.? Wear comfortable, loose fitting clothing.? Children are encouraged to wear pajamas. - Jewelry must be removed prior to entering the operating room.? Rings and piercings that are not removed may be cut off. - The hospital will not accept responsibility for valuables.? - Please leave all valuables, including medications, at home the day of surgery. If you are going home after surgery, a licensed medical driver must drive you home.? - NO public transportation without another adult if you receive anesthesia. - We recommend that an adult stay with you for 24 hours following discharge. - We also recommend that you do not drive, make important decision, drink alcoholic beverages, or take any drugs that were not prescribed by your health care provider for at least 24 hours after your discharge time. Follow any additional instructions given to you from your surgeon. Telephone instructions given to __PATIENT and asked if any additional questions and then verbalized understanding. Patient advised to call surgeon office or pre surgery nurse liaison [phone] if any additional questions.
[2025-01-22 15:07] VITALS: BMI 39.9
--- OUTSIDE RECORDS SUMMARY | 2025-01-29 00:13 | XMS_ITS | Encounter Summary ---
Author Organization [facility] Address [address] [place] [address] Care Team Providers Care Embedded Case Manager Name Role Phone Unavailable Primary Care Provider Unavailabl e Prior Encounters Date Type Department Care Team Description 09/29/2021 Travel 09/29/2021 9:00 AM CDT Office Visit [facility] [address] [place] [address] Juan Jose Ramirez DDS 09/29/2021 9:00 AM CDT Office Visit [facility] [address] [place] [address] Alena Mishra, [facility] 04/07/2021 Travel 04/07/2021 8:00 AM SEWING MACHINE REPAIRER HELPER Office Visit [facility] [address] [place] [address] Betsy De Luna DMD 03/17/2021 Travel 03/17/2021 2:00 PM SEWING MACHINE REPAIRER HELPER Office Visit [facility] [address] [place] [address] Alena Mishra, [facility] 03/17/2021 2:00 PM SEWING MACHINE REPAIRER HELPER Office Visit [facility] [address] [place] [address] Betsy De Luna DMD 09/23/2020 Travel 09/23/2020 3:30 PM CDT Office Visit [facility] [address] [place] [address] Betsy De Luna, LALITHA Last Filed Vital Signs Vital Sign Reading Time Taken Comments Blood Pressure 132/69 09/29/2021 8:39 AM CDT Pulse 60 09/29/2021 8:39 AM CDT Temperature 36.1 C (97 F) 03/17/2021 1:57 PM SEWING MACHINE REPAIRER HELPER Respiratory Rate - - Oxygen Saturation - [...] PROF CRTSY Routine 04/07/2021 8 :00 AM SEWING MACHINE REPAIRER HELPER NC X-RAY Routine 04/07/2021 8:00 AM SEWING MACHINE REPAIRER HELPER 19 CEMENT CROWN Routine 04/07/2021 8:00 AM SEWING MACHINE REPAIRER HELPER TOPICAL APPLICATION OF FLUORIDE VARNISH Routine 03/17/2021 2:00 PM SEWING MACHINE REPAIRER HELPER ORAL HYGIENE INSTRUCTIONS Routine 2020 2:00 PM SEWING MACHINE REPAIRER HELPER PERIO MAINTENANCE Routine 03/17/2021 2:0 0 PM SEWING MACHINE REPAIRER HELPER PERIODIC ORAL EVALUATION - ESTABLISHED PATIENT Routine 03/17/2021 2:00 PM SEWING MACHINE REPAIRER HELPER TOPICAL APPLICATION OF FLUORIDE VARNISH Routine 09/23/2020 [...] CDT Visit Diagnoses Not on file Insurance [facility] [place]
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
--- OUTSIDE RECORDS SUMMARY | 2025-01-29 00:13 | XMS_ITS | Data Portability ---
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 At his request under sterile conditions I injected the patient's right knee joint in the office today with Orthovisc injection number 3. This is from the specialty pharmacy. The patient tolerated the procedure well. I will see him back as needed we can do this again in 6 months if needed versus cortisone in between. We have talked about total knee arthroplasty in detail previously he is considering that later this year he will let us know if he becomes ready to do that. He voiced understanding agrees above plan call for any further problems difficulties or questions. Not available 10/25/2024 10:43:46 10/29/2024 10/29/2024 Ventral hernia. Hx periumbilical hernia repair with mesh placement [address] showed multiple small ventral hernias with omental contents. Surgical clearance per Dr. Fuentes, cardiology. Discussed options. Patient wishes to schedule ventral hernia repair with mesh placement. Explained risks including pain, bleeding, infection, bowel injury, paresthesias. Patient voiced understanding adn wishes to proceed. Will plan for R. A. laparoscopic hernia repair, possible open. Not available 10/29/2024 12:14:48 01/28/2025 01/28/2025 Some induration at hernia site, no significant fluid collection visualized on US. Will f/u in 2 weeks, sooner if concerns arise. Not available 01/28/2025 15:21:58 Plan of Treatment Reminders Order Date Submit Date Provider Last Modified By Organization Details Last Modified Time Details Appointments Establish ed Patient 15 2024 10:00A M Lucas barksdale MD Not available Not available Not available Any 15 2025 08:45A M Silvestre Echols MD Not available Not available Not available Lab None recorded. Referral physical therapist referral - Please call patient to schedule. 2024 025 [email or web address] [facility], [address], [place], [address], 01/21/2025 12:32:26 hand surgeon referral - Titus Son please call to schedule referral. Please call patient to schedule an appointme nt. Thank you. 2024 025 [email or web address] Joyce Burnette MD, [address], [place], [address], 01/21/2025 08:54:11 Procedures injection /aspirati on joint/bur sa (PROC) 2024 025 [email or web address] In-Office Order, Internal Use Only DO Not Attach Compendium DO Not Attach Compendium, Do Not Delete/merge, [id number] 10/25/2024 10:16:56 Surgeries None recorded. Imaging None recorded. Medication Orders tramadol 50 mg tablet [address] [facility], [place], [address], 12/19/2024 10:09:10 Patient TargetsNo targets recorded. Patient Instructions Encounter Date Encounter Id Patient Instructions Last Modified By Organization Details Last Modified Time 10/23/2024 [id number] Wait for referrals department to call to get appointment scheduled. Continue to wear both braces and rest and ice. [email or web address] Not available 10/23/2024 12:28:48 Reason for Referral Hand Surgeon Referral for Bi lateral carpal tunnel syndrome [phone] Titus Son please call to schedule referral. Please call patient to schedule an appointment. Thank you. Referring Physician: Carrol Sanon, Internal Medicine, Encounter Date: 10/23/2024 Physical Therapist Referral for Low back pain Please call patient to schedule. Referring Physician: Silvestre Echols, Internal Medicine, Encounter Date: 12/19/2024 Results Created Date Observation Date Name Description Value Unit Range Abnormal Flag Note LastModifiedBy Organization Detail LastModifiedTime 10/24/1910/23/2024 CREAT ININE , I-STA T creatinine 0.9 mg/dL 0.6-1. 3 Not Available [facility] (Lab) [address] [place], [address], 10/24/2024 11:33:02 01/14/20 25 01/13/2025 GLUCO SE (POIN T OF CARE) glucose (point of care) 98 mg/dL 74-99 Not Available [facility] (Lab) [address] [place], [address], 01/13/2025 07:52:57 01/14/20 25 01/13/2025 GLUCO SE (POIN T OF CARE) glucose (point of care) 152 mg/dL 74-99 high Not Available [facility] (Lab) [address] [place], [address], 01/13/2025 11:39:05 10/24/19 25 10/23/2024 CT, abdom en + pelvi s, w/ contr ast [facility] [address] [phone] RADIOL OGY REPORT _ Patien t Name: ARTHUR DAVEY Date Of : [birth year] Date Of Study: 025 Ref. Physic ady: MIHIR MORENO N JEMMA O MD _ Examin ation: CT ABDOME N PELVIS W CLINIC AL INDICA TION: Abdomi nal pain w/know n hernia . COMPAR LILIAN: None. INTRAV ENOUS CONTRA ST USED: 100 mL of Isovue 370. TECHNI QUE: A post-c ontras t CT study of the abdome n and pelvis is perfor med after admini strati on of intrav enous contra st medium . The examin ation was perfor med with [address] scan done accord ing to ALARA (As Low as Reason ably Achiev able). Multip lanar recons tructi ons were obtain ed. FINDIN GS: CT ABDOME N: Lung Bases: The evalua tion of lung bases demons trates no focal infilt rates or pleura l effusi on. Liver: The liver is normal in size. The portal venous radicl es are normal . There is no intrah epatic biliar y radicl e dilata tion. Spleen : The spleen is normal in size and does not show any focal abnorm ality. Gallbl adder: Cholel ithias is withou t cholec ystiti s. The common bile duct is not dilate d. Pancre as: The pancre as is normal in size and shape. No focal lesion is seen within . The peripa ncreat ic fat-pl anes are normal . Retrop eriton eum: Both adrena l glands are normal in size and morpho logy. There is no signif icant retrop eriton eal lympha denopa thy. The kidney s are normal in size with no hydron ephros is or renal calcul i. Stomac h and Bowel: The bowel loops are unrema rkable . There is no ascite s. Skelet al System : Visual ized spine shows degene rative change s with reduce d disc spaces and osteop enia. Vessel s: The aorta and its branch es show athero sclero tic calcif icatio ns. IVC and the mesent ar vessel s appear unrema rkable . CT PELVIS : Append ix: The append ix is unrema rkable in appear ance. Colon: Coloni c divert iculos is withou t eviden ce of divert iculit is. Bladde r: The urinar y bladde r is unrema rkable . Pelvic Organs : Unrema rkable . No pelvic lympha denopa thy is identi fied. No abnorm al fluid collec tion is seen. Multip le small defect s contai padmini omenta l fat are seen in the anteri or abdomi nal wall in the supra- umbili judson and umbili judson region s. IMPRES REBEKAH: 1. No abdomi nal mass or adenop athy. 2. No ascite s. 3. No free air or inflam matory change s. 4. Cholel ithias is withou t cholec ystiti s. 5. Multip le small defect s contai padmini omenta l fat are seen in the anteri or abdomi nal wall in the supra- umbili judson and umbili judson region s. 6. Coloni c divert iculos is withou t eviden ce of divert iculit is. Electr onical ly Signed 025 13:22 [address] (Imaging) [address] [place], [address], 10/23/2024 14:36:36 10/24/19 25 10/23/2024 CT, abdom en + pelvi s, w/ contr ast No observ ation record ed. [address] Radiology [address] [place], [address], 10/23/2024 14:32:57 10/25/19 25 10/23/2024 CT, abdom en + pelvi s, w/ contr ast No observ ation record ed. BARCODE Not Available 2024 12:35:06 Result Notes Documentation Provider Name and Address Organization Details Recorded Time Ct, Abdomen + Pelvis, W/ Contrast : [address] [phone] RADIOLOGY REPORT _ Patient Name: NOEMY DAVEY Date Of : 1960 Date Of Study: 10/23/2024 Ref. Physician: SUSIE FERNÁNDEZ MD _ Examination: CT ABDOMEN PELVIS W CLINICAL INDICATION: Abdominal pain w/known hernia. COMPARISON: None. INTRAVENOUS CONTRAST USED: 100 mL of Isovue 370. TECHNIQUE: A post-contrast CT study of the abdomen and pelvis is performed after administration of intravenous contrast medium. The examination was performed with [address] scan done according to ALARA (As Low as Reasonably Achievable). Multiplanar reconstructions were obtained. FINDINGS: CT ABDOMEN: Lung Bases: The evaluation of lung bases demonstrates no focal infiltrates or pleural effusion. Liver: The liver is normal in size. The portal venous radicles are normal. There is no intrahepatic biliary radicle dilatation. Spleen: The spleen is normal in size and does not show any focal abnormality. Gallbladder: Cholelithiasis without cholecystitis. The common bile duct is not dilated. Pancreas: The pancreas is normal in size and shape. No focal lesion is seen within. The peripancreatic fat-planes are normal. Retroperitoneum: Both adrenal glands are normal in size and morphology. There is no significant retroperitoneal lymphadenopathy. The kidneys are normal in size with no hydronephrosis or renal calculi. Stomach and Bowel: The bowel loops are unremarkable. There is no ascites. Skeletal System: Visualized spine shows degenerative changes with reduced disc spaces and osteopenia. Vessels: The aorta and its branches show atherosclerotic calcifications. IVC and the mesenteric vessels appear unremarkable. CT PELVIS: Appendix: The appendix is unremarkable in appearance. Colon: Colonic diverticulosis without evidence of diverticulitis. Bladder: The urinary bladder is unremarkable. Pelvic Organs: Unremarkable. No pelvic lymphadenopathy is identified. No abnormal fluid collection is seen. Multiple small defects containing omental fat are seen in the anterior abdominal wall in the supra-umbilical and umbilical regions. IMPRESSION: 1. No abdominal mass or adenopathy. 2. No ascites. 3. No free air or inflammatory changes. 4. Cholelithiasis without cholecystitis. 5. Multiple small defects containing omental fat are seen in the anterior abdominal wall in the supra-umbilical and umbilical regions. 6. Colonic diverticulosis without evidence of diverticulitis. 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 Not Available [facility] 4 06:50:12 Vitamin D deficien cy 17656344 Active WAGNER Álvarez [facility] [employer] [facility] 5 09:40:01 Sick sinus syndrome 56763638 Active WAGNER Álvarez [facility] [employer] [facility] 5 09:40:00 Neuropat hy 222613536 Active Not Available [facility] 4 06:50:12 Osteoart hritis 542405283 Active Not Available [facility] 4 06:50:12 Vertigo 592435567 Completed Not Available [facility] 3 02:52:38 Hernia of anterior abdomina l wall 403295003 Active Silvestre Echols MD [address] [address], [place], [address] , [facility] 5 10:04:00 Obesity 784183941 Active Selene elaine, RMA null, [place] [facility] 5 09:40:00 Hand pain 85395411 Completed Not Available [facility] 3 02:52:38 Hyperlip idemia 18766500 Active Selene Jamabea n, RMA null, [place] [facility] 5 09:40:00 Carpal tunnel syndrome 17057281 Active Not Available [facility] 4 06:50:12 Rheumato id arthriti s 16722895 Active Selene Schaefera n, RMA null, [place] [facility] 5 09:40:00 Diabetes mellitus 75896937 Active Silvestre Echols MD [address], [place], [address] , [facility] 5 10:03:59 Sleep apnea 03282969 Active Selene Brand n, RMA null, [place] [facility] 5 09:40:00 Ex-smoke r 0492819 Active Not Available [facility] 4 06:50:12 Knee pain Completed 201605/17/2017 Not Available [facility] 3 02:52:37 Anemia 125828129 Active 2020 Selene Jamabea n, RMA null, [place] [facility] 5 09:40:00 Knee pain Completed 202002/24/2022 Not Available [facility] 3 02:52:37 Erectile dysfunct ion 427116767 Active 2020 Selene Hernándezlebea n, RMA null, [place] [facility] 5 09:40:00 Hypertri glycerid emia 812711811 Active 2020 Not Available [facility] 4 06:50:12 Cellulit is 508353860 Active 2021 Not Available [facility] 4 06:50:12 Thoracic back pain 236957521 Active 2022 Selene elaine RMA null, [facility] 5 09:40:01 Fracture of thoracic spine 093191537 Active 2022 Not Available [facility] 4 06:50:12 Acute bronchit is 65888620 Active 2022 Not Available [facility] 4 06:50:12 Nausea 653734696 Active 2023 Jenni Warner MA null, [facility] 4 15:44:22 Acute sinusiti s 13558863 Active 2023 Silvestre Echols MD [address], [place], [address] , [facility] 4 10:28:46 Pain of right knee joint 07858765797 4100 Active 2023 Silvestre Echols MD [address], [place], [address] , [facility] 4 10:46:05 Osteoart hritis of right knee joint 32682168841 9100 Active 2023 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null, [facility] 5 14:36:55 Sebaceou s cyst of skin 707365167 Active 2024 Svetlana Cuello null, [facility] 5 09:57:38 Ventral incision al hernia 178567834 Active 2024 Lucas perez MD [address], [place], [address] , [facility] 5 14:58:28 Bilatera l carpal tunnel syndrome 32761568307 216615 Active 2024 YAMILETH Mooney [address] [address], [place], [address] , [employer] 12:10:56 Low back pain 684292968 Active 2024 Silvestre Echols MD [address], [address] , [employer] 10:05:00 Notes:Some problems listed i n Documents: #[id number], #[id number] could not be added to this patient's chart. Please review these documents and add these problems to the patient's chart manually as needed. Problem Notes None recorded. Procedures Surgical History Date Name Laterality Status Provider Name and Address Organization Details Recorded Time Hernia Surgery completed Kate Carney MA [employer] 01/20/2025 16:03:02 Orthovisc Injection completed Gracy Roman NP [address] [address], [place], [address], [employer] 10/12/2024 12:37:26 Pacemaker completed 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[employer] 12/26/2023 09:47:06 Hernia Repair completed Kate Carney MA [employer] 10/22/2024 11:15:46 Imaging Results None recorded. Procedure [...] mg by injectio n route. 04/10 completed [facility]: [id number] 4-20 Not Available Not Available Not Available meclizine [...] Available Not Available No t Available [employer] [place] Lite kit USE UTD 02/17 completed Not [...] Not Available Not Available [employer] Yaz 3 [place] USE DIRECTED active Not Available Not Available No t Available [employer] Yaz 3 Plus Sensor device USE DIRECTED active Not Available Not Available No t Available Vitals Date Recorded Body height Body mass index (BMI) Body weight Body temperature Heart rate Oxygen saturation Oxygen saturation in Arterial blood by Pulse oximetry Systolic And Diastolic Provider Name and Address Organization Details Last Updated DateTime 5 165.1 cm 37.9 kg/m2 268801. 06 g 98.7 [degF] 78 /min 97 % 97 % 138/88 mm[Hg] Svetlana griffin [facility] [employer] [facility] 5 11:48:21 Date Recorded Body height Body mass index (BMI) Body weight Pain severity - 0-10 verbal numeric rating [Score] - Reported Provider Name and Address Organization Details Last Updated DateTime 10/25/2024 165.1 cm 37.4 kg/m2 984021.[address] [facility] [employer] [facility] 10/25/2024 10:16:04 Date Recorded Body height Body mass index (BMI) Body weight Body temperature Heart rate Respiratory rate Systolic And Diastolic Provider Name and Address Organization Details Last Updated DateTime 5 165.1 cm 37.4 kg/m2 383272. 28 g 98.6 [degF] 76 /min 14 /min 130/86 mm[Hg] Kate Carney MA [facility] [employer] [facility] 5 10:47:37 Date Recorded Body height Body mass index (BMI) Body weight Body temperature Heart rate Oxygen saturation Oxygen saturation in Arterial blood by Pulse oximetry Systolic And Diastolic Provider Name and Address Organization Details Last Updated DateTime 5 165.1 cm 37.3 kg/m2 998841. 69 g 97.6 [degF] 79 /min 98 % 98 % 140/72 mm[Hg] Selene spear [facility] [employer] [facility] 5 09:39:39 Date Recorded Body height Body mass index (BMI) Body weight Body temperature Respiratory rate Oxygen saturation Oxygen saturation in Arterial blood by Pulse oximetry Systolic And Diastolic Provider Name and Address Organization Details Last Updated DateTime 5 165.1 cm 37.3 kg/m2 253237. 69 g 98.6 [degF] 14 /min 98 % 98 % 140/70 mm[Hg] Kate Carney MA [facility] [employer] [facility] 5 10:59:49 Social History Question Answer Notes LastModified by Organizat ion Details LastModified Time Tobacco Smoking Status Former Smoker Not Available [facility] 05/25/2022 02:44:06 Do You Have An Advance Directive? No [id number] Information not available 05/25/2022 What Is Your [...] 10/22/2024 When Did You Quit Smoking? 15+yearssin celastciharry ette 15 Yrs Ago Information not available 12/26/2023 Are There Any Guns Present In Your Home? No Information not available 10/22/2024 What Was The Date Of Your Most Recent Tobacco Screening? 02/25/2022 [id number] Information not available 05/25/2022 What Is Your Current Pack Years? 20-packye ars [id number] Information not available 05/25/2022 What Is Your Relationship Status? 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 Family History Relationship Description Onset Age of this Age Resolved Age Notes LastModified by Organization Details LastModified Time Father No current problems or disability Not available 10/22 11:14:11 Mother No current problems or disability Not available 10/22 11:14:11 Notes:pt states none Medical History Condition Response MRSA N SLEEP APNEA N ALLERGIES/HAYFEVER N LUNG DISEASE/DISORDER N INSOMNIA N COPD N RADIATION / CHEMOTHERAPY N HIGH CHOLESTEROL / HYPERLIPIDEMIA N HYPERTHYROIDISM N BLOOD DISEASES N EAR OR HEARING PROBLEMS N HYPOTHYROIDISM N DEPRESSION (INCLUDING POST ) N HAVE YOU BEEN HOSPITALIZED OR SEEN IN [facility] IN THE PAST YEAR ? N [...] (COVID-19) vaccine, UNSPECIFIED 1 completed Not Available [facility] 04/04/2023 06:50:13 SARS-COV-2 (COVID-19) vaccine, UNSPECIFIED 1 completed Not Available [facility] 04/04/2023 06:50:13 Influenza, split virus, quadrivalent, preservative 0 completed Not Available [facility] 04/04/2023 06:50:13 influenza, unspecified formulation 9 completed Not Available [facility] 04/04/2023 06:50:13 Td (adult), 5 Lf tetanus toxoid, preservative free, adsorbed 8 completed Not Available [facility] 04/04/2023 06:50:13 Influenza, high-dose, quadrivalent, PF 1 completed Not Available [facility] 04/04/2023 06:50:13 Td (adult), 2 Lf tetanus toxoid, preservative free, adsorbed 8 completed Not Available [facility] 04/04/2023 06:50:13 Influenza, high-dose, trivalent, PF 7 completed Not Available [facility] 04/04/2023 06:50:13 Influenza, split virus, quadrivalent, preservative 6 completed Not Available [facility] 04/04/2023 06:50:13 pneumococcal polysaccharide PPV23 6 completed Not Available [facility] 04/04/2023 06:50:13 Influenza, high-dose, trivalent, PF 5 completed Not Available [facility] 04/04/2023 06:50:13 Pneumococcal conjugate PCV 13 9 completed Not Available [facility] 04/04/2023 06:50:13 Influenza, split virus, quadrivalent, preservative 9 completed Not Available [facility] 04/04/2023 06:50:13 Influenza, split virus, quadrivalent, PF 8 completed Not Available [facility] 12/19/2024 09:33:30 COVID-19, mRNA, LNP-S, PF, 30 mcg/0.3 mL dose 1 completed Not Available [facility] 12/19/2024 09:33:30 zoster recombinant 2 completed Not Available [facility] 12/19/2024 09:33:30 COVID-19, mRNA, LNP-S, PF, 30 mcg/0.3 mL dose, armani-sucrose 2 completed Not Available [facility] 12/19/2024 09:33:30 zoster recombinant 2 completed Not Available [facility] 12/19/2024 09:33:30 Influenza, split virus, quadrivalent, PF 2 completed Not Available [facility] 12/19/2024 09:33:30 COVID-19, mRNA, LNP-S, bivalent, PF, 30 mcg/0.3 mL dose 3 completed Not Available [facility] 12/19/2024 09:33:30 Influenza, split virus, quadrivalent, PF 3 completed Not Available [facility] 12/19/2024 09:33:30 Tdap 4 completed Not Available [facility] 12/19/2024 09:33:30 Influenza, split virus, trivalent, PF 4 completed Not Available [facility] 12/19/2024 09:33:30 COVID-19, mRNA, LNP-S, PF, armani-sucrose, 30 mcg/0.3 mL 4 completed Not Available [facility] 12/19/2024 09:33:30 Past Encounters Encounter ID Performer Location Encounter Start Date Encounter Closed Date Diagnosis/Indication Diagnosis SNOMED-CT Code Diagnosis ICD10 Code Diagnosis IMO Codes Diagnosis Note [id number] Silvestre Echols MD [facility] [address] [facility] [place] [address] 06/17/2020 00:00:00 06/17/2020 10:51:26 [id number] [facility] [address] [place] [address] 08/13/2020 00:00:00 08/13/2020 11:14:49 [id number] Silvestre Echols MD [facility] [address] [place] [address] 10/14/2020 00:00:00 10/14/2020 11:40:24 [id number] Silvestre Echols MD [facility] [address] [place] [address] 02/17/2021 00:00:00 02/17/2021 14:56:49 [id number] Silvestre Echols MD [facility] [address] [place] [address] 06/17/2021 00:00:00 06/17/2021 11:18:45 [id number] Silvestre Echols MD [facility] [address] [address] 07/21/2021 00:00:00 07/21/2021 14:57:52 [id number] Silvestre Echols MD [facility] [address] [place] [address] 10/22/2021 00:00:00 10/22/2021 11:05:52 [id number] Silvestre Echols MD [facility] [address] [facility] [place] [address] 02/25/2022 00:00:00 02/25/2022 11:10:23 [id number] Silvestre Echols MD [facility] [address] [place] [address] 06/29/2022 10:23:36 06/29/2022 11:02:14 Benign essential hypertension 6243376 I10 under control Diabetes mellitus 499528 09 E11.9 under control Hyperlipidemia 06765500 E78.5 labs good Obesity 895485155 E66.9 advised to lose weight Rheumatoid arthritis 698 39245 M06.9 seeing rheumatolo gist and is stable Erectile dysfunction 860 726234 F52.21 Viagra prn Anemia 808193374 D64.9 now nl Sick sinus syndrome 3608 3008 I49.5 s/p pace maker Sleep apnea 93209266 G47 .30 CPAP compliant Hernia of anterior abdominal wall 755873275 K43.9 seen surgeon, Vitamin D deficiency 347 77929 E55.9 otc Ex-smoker 0500772 Z87.89 1 [id number] Silvestre Echols MD [facility] Internal Med [address] [facility] [place] [address] 10/27/2022 10:04:26 10/27/2022 11:24:37 Benign essential hypertension 5126431 I10 under control Diabetes mellitus 257359 09 E11.9 under control Hyperlipidemia 76039197 E78.5 labs good Obesity 078407397 E66.9 advised to lose more Rheumatoid arthritis 698 25478 M06.9 seeing rheumatolo gist and is stable Erectile dysfunction 860 852100 F52.21 Viagra prn Anemia 631208339 D64.9 now nl Sick sinus syndrome 3608 3008 I49.5 s/p pace maker Sleep apnea 48958923 G47 .30 CPAP compliant Hernia of anterior abdominal wall 947602913 K43.9 seen surgeon, Vitamin D deficiency 347 45265 E55.9 otc Ex-smoker 3627201 Z87.89 1 Adult heal th examination 010109123 Z00.00 Thoracic back pain 83283 8004 M54.6 may need PT after the CT [id number] Silvestre Echols MD [facility] Internal Med [address] [facility] [place] [address] 03/01/2023 09:51:14 03/01/2023 10:30:33 Benign essential hypertension 6744320 I10 under control Diabetes mellitus 565667 09 E11.9 getting better Hyperlipidemia 15240720 E78.5 labs good Obesity 343464175 E66.9 advised to lose more Rheumatoid arthritis 698 29404 M06.9 seeing rheumatolo gist and is stable Erectile dysfunction 860 488840 F52.21 Viagra prn Anemia 158876261 D64.9 now nl Sick sinus syndrome 3608 3008 I49.5 s/p pace maker Sleep apnea 77467069 G47 .30 CPAP compliant Hernia of anterior abdominal wall 229076708 K43.9 seen surgeon, Vitamin D deficiency 347 00202 E55.9 otc Ex-smoker 1825555 Z87.89 1 Adult heal th examination 125291875 Z00.00 Thoracic back pain 50706 8004 M54.6 getting better Acute bronchitis 5290448 2 J20.9 Screening for malignant neoplasm of prostate 142953646 Z12.5 [id number] Silvestre Echols MD [facility] Internal Med [address] [facility] [place] [address] 08/09/2023 10:08:15 08/09/2023 10:51:41 Benign essential hypertension 7309284 I10 under control Diabetes mellitus 538739 09 E11.9 getting better, watch diet, lose weight Hyperlipidemia 03972499 E78.5 under control Obesity 534490450 E66.9 advised to lose more Rheumatoid arthritis 698 05860 M06.9 seeing rheumatolo gist Erectile dysfunction 860 026066 F52.21 Viagra prn Anemia 371712309 D64.9 improved Sick sinus syndrome 3608 3008 I49.5 s/p pace maker Sleep apnea 11497825 G47 .30 CPAP compliant Hernia of anterior abdominal wall 463418021 K43.9 seen surgeon, watching Vitamin D deficiency 347 98533 E55.9 otc Ex-smoker 3167957 Z87.89 1 Adult heal th examination 738654349 Z00.00 Colonoscop y- 02/24/2014 PSA- 03/02/2023 FLU- 12/2022 (per pt)Pneumov ax - 02/15/2016 Prevnar - 02/19/2019 COVID- Has had 5 vacc Thoracic back pain 99812 8004 M54.6 better [id number] Silvestre Echols MD [facility] Internal Med [address] [place] [address] 12/13/2023 09:54:43 12/13/2023 10:51:39 Benign essential hypertension 1979382 I10 watch Diabetes mellitus 599184 09 E11.9 getting better, Hyperlipidemia 77463327 E78.5 under control Obesity 745442898 E66.9 advised to lose more Rheumatoid arthritis 698 29866 M06.9 seeing rheumatolo gist Erectile dysfunction 860 557719 F52.21 Viagra prn Anemia 033589557 D64.9 improved Sick sinus syndrome 3608 3008 I49.5 s/p pace maker Sleep apnea 50353466 G47 .30 CPAP compliant Hernia of anterior abdominal wall 801030913 K43.9 seen surgeon, watching Vitamin D deficiency 347 48081 E55.9 otc Ex-smoker 3242415 Z87.89 1 Thoracic back pain 34990 8004 M54.6 better Adult [facility] th examination 360284671 Z00.00 Colonoscop y- 02/24/2014 PSA- 03/02/2023 FLU- 12/2022 (per pt)Pneumov ax - 02/15/2016 Prevnar - 02/19/2019 COVID- Has had 5 vacc Acute sinusitis 96519938 J01.90 mucinex Sebaceous cyst of skin 515000967 L72.3 Pain of ri ght knee joint 9822890496 17150 M25.834 [id number] Girish Porter MD S[address], [address] [place] [address] 12/26/2023 09:24:46 12/26/2023 10:10:23 Pain of right knee joint 5300558399 12464 M25.561 Osteoarthr itis of right knee joint 2101732710 61560 M17.11 [id number] Girish Porter MD [facility] [address] [place] [address] 02/26/2024 11:14:57 02/26/2024 11:27:48 Osteoarthritis of right knee joint 2561428583 46501 M17.11 Pain of ri ght knee joint 5893655103 26264 M25.833 [id number] Girish Porter MD [facility] [address] [place] [address] 03/04/2024 10:45:14 03/04/2024 11:13:43 Osteoarthritis of right knee joint 7830279667 27189 M17.11 Pain of ri ght knee joint 7113048263 15519 M25.240 [id number] Girish Porter MD [facility] [address] [place] [address] 04/02/2024 15:24:42 04/02/2024 15:37:52 Osteoarthritis of right knee joint 9126798631 27548 M17.11 Pain of ri ght knee joint 3244865605 36966 M25.167 [id number] Silvestre Echols MD [facility] Internal Med [address] [place] [address] 04/10/2024 09:32:36 04/10/2024 10:48:46 Benign essential hypertension 3771104 I10 watch, same meds Diabetes mellitus 558661 09 E11.9 seeing endo Hyperlipidemia 09370580 E78.5 under control Obesity 014896801 E66.9 advised to lose more Rheumatoid arthritis 698 33714 M06.9 seeing rheumatolo gist Erectile dysfunction 860 475366 F52.21 Viagra prn Anemia 163615326 D64.9 improved Sick sinus syndrome 3608 3008 I49.5 s/p pace maker Sleep apnea 81266558 G47 .30 CPAP compliant Hernia of anterior abdominal wall 244390298 K43.9 getting some pain Vitamin D deficiency 347 39085 E55.9 otc Ex-smoker 3239417 Z87.89 1 Thoracic back pain 87616 8004 M54.6 better Adult heal th examination 096994077 Z00.00 Colonoscop y- 02/24/2014 PSA- 03/02/2023 FLU- 12/2022Pneum ovax - 02/15/2016 Prevnar - 02/19/2019 COVID- Has had 5 vacc Screening for malignant neoplasm of prostate 691248213 Z12.5 [id number] Girish Porter MD [facility] [address] [place] [address] 05/16/2024 11:14:18 05/16/2024 11:30:16 Osteoarthritis of right knee joint 5515194802 55082 M17.11 Pain of ri ght knee joint 6754446555 65347 M25.249 [id number] Silvestre Echols MD [facility] Internal Med [address] [place] [address] 08/14/2024 09:41:57 08/14/2024 11:36:29 Benign essential hypertension 3310272 I10 watch, lose more weight Diabetes mellitus 516653 09 E11.9 seeing endo, getting better Hyperlipidemia 82279905 E78.5 under control Obesity 597446838 E66.9 advised to lose more Rheumatoid arthritis 698 74876 M06.9 seeing rheumatolo gist Erectile dysfunction 860 997930 F52.21 Viagra prn Anemia 997340768 D64.9 improved Sick sinus syndrome 3608 3008 I49.5 s/p pace maker Sleep apnea 20470528 G47 .30 CPAP compliant Hernia of anterior abdominal wall 604380515 K43.9 getting some pain Vitamin D deficiency 347 24921 E55.9 otc Ex-smoker 6472105 Z87.89 1 Thoracic back pain 53669 8004 M54.6 better Adult heal th examination 076180004 Z00.00 Colonoscop y- 02/24/2014 PSA- 03/02/2023 FLU- 12/2022Pneum ovax - 02/15/2016 Prevnar - 02/19/2019 COVID- Has had 5 vacc [id number] Girish Porter MD [facility] [place] [facility] [address] [place] [address] 10/11/2024 10:18:08 10/11/2024 10:50:15 Pain of right knee joint 2512525460 02332 M25.639 [id number] Girish Porter MD [facility] [address] [place] [address] 10/18/2024 10:20:09 10/18/2024 10:43:29 Pain of right knee joint 2793854897 05780 M25.561 Osteoarthr itis of right knee joint 6494530601 80352 M17.11 [id number] Lucas perez MD [facility] General Surgery [address] [facility] [address] [place] [address] 10/22/2024 10:52:19 10/22/2024 11:47:52 Ventral incisional hernia 195166209 K43.2 01646996 [id number] Silvestre Echols MD [facility] Internal Med [address] [facility] [place] [address] 10/23/2024 11:38:08 10/23/2024 14:08:35 Bilateral carpal tunnel syndrome 7382106879 0838602 G56.03 [id number] Girish Porter MD [facility] [address] [place] [address] 10/25/2024 10:10:30 10/25/2024 11:48:06 Pain of right knee joint 5050844660 17852 M25.561 Osteoarthr itis of right knee joint 0868171583 49591 M17.11 7213127 [id number] Lucas perez MD [facility] General Surgery [address] [facility] [address] [place] [address] 10/29/2024 10:42:04 10/29/2024 12:15:57 Ventral incisional hernia 743041831 K43.2 33445774 [id number] Silvestre Echols MD [facility] Internal Med [address] [facility] [place] [address] 12/19/2024 09:31:52 12/19/2024 11:46:02 Benign essential hypertension 4226639 I10 watch, lose more weight Diabetes mellitus 040517 09 E11.9 under control Hyperlipidemia 74034654 E78.5 under control Obesity 856939442 E66.9 advised to lose more Rheumatoid arthritis 698 97779 M06.9 seeing rheumatolo gist Erectile dysfunction 860 581378 F52.21 Viagra prn Anemia 231808201 D64.9 improved Sick sinus syndrome 3608 3008 I49.5 s/p pace maker Sleep apnea 53674245 G47 .30 CPAP compliant Hernia of anterior abdominal wall 777270395 K43.9 meeds surgery Vitamin D deficiency 347 32223 E55.9 otc Ex-smoker 5649920 Z87.89 1 Thoracic back pain 65428 8004 M54.6 better Adult heal th examination 586239481 Z00.00 Colonoscop y- 02/24/2014 PSA- 03/02/2023 FLU- 12/2022Pneum ovax - 02/15/2016 Prevnar - 02/19/2019 COVID- Has had 5 vacc Low back pain 063807466 M54.50 116008 start PT, and Tramadol [id number] Lucas perez MD [facility] General Surgery [address] [facility] [place] [address] 01/28/2025 10:55:08 01/28/2025 15:22:04 Health Concerns Section Related Observation LastModified by Organization Detai ls LastModified Time None Recorded Concern Status LastModified by Organization Details LastModified Time None Recorded Advance Directives Directive N: Payers Insurance Date Sequence Insurance Name Policy Number Policy Uribe Covered Member ID Uribe Member ID Guarantor Name 12/19/2024 [facility] Atilio Peres SELF SELF Atilio Peres 01/25/2025 1 [facility] ([facility] [id number] A Atilio Andrewasco [id number] Atilio Andrewasco Notes Date Note Type Note Provider Name and Address Organization Details Recorded Time 10/23/2024 text/html ROS as noted in the HPI Patient is 63y/o male who is here for concerns of carpal tunnel. He reports he has had diagnosed history with nerve conduction study but it has drastically worsened. He reports he has been wearing bilateral hand and wrist splints during this time but little relief. He reports that he has also lost the function while working. He denies injury, chest pain, shortness of breath, or abdominal pains. He reports numbness and tingling in fingers and wrist. Hernia surgery- , repair YAMILETH Mooney [address] [facility], [facility] [address], [place], [address], [employer] 10/23/2024 12:29:19 10/25/2024 text/html The patient returns for Orthovisc injection number 3 right knee. This is from the specialty pharmacy. The patient has severe primary osteoarthritis with [id number]-[id number] changes in the medial compartment of the right knee and significant changes in the patellofemoral articulation as well. He states he is starting to get some good relief from the 1st 2 rounds of injections denies any other problems today. LUCIEN Wade [address] [facility], [facility] [address], [place], [address], [employer] 10/25/2024 10:44:08 10/29/2024 text/html Pt here for f/u of abdominal bulge left of the umbilicus. Present for the past 5 years. States it seems to be getting worse, larger. No changes in diet, bowel habits, no nausea/vomiting/cons itpation. No fevers or constitutional symptoms.hx umbilical hernia repair 15 years ago [address].CT showed multiple small defects containing omental fat at anterior abdominal wall. Lucas Carballo MD [address] [facility], [facility] [address], [place], [address], [employer] 10/29/2024 12:14:54 12/19/2024 text/html Doing fine, no side affects, here for 4 month follow up.PT IS FASTING (bcbs) Low back pain, started few days ago without injury, went to ER, had xrays, on methocarbamol, not getting better, no radiation, using cane to walk DM- watching diet, Accu check today is 175, Has had a few in 50'sA1c- 7.3 at endo recently, seeing new milvia Ash, has LibreNo neuropathyDM eye exam yearly- 2023Meds- Jardiance 25 mg daily, Metformin 1,000 bid , Mounjaro 12.5 mg weekly, Humulin R ( was on tresiba and ozempic ), Humalog 60u BIDHTN- watchMeds- Losartan 100 mg - HCTZ 25 mg daily, Amlodipine 10 mg dailyHyperlipidemia- stable with meds, labs 11/16 , labs 05/21Meds- Simvastatin 40 mg dailyObesity- advised to lose, has lost 1 lbsSick sinus syndrome s/p pace maker, no symptoms, cardiology dr fuentes, gets pace maker , gets it checked regularlyEx - smoker , quit many years agoRheumatoid arthritis-- seeing range ecologist in [facility] , Dr Mackey- Methotrexate 2.5 mg 7 tabs every 7 days, Meloxicam 15 mg dailyVit D-- on otcSleep apnea- on cpap, compliant , gets good benefit from itBack pain is better, had PT and steroid shot DR Covington, recent flare up, using caneknee pain- x rays showed arthritis, seen ortho, Dr Hampton had steroid shots in the knee and shoulder and better,Vertigo- on meclizine prn , CT brain neg, seen ENT, had PT in the past better,Anemia- stable Right knee pain , has seen ortho dr hampton, had shots and better Inguinal hernia- needs surgery CTS- needs surgery on both sides Silvestre Echols MD [address], [place] [address], [place], [address], [employer] [facility] [employer] 12/19/2024 10:11:22 01/28/2025 text/html s/p r.a. lap ventral hernia repair two weeks ago. Still having some soreness. Regular appetite. regular activity levels. Regular urinary/bowel habits. No fevers. No drainage from incision sites.Some tenderness at umbilicus. Lucas Carballo MD [address], [facility] [address], [place], [address], [employer] [facility] [employer] 01/28/2025 15:22:03
--- OUTSIDE RECORDS SUMMARY | 2025-01-29 00:13 | XMS_ITS | Clinical Summary ---
Author Organization 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
--- OUTSIDE RECORDS SUMMARY | 2025-01-29 00:13 | XMS_ITS | Clinical Summary ---
Author Organization [facility] Address [address] [place] [address] Phone [email or web address] Care Team Providers Care Food Preparer Name Role Phone Unavailable Primary Care Provider [...] on file Legal Sex Male 12:18 AM MANAGER RISK Gender Identity Not on file Sexual Orientation [...] ssis Immunization (1 - Tdap) 11/08/1978 Pneumococcal: 50+ Years (1 o f 1 - PCV) 11/08/2009 Zoster Immunization (1 of 2) 11/08/2009 Covid-19 Immunization (1 - 2 025-26 season) 2024 Influenza Immunization (#1) 2024 HIB [...]
--- OUTSIDE RECORDS SUMMARY | 2025-01-29 00:14 | XMS_ITS | Encounter Summary ---
Author Organization [facility] Address 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 Gender Identity Not on file Sexual [...] Negative Presumptive Negative 09/25/2021 9:31 AM CDT [facility] Upper Respiratory ANTERIOR NARES SWAB / Unknown Collection / Unknown 09/25/2021 9:05 AM CDT 09/25/2021 9:10 AM CDT Narrative [facility] [employer] [facility] - 09/25/2021 9:31 AM CDT This [...] - GENERAL ORDERAB LES Final Result [facility] [employer] [facility] CLIA# [id number] [address] [place] [address] documented in this encounter Visit Diagnoses Not on filedocumented in this encounter Care Teams Route Supervisor Relationship Specialty Start Date End Date Conversion, History PCP - General 09/14/06 documented as of this encounter
--- OUTSIDE RECORDS SUMMARY | 2025-01-29 00:14 | XMS_ITS | Encounter Summary ---
Author Organization [facility] Address [address] [place] [address] Phone Care Team Providers Care Blood Bank Assistant Name Role Phone Alphonso Echols MD Primary Care Provider [phone] Encounter Details Date Type Department Care Team (Late st Contact Info) Description 05/29/2017 Orders Only [facility] ProviderSandrita MD [address] [place] [address] Social History Tobacco Use Types Packs/Day Years Used Date Smoking Tobacco: Former Smokeless Tobacco: Never Comments:Smoking History Pac ks/day: 1 Packs Alcohol Use Standard Drinks/Week Comments Yes 0 (1 standard drink = 0.6 oz pur e alcohol) Sex and Gender Information Value Date Recorded Sex Assigned at Not on file 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 Historical Provider LAB BLOOD ORDERABLES Sakina l Result documented in this encounter Visit Diagnoses Not on filedocumented in this encounter Care Teams Blood Bank Assistant Relationship Specialty Start Date End Date Alphonso Echols MD PCP - General Internal Medicine 05/29/17 documented as of this encounter
--- OUTSIDE RECORDS SUMMARY | 2025-01-29 00:14 | XMS_ITS | Clinical Summary ---
Author Organization [facility] Address [address] [place] [address] Care Team Providers Care Manager Medical Name Role Phone Alphonso Echols MD Primary Care Provider Source Comments [facility],non-[facility] Affiliates and Associated Physician Practices is amultiple site organization consisting of ambulatory clinics and hospital sitesin [place], [place], [place] and [place]. This disclosure is being madepursuant to the Care Everywhere program and may not contain all information available regarding this patient. Last updated 17.[facility] [employer] Allergies No known active allergies Medications * [...] on file Legal Sex Male 12:58 PM QUALITY ASSURANCE INSPECTOR Gender Identity Not on file Sexual Orientation Not on file Last Filed Vital Signs Vital Sign Reading Time Taken Comments Blood Pressure 156/77 05/16/2023 12:58 PM QUALITY ASSURANCE INSPECTOR Pulse 61 05/16/2023 12:58 PM QUALITY ASSURANCE INSPECTOR Temperature 36.4 C (97.6 F) 03/30/2023 9:17 PM QUALITY ASSURANCE INSPECTOR Respiratory Rate 24 03/30/2023 9:17 PM QUALITY ASSURANCE INSPECTOR Oxygen Saturation 98% 05/16/2023 12:58 PM QUALITY ASSURANCE INSPECTOR Inhaled Oxygen Concentration - - Weight 108.9 kg (240 lb) 05/16/2023 12:58 PM QUALITY ASSURANCE INSPECTOR Height 165.1 cm (5' 5) 05/16/2023 12:58 PM QUALITY ASSURANCE INSPECTOR Body Mass Index 39.94 05/16/2023 12:58 PM QUALITY ASSURANCE INSPECTOR Plan of Treatment Health Maintenance Due Date [...] - 106 mg/dL 12/01/2017 9:08 PM CDT [facility] Sodium 136 136 - 145 mmol/L 12/01/2017 9:08 PM CDT [facility] Potassium 3.5 3.5 - 5.1 mmol/L 12/01/2017 9:08 PM CDT [facility] Chloride 101 98 - 107 mmol/L 12/01/2017 9:08 PM CDT [facility] CO2 31 22 - 31 mmol/L 12/01/2017 9:08 PM CDT [facility] Calcium 9.7 8.5 - 10.1 mg/dL 12/01/2017 9:08 PM CDT [facility] Anion Gap 4(L) 8 - 16 mmol/L 12/01/2017 9:08 PM CDT [facility] BUN 16 7 - 21 mg/dL 12/01/2017 9:08 PM CDT [facility] Creatinine 1.00 0.50 - 1.30 mg/dL 12/01/2017 9:08 PM CDT [facility] Alkaline Phosphatase 103 38 - 126 U/L 12/01/2017 9:08 PM CDT [facility] ALT 43 13 - 61 U/L 12/01/2017 9:08 PM CDT [facility] AST 14 5 - 40 U/L [...] CDT 12/01/2017 8:47 PM CDT Chantel Rosado IT ASSOCIATE-WAVE SOLDER OFFBEARER LAB - CHEMISTRY ORD ERABLES Final Result [facility] [id number] [place] [id number] from Last 3 Months or Most Recently Relevant to Health Maintenance Insurance [employer] PAYOR GENERIC PAYOR GENERIC Care Teams Manager Medical Relationship Specialty Start Date End Date Alphonso Echols MD [address] [phone] PCP - General Internal Medicine 12/01/17
--- OUTSIDE RECORDS SUMMARY | 2025-01-29 00:14 | XMS_ITS | Clinical Summary ---
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
--- OUTSIDE RECORDS SUMMARY | 2025-01-29 00:14 | XMS_ITS | Encounter Summary ---
Author Organization [facility] Address [address] [place] [address] Care Team Providers Care Aircraft Lay Out Worker Name Role Phone Conversion, History Primary Care Provider Ciara dillon Encounter Details Date Type Department Care Team (Late st Contact Info) Description 10/06/2006 Outpatient Historical [facility] [place] [facility] (Adt Cardiology-[facility]) [address] [place] [address] Dandre Hernández MD [address] [facility] [address] [place] [address] Social History Tobacco Use Types Packs/Day Years Used Date Smoking Tobacco: Never Assessed Sex and Gender Information Value Date Recorded Sex Assigned at Not on file Legal Sex Male 4:17 AM VP DIRECTOR OF FINANCE Gender Identity Not on file Sexual Orientation Not on file documented as of this encounter Plan of Treatment Not on file documented as of this encounter Visit Diagnoses Not on filedocumented in this encounter Care Teams Aircraft Lay Out Worker Relationship Specialty Start Date End Date Conversion, History PCP - General 09/14/06 documented as of this encounter
--- OUTSIDE RECORDS SUMMARY | 2025-01-29 00:14 | XMS_ITS | Encounter Summary ---
Author Organization [facility] Address [address] [place] [address] Care Team Providers Care Ux Researcher Name Role Phone Alphonso Echols MD Primary Care Provider Encounter Details Date Type Department Care Team (Late st Contact Info) Description 02/08/2023 Lab Requisition [facility] - DermPath Lab [address] [facility] [place] [address] Bhupendra Andres MD [address] [place] [address] Social History Tobacco Use Types Packs/Day Years Used Date Smoking Tobacco: Former Smokeless Tobacco: Never Alcohol Use Standard Drinks/Week Comments No 0 (1 standard drink = 0.6 oz pur e alcohol) Sex and Gender Information Value Date Recorded Sex Assigned at Not on file Legal Sex Male 12:58 PM RUNWAY MODEL Gender Identity Not on file Sexual Orientation Not on file documented as of this encounter Plan of Treatment Not on file documented as of this encounter Procedures Procedure Name Priority Date/Time Associated Diagnosis Comments DERMATOPATHOLOGY Routine 02/07/2023 12:0 0 AM RUNWAY MODEL documented in this encounter Results * DERMATOPATHOLOGY (02/07/2023 12:00 AM RUNWAY MODEL) Case Report Dermatopathology Report Case: [id number] Authorizing Provider: Bhupendra Andres MD Collected: 02/07/2023 12:00 AM Ordering Location: [facility] DermPath Lab Received: 02/08/2023 09:22 AM Pathologist: Nicole Motley MD Specimen: Skin, left dorsal hand 3 2:11 PM [facility] DERMATOPATHOLOGY LABORATORY Final Diagnosis Specimen A. SKIN, left dorsal hand: DERMATOFIBROMA (D23.9) PRESENT AT MARGIN 3 2:11 PM [facility] DERMATOPATHOLOGY LABORATORY at [address] RUNWAY MODEL Clinical History Papule R/O Neoplasm Check Margin 3 2:11 PM [facility] DERMATOPATHOLOGY [facility]ORAT[facility] Gross Description Specimen A: Received is one formalin filled container labeled with the patient's name and designated left dorsal hand. The specimen consists of a shave biopsy measuring 4x3x1 mm. Jar 0. 3 2:11 PM [facility] DERMATOPATHOLOGY LABORATORY Microscopic Description Specimen A. SKIN, left dorsal hand: There is epidermal hyperplasia. Within the dermis, there are fibrohistiocytic cells in haphazard array among coarse collagen bundles. This lesion is present at the margin of the specimen. 3 2:11 PM [facility] DERMATOPATHOLOGY LABORATORY Disclaimer An external and internal positive and negative controls are appropriate for the histochemical, immunohistochemical and immunofluorescence stain(s) in this case (if any), except where stated explicitly. The performance characteristics of the stain(s) cited in this report were developed and its performance characteristic determined by the Dermatopathology Laboratory at [facility], directed by Dr. Thiago Guerra. These tests need not be, and therefore are not, approved by the [place] Food and Drug Administration. The tests are used for clinical purposes. Billing Codes Specimen Charges Stain Charges 13899 1 3 2:11 PM [facility] DERMATOPATHOLOGY LABORATORY Embedded Images 3 2:11 PM [facility] DERMATOPATHOLOGY LABORATORY Pathology/Cytolog y TISSUE SPECIMEN FROM SKIN / Unknown 02/07/2023 02/08/2023 9:22 AM [facility] us Bhupendra Andres MD LAB - PATHOLOGY/CYTOLOGY ORDERAB LES Final Result DERMATOPATHOLOGY LABORATORY [facility] - Department of Dermatology [address] [phone] documented in this encounter Visit Diagnoses Not on filedocumented in this encounter Care Teams Ux Researcher Relationship Specialty Start Date End Date Alphonso Echols MD [address] [facility] [address] [place] [phone] PCP - General Internal Medicine 12/01/17 documented as of this encounter
--- OUTSIDE RECORDS SUMMARY | 2025-01-29 00:14 | XMS_ITS | Encounter Summary ---
Author Organization [facility] Address [address] [place] [address] Care Team Providers Care Flat Spring Assembler Name Role Phone Conversion, History Primary Care [...] on file Legal Sex Male 4:17 AM SHRIMPER Gender Identity Not on file Sexual Orientation [...] Primary documented in this encounter Care Teams Flat Spring Assembler Relationship Specialty Start Date End Date Conversion, History PCP - General 09/14/06 documented as of this encounter
--- OUTSIDE RECORDS SUMMARY | 2025-01-29 00:14 | XMS_ITS | Encounter Summary ---
Author Organization [facility] Address 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
--- OUTSIDE RECORDS SUMMARY | 2025-01-29 00:14 | XMS_ITS | Clinical Summary ---
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
--- OUTSIDE RECORDS SUMMARY | 2025-01-29 00:14 | XMS_ITS | Encounter Summary ---
Author Organization [facility] Address 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 Gender Identity Not on file Sexual [...] DETECTED Not Detected 09/22/19 1:18 AM CDT [facility] [employer] [facility] PERFORMING LAB [facility] 09/21/2021 1:18 AM CDT [facility] Upper Respiratory Collection / Unknown 09/20/2021 9:27 AM CDT 09/20/2021 9:27 AM CDT Narrative [facility] - 09/21/2021 1:18 AM CDT This [...] MICROBIOLOGY - GENERAL ORDERAB LES Final Result [facility] CLIA# [id number] [address] [place] [address] documented in this encounter Visit Diagnoses Not on filedocumented in this encounter Care Teams Director Plans Relationship Specialty Start Date End Date Conversion, History PCP - General 09/14/06 documented as of this encounter
--- OUTSIDE RECORDS SUMMARY | 2025-01-29 00:14 | XMS_ITS | Clinical Summary ---
Author Organization [facility] Address [address] [place] [address] Care Team Providers Care Clarifying Plant Operator Name Role Phone Unavailable Primary Care [...] 36.1 C (97 F) 03/17/2021 1:57 PM PHOTOGRAMMETRIC STEREO COMPILER Respiratory Rate - - Oxygen Saturation - [...] Recently Relevant to Health Maintenance [facility]
--- NOTE | 2025-01-29 06:42 | PM.HPGS ---
History of Present Illness History of Present Illness Chief complaint: say carpal & cubital tunnel syn Narrative: Patient seen and examined in pre-operative holding area. No interval change in medical history or symptoms. Patient recalls previous discussion of benefits and alternatives to procedure. Continues to desire to proceed with right endoscopic possible open carpal tunnel release and right cubital tunnel release. Reviewed procedure, post-op expectations and risks including but not limited to bleeding, infection, injury to tendon/nerve/vessel, decreased hand function, stiffness, RSD, no change or worsening of symptoms. I discussed the possible use of assistants and their participation in the case. Patient stated understanding and signed the consent form wishing to proceed. 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 Hypokalemia Type 2 diabetes mellitus with hyperglycemia Metabolic syndrome SOB (shortness of breath) Pacemaker Hypertension COPD (chronic obstructive pulmonary disease) Arthritis Surgical History Surgical History No pertinent past surgical history Family History Family History Other Family history of genitourinary disease Hypertension Social History Social History (Updated 12/10/24 @ 09:00 by Madai Bhatti) Social History: Caffeine-occasionally Smoking packs per day: 1 Smoking cigarettes per day: 20.0 Years smoked: 32 Smoking pack-years: 32.00 Smoking status: Former smoker Tobacco type: cigarettes Smoking end date: 03/27/09 Alcohol intake: current Alcohol use details: occasionally Substance use: never Substance use type: does not use Lack of Transportation: No Lack of Food: Never True Current Housing: I Have Housing Concerned About Future Housing: No Difficulty Paying Gas/Electric Bills: No Difficulty Paying for Meds: No Currently Unemployed: No Education: High School Diploma/GED Difficulty w/ Childcare or Family Care: No Meds Home Medications and Allergies Home Medications ?Medication ?Instructions ?Recorded ?Confirmed ?Type amlodipine 10 mg tablet 10 mg PO DAILY 04/16/19 01/22/25 History aspirin 325 mg tablet 325 mg PO DAILY 04/16/19 01/22/25 History folic acid 1 mg tablet 1 mg PO DAILY 04/16/19 01/22/25 History losartan 100 1 tablet PO DAILY 04/16/19 01/22/25 History mg-hydrochlorothiazide 25 mg tablet lancets 33 gauge #200 ea 03/11/21 11/13/24 Rx sildenafil 50 mg tablet 50 mg PO DAILY PRN sexual activity 12/09/21 01/22/25 Rx #20 tabs pen needle, diabetic 32 gauge x See Rx Instructions .Route 04/08/22 01/22/25 Rx 5/32 (BD Shelby 2nd Gen Pen Needle) .COMPLEX #200 ea inhalational spacing device #1 ea 02/23/23 11/13/24 Rx (Aerochamber MV spacer) metformin 1,000 mg tablet 1,000 mg PO BID #180 tabs 02/23/23 01/22/25 Rx blood-glucose,stick puller,cont #1 ea 02/01/24 11/13/24 Rx (FreeStyle Yaz 3 [place]) rosuvastatin 40 mg tablet See Rx Instructions .Route 02/01/24 01/22/25 Rx .COMPLEX #90 ea pen needle, diabetic 32 gauge x #400 ea 02/12/24 11/13/24 Rx 32 (BD Ultra-Fine [place] Pen Needle) diclofenac sodium 75 mg 75 mg PO BID 03/06/24 01/22/25 History tablet,delayed release methotrexate sodium 2.5 mg tablet See Rx Instructions .Route .COMPLEX 03/06/24 01/22/25 History blood sugar diagnostic (OneTouch #200 ea 04/04/24 11/13/24 Rx Verio test strips) blood-glucose meter (OneTouch #1 ea 04/04/24 11/13/24 Rx Verio Flex Meter) lancets 33 gauge #200 ea 04/04/24 11/13/24 Rx bempedoic acid 180 mg tablet See Rx Instructions .Route 08/08/24 01/22/25 Rx (Nexletol) .COMPLEX #90 tabs ezetimibe 10 mg tablet See Rx Instructions .Route 11/01/24 01/22/25 Rx .COMPLEX #90 tabs insulin regular hum U-500 conc 500 See Rx Instructions subcut ONCE 11/05/24 01/22/25 Rx unit/mL(3 mL) subcut pen #36 mL blood-glucose sensor (FreeStyle #6 ea 11/13/24 11/13/24 Rx Yaz 3 Plus Sensor device) empagliflozin 25 mg tablet 25 mg PO DAILY 90 days #90 tabs 11/13/24 01/22/25 Rx (Jardiance) tirzepatide 15 mg/0.5 mL 15 mg (0.5 mL) subcut WEEKLY 3 11/13/24 01/22/25 Rx subcutaneous pen injector months #6.5 mL albuterol sulfate 90 mcg/actuation 2 puff inhalation PRN 01/22/25 01/22/25 History aerosol inhaler multivitamin (Daily Value tablet) 1 tablet PO DAILY 01/22/25 01/22/25 History ranolazine 500 mg tablet,extended 500 mg PO Q12H 01/22/25 01/22/25 History release,12 hr Allergies Allergy/AdvReac Type Severity Reaction Status Date / Time No Known Allergies Allergy Verified 01/22/25 14:35 Exam Narrative: unchanged Assessment and Plan Assessment and plan (1) Bilateral carpal tunnel syndrome: Code(s): G56.03 - Carpal tunnel syndrome, bilateral upper limbs Status: Acute Assessment and Plan: cont as above (2) Ulnar neuropathy at elbow: Qualifiers: Laterality: unspecified laterality Qualified Code(s): G56.20 - Lesion of ulnar nerve, unspecified upper limb Code(s): G56.20 - Lesion of ulnar nerve, unspecified upper limb Status: Acute
--- NOTE | 2025-01-29 06:42 | W.PM.PROC2 ---
Procedure Note - Detailed Date of Procedure 01/29/25 Pre-op Diagnosis say carpal & cubital tunnel syn Post-op Diagnosis Same Procedure Performed right ectr and CuTR Surgeon Joyce Burnette MD Glass Or Mirror Inspector Patricio Guillen PA-C Anesthesia MAC Description of Procedure INFORMED CONSENT: The patient was seen and examined and marked in the pre-op area.? The patient signed the consent form. PROCEDURE IN DETAIL:The patient taken back to OR on the stretcher in supine position. Time out performed with anesthesia, surgeon and staff agreeing on patient's name site and surgery to be performed SCDs were placed on the lower extremities and inflated. A tourniquet was placed on {right} upper extremity and antibiotics given IV After anesthesia administered sedation I injected {10}cc 1%lido with epi and 0.5% marcaine plain at the operative sites The?{right upper extremity}?was prepped and draped in sterile fashion the??{right upper extremity} was? exsanguinated with Esmarch bandage and tourniquet inflated to 250mmHg I made a transverse incision in the {right} volar distal wrist crease through skin and dermis with 15 blade scalpel.? Littler scissors spread down to antebrachial fascia. A small incision was made in antebrachial fascia allowing access to Carpal tunnel. I proceeded with sequential dilation staying in line with the ring finger and hugging the hook of the hamate.? I then used the synovial elevator to free any adhesions from the underside of the transverse carpal ligament. Next I was able to insert the Microaire endoscopic carpal tunnel device with direct visualization of the transverse fibers on the monitor and proceeded with complete segmental retrograde release of the ligament in its entirety.? I irrigated with normal saline and closed with 4-0 monocryl for dermis and subcuticular closure. I next proceeded with making a longitudinal incision between two heads for flexor carpi ulnaris at end of {right} cubital tunnel with 15 blade scalpel.? Littler scissors were used to spread down to FCU fascia.? An incision was made in FCU fascia and ulnar nerve identified exiting cubital tunnel.? I proceeded with complete retrograde release of the cubital tunnel including 7cm proximal for the intermuscular septum.? The nerve appeared healthy with visible vaso nervorum.? There was no subluxation on full elbow range of motion. ? I irrigated with normal saline and closure with 4-0 monocryl for dermis and subcuticular. The incisions were covered with Dermabond then 4x4s, anam, and a posterior elbow and volar wrist splint for patient safety, security and comfort and secured with ursula bandages after the tourniquet was let down noting the hand was warm and well perfused.? Patient awaken from anesthesia and transferred to recovery in stable condition Complications - none EBL- 1cc Disposition - home in stable condition Patricio Guillen PA-C was essential for positioning, retraction, closure and dressing placement. G Billing Surgery - Charge Forward: Surgery Billing ([id number] same for patricio adding )
[2025-01-29 12:05] VITALS: BP 176/64; PULSE 71; RESP 18; TEMP 36.5; O2SAT 99
[2025-01-29] MEDS: ACETAMINOPHEN 500 MG TABLET 1000 MG PO (12:30)
[2025-01-29] MEDS: LACTATED RINGERS 1,000 ML 30 ML IV CONT (12:35)
--- NOTE | 2025-01-29 13:26 | WPDANESEPPF ---
Anes - Initial Pre Proc Eval Procedure: Operation Date: 01/29/25 14:00 Proposed Procedures p Right Endoscopic Carpal Tunnel Release, Possible Open, Right Cubital Tunnel Release - Joyce Burnette MD Date/Time: 01/29/25 13:26 Surgeon: Joyce Burnette MD Pre Op Diagnosis: say carpal & cubital tunnel syn Patient Data Age: 64 Gender: M Height: 1.65 m Weight: 108.9 kg Allergies Allergy/AdvReac Type Severity Reaction Status Date / Time No Known Allergies Allergy Verified 01/22/25 14:35 Home Medications ?Medication ?Instructions ?Recorded ?Confirmed ?Type amlodipine 10 mg tablet 10 mg PO DAILY 04/16/19 01/22/25 History aspirin 325 mg tablet 325 mg PO DAILY 04/16/19 01/22/25 History folic acid 1 mg tablet 1 mg PO DAILY 04/16/19 01/22/25 History losartan 100 1 tablet PO DAILY 04/16/19 01/22/25 History mg-hydrochlorothiazide 25 mg tablet lancets 33 gauge #200 ea 03/11/21 11/13/24 Rx sildenafil 50 mg tablet 50 mg PO DAILY PRN sexual activity 12/09/21 01/22/25 Rx #20 tabs pen needle, diabetic 32 gauge x See Rx Instructions .Route 04/08/22 01/22/25 Rx / (BD Shelby 2nd Gen Pen Needle) .COMPLEX #200 ea inhalational spacing device #1 ea 02/23/23 11/13/24 Rx (Aerochamber MV spacer) metformin 1,000 mg tablet 1,000 mg PO BID #180 tabs 02/23/23 01/22/25 Rx blood-glucose,mushroom cutter,cont #1 ea 02/01/24 11/13/24 Rx (FreeStyle Yaz 3 [place]) rosuvastatin 40 mg tablet See Rx Instructions .Route 02/01/24 01/22/25 Rx .COMPLEX #90 ea pen needle, diabetic 32 gauge x #400 ea 02/12/24 11/13/24 Rx 5/32 (BD Ultra-Fine Shelby Pen Needle) diclofenac sodium 75 mg 75 mg PO BID 03/06/24 01/22/25 History tablet,delayed release methotrexate sodium 2.5 mg tablet See Rx Instructions .Route .COMPLEX 03/06/24 01/22/25 History blood sugar diagnostic (OneTouch #200 ea 04/04/24 11/13/24 Rx Verio test strips) blood-glucose meter (OneTouch #1 ea 04/04/24 11/13/24 Rx Verio Flex Meter) lancets 33 gauge #200 ea 04/04/24 11/13/24 Rx bempedoic acid 180 mg tablet See Rx Instructions .Route 08/08/24 01/22/25 Rx (Nexletol) .COMPLEX #90 tabs ezetimibe 10 mg tablet See Rx Instructions .Route 11/01/24 01/22/25 Rx .COMPLEX #90 tabs insulin regular hum U-500 conc 500 See Rx Instructions subcut ONCE 11/05/24 01/22/25 Rx unit/mL(3 mL) subcut pen #36 mL blood-glucose sensor (FreeStyle #6 ea 11/13/24 11/13/24 Rx Yaz 3 Plus Sensor device) empagliflozin 25 mg tablet 25 mg PO DAILY 90 days #90 tabs 11/13/24 01/22/25 Rx (Jardiance) tirzepatide 15 mg/0.5 mL 15 mg (0.5 mL) subcut WEEKLY 3 11/13/24 01/22/25 Rx subcutaneous pen injector months #6.5 mL albuterol sulfate 90 mcg/actuation 2 puff inhalation PRN 01/22/25 01/22/25 History aerosol inhaler multivitamin (Daily Value tablet) 1 tablet PO DAILY 01/22/25 01/22/25 History ranolazine 500 mg tablet,extended 500 mg PO Q12H 01/22/25 01/22/25 History release,12 hr Laboratory Tests 01/29/25 12:29 POC Capillary Glucose 196 H mg/dl (65-105) Patient hx anesthesia problems: none Family hx anesthesia problems: none Results Review: All pre-operative results and documents have been reviewed as part of the pre-operative evaluation. 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 Hypokalemia Type 2 diabetes mellitus with hyperglycemia Metabolic syndrome SOB (shortness of breath) Pacemaker Hypertension COPD (chronic obstructive pulmonary disease) Arthritis Surgical History Surgical History No pertinent past surgical history Family History Family History Other Family history of genitourinary disease Hypertension Social History Social History Social History: Caffeine-occasionally Smoking packs per day: 1 Smoking cigarettes per day: 20.0 Years smoked: 32 Smoking pack-years: 32.00 Smoking status: Former smoker Tobacco type: cigarettes Smoking end date: 03/27/09 Alcohol intake: current Alcohol use details: occasionally Substance use: never Substance use type: does not use Lack of Transportation: No Lack of Food: Never True Current Housing: I Have Housing Concerned About Future Housing: No Difficulty Paying Gas/Electric Bills: No Difficulty Paying for Meds: No Currently Unemployed: No Education: High School Diploma/GED Difficulty w/ Childcare or Family Care: No Anes - Eval Final PreProcedure Day of Procedure 01/29/25 13:26 Patient weight: morbidly obese Heart: regular rate and rhythm Lungs: decreased breath sounds Airway: Mallampati scale class II Neurological: alert and oriented Last oral intake: >/= 8 hours ASA classification: III Emergent: no Anesthetic plan: proceed Anesthesia type and monitoring: general GIVS and standard monitoring Results Review: All pre-operative results and documents have been reviewed as part of the pre-operative evaluation. Informed Consent: The patient's anesthetic plan and its attendant risks and benefits were discussed with the patient/family/POA. Questions were solicited and answers provided to the satisfaction of the patient/family/POA.
[2025-01-29] MEDS: ceFAZolin 2 GM in SODIUM CHLORIDE 0.9% IV 50 ML 100 ML IVPB (13:58)
[2025-01-29] MEDS: LIDO 1%/EPINEPHRINE 1:100,000 20 ML VIAL 10 ML INFILTRATE (14:11)
[2025-01-29 14:29] VITALS: BP 131/58; PULSE 68; RESP 14; O2SAT 97
[2025-01-29 14:55] VITALS: BP 148/81; RESP 20
[2025-01-29 15:19] VITALS: BP 177/73; PULSE 60; RESP 20
== END 2025-01-29 15:27 | disposition home or self-care (01) ==
PROVIDERS: PCP Internal Medicine; Visit Provider Plastic Surgery
PROC: 01N54ZZ Release Median Nerve, Percutaneous Endoscopic Approach (ICD-10-PCS; CPT 29848; principal; 2025-01-29 14:00)
DX: G56.01 Carpal tunnel syndrome, right upper limb (principal); G56.21 Lesion of ulnar nerve, right upper limb; E11.9 Type 2 diabetes mellitus without complications
CPT/HCPCS: 29848; 64718; 82948; J0690; A9270; J2003; J2004; J2250; J2704; J3010; J7120

== ENCOUNTER 2025-03-18 13:51 | Emergency (ER) | payer BC, SELFPAY ==
--- NOTE | ~2025-03-18 | XR_ITS ---
XR chest 2V 03/18/2025 14:34 Indication: Cough and shortness of breath Procedure: 2 view chest Comparison: 02/23/2023 Findings: Heart size normal. Pacemaker leads in expected position. No focal air space disease, pulmonary edema, pleural effusion or suspected pneumothorax. Stable pleural-based density left lower thorax, likely pleural thickening or healed rib fracture. Impression: 1: No acute cardiopulmonary disease. Reviewed, dictated and finalized at location [facility] Impression: 1: No acute cardiopulmonary disease.
--- NOTE | 2025-03-18 13:54 | ED.URI ---
HPI - URI/Sore Throat General Chief Complaint: Upper Respiratory Infection Stated Complaint: Cough Time Seen by Provider: 03/18/25 13:54 Source: patient Mode of arrival: ambulatory Limitations: no limitations History of Present Illness HPI Narrative: Atilio is a 64-year-old male patient presenting to the clinic today with complaints of productive cough, chest congestion, and sinus congestion since March 10. He was seen at another local urgent care and diagnosed with URI and not given any medications at that time. States the cough is getting worse and now he is bringing up green phlegm and blowing out green nasal drainage. Does feel short of breath. History of COPD. Related Data Home Medications ?Medication ?Instructions ?Recorded ?Confirmed ?Last Taken ?Type amlodipine 10 mg tablet 10 mg PO DAILY 04/16/19 03/18/25 01/28/25 History aspirin 325 mg tablet 325 mg PO DAILY 04/16/19 03/18/25 01/13/25 History folic acid 1 mg tablet 1 mg PO DAILY 04/16/19 03/18/25 01/28/25 History losartan 100 1 tablet PO DAILY 04/16/19 03/18/25 01/28/25 History mg-hydrochlorothiazide 25 mg tablet diclofenac sodium 75 mg 75 mg PO BID 03/06/24 03/18/25 01/28/25 History tablet,delayed release methotrexate sodium 2.5 mg tablet See Rx Instructions .Route .COMPLEX 03/06/24 03/18/25 01/28/25 History albuterol sulfate 90 mcg/actuation 2 puff inhalation PRN 01/22/25 02/26/25 Unknown History aerosol inhaler multivitamin (Daily Value tablet) 1 tablet PO DAILY 01/22/25 03/18/25 01/28/25 History ranolazine 500 mg tablet,extended 500 mg PO Q12H 01/22/25 03/18/25 01/28/25 History release,12 hr Allergies Allergy/AdvReac Type Severity Reaction Status Date / Time No Known Allergies Allergy Verified 03/18/25 14:01 Review of Systems Review of Systems: Pertinent positives per HPI. Patient denies any fever, chills, rash, visual changes, dizziness, chest pain, palpitations, nausea, vomiting, diarrhea, constipation, abdominal pain, or any urinary issues. 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 Hypokalemia Type 2 diabetes mellitus with hyperglycemia Metabolic syndrome SOB (shortness of breath) Pacemaker Hypertension COPD (chronic obstructive pulmonary disease) Arthritis Surgical History Surgical History (Updated 02/26/25 @ 11:43 by Leatha Almanza MA) History of carpal tunnel surgery H/O hernia repair (~12/2024) x3 No pertinent past surgical history (~12/2024) Family History Family History Other Family history of genitourinary disease Hypertension Social History Social History Social History: Caffeine-occasionally Smoking packs per day: 1 Smoking cigarettes per day: 20.0 Years smoked: 32 Smoking pack-years: 32.00 Smoking status: Former smoker Tobacco type: cigarettes Smoking end date: 03/27/09 Alcohol intake: current Drinks per week: 4 Alcohol use details: occasionally Substance use: never Substance use type: does not use Lack of Transportation: No Lack of Food: Never True Current Housing: I Have Housing Concerned About Future Housing: No Difficulty Paying Gas/Electric Bills: No Difficulty Paying for Meds: No Currently Unemployed: No Education: High School Diploma/GED Difficulty w/ Childcare or Family Care: No Living arrangements: with family Spiritual care concerns: No Comments At the time of my signature, I reviewed and agree with the nursing past medical, surgical, social, and family history. There is no relevant family history pertinent to the patient complaint. Exam Narrative: General: Well-developed, obese, acutely ill-appearing Head: Normocephalic, atraumatic Eyes: Pupils equally round and reactive to light bilaterally, EOM intact, sclera and conjunctive clear, no discharge, lids normal Ears: TMs intact and congested, ear canals clear, no drainage, grossly hearing normal. Nose: Nares patent, green nasal discharge, moderate inflammation, maxillary and frontal sinus tenderness. Mouth: Oral pharynx red without lesions or masses, good dentition, MMM. Postnasal drip Neck: Supple, trachea midline, no enlargement of anterior or posterior cervical nodes, no thyroid masses or goiter palpable. Cardio: Regular rate and rhythm, s1 and s2 normal, no murmur appreciated. Resp: Lung sounds tight with inspiratory rhonchi and expiratory wheezing, no rales or rubs Course Course Level of Care: Express Care Visit Vital Signs Vital signs: Vital Signs Temperature 36.9 C 03/18/25 14:04 Pulse Rate 85 03/18/25 14:04 Respiratory Rate 18 03/18/25 14:04 Blood Pressure 153/77 H 03/18/25 14:04 Pulse Oximetry 99 03/18/25 14:04 Oxygen Delivery Room Air 03/18/25 14:04 Temperature 36.9 C 03/18/25 14:04 Pulse Rate 85 03/18/25 14:04 Respiratory Rate 18 03/18/25 14:04 Blood Pressure 153/77 H 03/18/25 14:04 Pulse Oximetry 99 03/18/25 14:04 Oxygen Delivery Room Air 03/18/25 14:04 [facility] Narrative Medical decision making narrative: At the time of visit patient is resting comfortably on the exam table. Patient appears to be nontoxic. Complaints of productive cough, chest congestion, and sinus congestion since March 10. He was seen at another local urgent care and diagnosed with URI and not given any medications at that time. States the cough is getting worse and now he is bringing up green phlegm and blowing out green nasal drainage. Does feel short of breath. History of COPD. On exam patient has bilateral TMs intact and congested, green nasal drainage, moderate anterior turbinate inflammation, maxillary and frontal sinus tenderness, oral pharynx red with postnasal drip, lung sounds tight with inspiratory rhonchi and expiratory wheezing, heart rates regular rate rhythm Medications: Hand-held DuoNeb neb treatment was given in the clinic. Patient's aeration lung sounds improved-patient reports that it feels easier to breathe. Diagnostics: Chest x-ray was performed and shows no acute cardiopulmonary process. Plan: I suspect patient has sinusitis/bronchitis. Prescription for doxycycline, prednisone, Tessalon Perles, and inhaler was sent to the pharmacy. Discussed that the prednisone could raise patient blood sugar and he should keep a tight control on that. Supportive measures were discussed with the patient and they voiced understanding discharge instructions and agrees to treatment plan. Return precautions reviewed Differential Diagnosis Differential Diagnosis: Differential diagnostic considerations for upper respiratory infection include upper respiratory infection, croup, otitis media, sinusitis, viral infection, bronchitis, influenza, pharyngitis, strep, uvulitis. Imaging Data Radiologist's impression: ITS Impressions Chest X-Ray 03/18/25 14:56 Impression: 1: No acute cardiopulmonary disease. Discharge Plan Discharge Clinical Impression: Sinobronchitis Patient Disposition: Home Condition: Stable Instructions: Antibiotic Form, Acute Bronchitis (ED), Rhinosinusitis (ED) Additional Instructions: Chest x-rays negative for any acute cardiopulmonary process. DuoNeb treatment was given in the clinic today. Take prescription medications only as prescribed-prednisone, doxycycline, Tessalon Perles, and albuterol inhaler Increase fluids and stay well hydrated May take Tylenol or motrin as directed on bottle for pain/fever May use Flonase 1 spray in each nare daily May take OTC antihistamines such as Zyrtec or Claritin daily as directed on bottle May apply Vicks vapor rub to chest to open sinuses Sinus rinses for congestion Cepacol spray, cough drops, throat lozenges, warm tea with honey/lemon, gargle salt water to soothe throat BRAT diet for diarrhea Clear liquids x 24 hours then advance as tolerated for nausea/vomiting Go to the ED if you develop a worsening in your condition- high fever not controlled by Tylenol or Motrin, dehydration, weakness, lethargy, shortness of breath, or chest pain. Follow up with your PCP in 3-5 days if symptoms persist. Patient Language: Tanzanian Prescriptions: New doxycycline monohydrate 100 mg capsule 100 mg PO BID 7 Days Qty: 14 0RF benzonatate 200 mg capsule 200 mg PO TID 7 Days Qty: 21 0RF prednisone 20 mg tablet 40 mg PO DAILY 5 Days Qty: 10 0RF albuterol sulfate 90 mcg/actuation HFA aerosol inhaler 2 puff inhalation Q4-6H PRN (Reason: shortness of breath or wheezing) 30 Days Qty: 8.5 0RF No Action (DME) Aerochamber MV Spacer See Rx Instructions .Route Qty: 1 0RF Rx Instructions: As directed aspirin 325 mg tablet 325 mg PO DAILY folic acid 1 mg tablet 1 mg PO DAILY amlodipine 10 mg tablet 10 mg PO DAILY losartan-hydrochlorothiazide 100-25 mg tablet 1 tablet PO DAILY methotrexate sodium 2.5 mg tablet See Rx Instructions .ROUTE .COMPLEX Patient Comments: TAKES ON TUESDAYS FOR ARTHRITIS Rx Instructions: 7 tabs once weekly; (DME) FreeStyle Yaz 3 [place] Misc See Rx Instructions .Route Qty: 1 0RF Rx Instructions: As directed diclofenac sodium 75 mg tablet,delayed release (DR/EC) 75 mg PO BID hydrochlorothiazide 25 mg tablet 25 mg PO DAILY Qty: 90 2RF Rx Instructions: take one pill daily at noon Nexletol 180 mg tablet See Rx Instructions .ROUTE .COMPLEX Qty: 90 2RF Dose Instruction: Take 1 tablet by mouth once daily Rx Instructions: Take 1 tablet by mouth once daily Jardiance 25 mg tablet 25 mg PO DAILY 90 Days Qty: 90 1RF ezetimibe 10 mg tablet See Rx Instructions .ROUTE .COMPLEX Qty: 90 1RF Dose Instruction: Take 1 tablet by mouth once daily Rx Instructions: Take 1 tablet by mouth once daily metformin 1,000 mg tablet 1,000 mg PO BID Qty: 180 1RF (DME) pen needle, diabetic 32 gauge x 5/32 needle See Rx Instructions .ROUTE .MEDSUPPLY Qty: 400 1RF Rx Instructions: use four times daily rosuvastatin 40 mg tablet See Rx Instructions .ROUTE .COMPLEX Qty: 90 1RF Dose Instruction: Take 1 tablet by mouth once daily Rx Instructions: Take 1 tablet by mouth once daily tirzepatide 15 mg/0.5 mL pen injector 15 mg subcut WEEKLY 90 Days Qty: 6.5 2RF Patient Comments: TAKES ON WEDNESDAYS (DME) OneTouch Verio test strips Strip See Rx Instructions .ROUTE .MEDSUPPLY Qty: 200 3RF Rx Instructions: use to check BS 2 times daily (DME) lancets 33 gauge misc See Rx Instructions .ROUTE .MEDSUPPLY Qty: 200 3RF Rx Instructions: use to check BS 2 times daily (DME) FreeStyle Yaz 3 Plus Sensor Device See Rx Instructions .Route Qty: 6 1RF Rx Instructions: As directed ranolazine 500 mg tablet extended release 12 hr 500 mg PO Q12H albuterol sulfate 90 mcg/actuation HFA aerosol inhaler 2 puff INHALATION PRN multivitamin [Daily Value] Tablet 1 tablet PO DAILY tramadol 50 mg tablet 50 mg PO Q6H PRN (Reason: pain) Qty: 12 0RF sildenafil 50 mg tablet 50 mg PO DAILY PRN (Reason: sexual activity) Qty: 20 1RF Rx Instructions: administer 30 minutes to 4 hours before activity (DME) blood-glucose meter [OneTouch Verio Flex meter] Misc See Rx Instructions .ROUTE .MEDSUPPLY Qty: 1 0RF Rx Instructions: use meter to check BS 2 times daily insulin regular hum U-500 conc 500 unit/mL (3 mL) insulin pen See Rx Instructions subcut ONCE MDD 120 Qty: 24 3RF Patient Comments: TAKES 30 UNITS BEFORE EACH MEAL Rx Instructions: Humulin U500 insulin--> Take 45 units before brunch/noon meal and 45 units before dinner. Take it 20 minutes before you start eating. Try to take 2 dosages 10- 12 hours apart add more if sugar running high before meals sugar 150 - 200 take additional 5 units 201-250- take additional 10 units 251-300- take additional 15 units Follow-up/Referrals: Onesimo,Alphonso Robbins MD [Primary Care Provider, Unknown] Time of Disposition: 15:04 Quality NIHSS Nursing Documentation ED NIHSS nursing documentation: reviewed/agree
[2025-03-18 14:04] VITALS: BP 153/77; PULSE 85; RESP 18; TEMP 36.9; O2SAT 99
[2025-03-18] MEDS: ALBUTEROL SULFATE NEB 2.5 MG/3 ML INH INHALATION (14:30)
[2025-03-18] MEDS: IPRATROPIUM BR 0.02% INH SOLN 0.5 MG/2.5 ML VIAL INHALATION (14:30)
== END 2025-03-18 15:18 | disposition home or self-care (01) ==
PROVIDERS: Emergency Provider Nurse Practitioner Family; PCP Internal Medicine
DX: J32.9 Chronic sinusitis, unspecified (principal); J40 Bronchitis, not specified as acute or chronic; Z87.891 Personal history of nicotine dependence; E11.42 Type 2 diabetes mellitus with diabetic polyneuropathy; Z79.4 Long term (current) use of insulin; Z79.84 Long term (current) use of oral hypoglycemic drugs; I10 Essential (primary) hypertension; Z95.0 Presence of cardiac pacemaker; J44.9 Chronic obstructive pulmonary disease, unspecified; E78.5 Hyperlipidemia, unspecified; E78.00 Pure hypercholesterolemia, unspecified; M19.90 Unspecified osteoarthritis, unspecified site; Z79.82 Long term (current) use of aspirin
CPT/HCPCS: 71046; 94640; 99213; G0463